=== PATIENT | male | born 1930 | race Caucasian/White ===

== ENCOUNTER → 2016-06-20 | Outpatient (CLI) | payer MEDICARE, OTHER ==
[~2016-06-20] MED LIST: 1-ME1LIQ PO; ATEN1TAB73 PO; CLOP75 PO; ECOT81TA2 PO; ISOS120T14 PO; LOSA50TA PO; PROS5TAB2 PO; RANI150T PO
[2016-06-20 12:59] LABS: AUTOMATED NEUTROPHIL # 4.2 TH/MM3 (1.8-7.7); BASOPHIL % 0.7 % (0.0-2.0); EOSINOPHIL # 0.2 TH/MM3 (0-0.4); EOSINOPHIL % 2.7 % (0.0-4.0); HEMATOCRIT 39.3 % (39.0-51.0); HEMO FLAGS DIFF FINAL; LYMPH % 18.6 % (9.0-44.0); LYMPHOCYTE # 1.2 TH/MM3 (1.0-4.8); MEAN CELL VOLUME 85.1 FL (80.0-100.0); MEAN CORPUSCULAR HEMOGLOBIN 29.6 PG (27.0-34.0); MEAN CORPUSCULAR HGB CONC 34.7 % (32.0-36.0); MONO % 10.4 % (0.0-8.0); NEUT % 67.6 % (16.0-70.0); PLATELET COUNT 175 TH/MM3 (150-450); RED BLOOD COUNT 4.62 MIL/MM3 (4.50-5.90); RED CELL DISTRIBUTION WIDTH 15.4 % (11.6-17.2); WHITE BLOOD COUNT 6.2 TH/MM3 (4.0-11.0)
== END ==
LOC: PLAB 08:57
PROVIDERS: ATTEND Internal Medicine Interventional Cardiology
DX: I11.9 Hypertensive heart disease without heart failure (principal); E78.5 Hyperlipidemia, unspecified; R00.1 Bradycardia, unspecified
CPT/HCPCS: 36415; 85025

== ENCOUNTER → 2016-07-13 | Outpatient (CLI) | payer MEDICARE, OTHER ==
[2016-07-13 13:20] LABS: BACTERIA, URINE RARE /hpf; BLOOD, URINE NEG (NEG); GLUCOSE,URINE NEG (NEG); KETONE, URINE NEG (NEG); NITRITE,URINE NEG (NEG); URINE COLOR YELLOW (YELLW/STRAW)
[2016-07-13 13:26] LABS: ALT (GPT) 20 U/L (12-78); ANION GAP 7 MEQ/L (5-15); AST (GOT) 21 U/L (15-37); BICARBONATE 26.8 MEQ/L (21.0-32.0); BLOOD UREA NITROGEN 5 MG/DL (7-18); CHLORIDE 98 MEQ/L (98-107); GLOMERULAR FILTRATION RATE 101 ML/MIN (>89); GLUCOSE,FASTING 89 MG/DL (74-99); SODIUM (NA) 132 MEQ/L (136-145)
[2016-07-13 13:30] LABS: AUTOMATED NEUTROPHIL # 4.4 TH/MM3 (1.8-7.7); BASOPHIL % 0.8 % (0.0-2.0); EOSINOPHIL # 0.2 TH/MM3 (0-0.4); EOSINOPHIL % 2.5 % (0.0-4.0); HEMATOCRIT 38.7 % (39.0-51.0); HEMO FLAGS DIFF FINAL; LYMPH % 18.1 % (9.0-44.0); LYMPHOCYTE # 1.2 TH/MM3 (1.0-4.8); MEAN CELL VOLUME 82.9 FL (80.0-100.0); MEAN CORPUSCULAR HEMOGLOBIN 28.7 PG (27.0-34.0); MEAN CORPUSCULAR HGB CONC 34.6 % (32.0-36.0); MONO % 10.7 % (0.0-8.0); NEUT % 67.9 % (16.0-70.0); PLATELET COUNT 175 TH/MM3 (150-450); RED BLOOD COUNT 4.67 MIL/MM3 (4.50-5.90); WHITE BLOOD COUNT 6.4 TH/MM3 (4.0-11.0)
[2016-07-13 13:53] LABS: ALKALINE PHOSPHATASE 72 U/L (45-117); HDL CHOLESTEROL 46.3 MG/DL (40.0-60.0); LDL CHOLESTEROL 52 MG/DL (0-99); TOTAL BILIRUBIN ADULT 0.9 MG/DL (0.2-1.0)
== END ==
LOC: PLAB 09:29
PROVIDERS: ATTEND Internal Medicine
DX: E53.8 Deficiency of other specified B group vitamins (principal); E78.00 Pure hypercholesterolemia, unspecified; I10 Essential (primary) hypertension; R73.01 Impaired fasting glucose; R69 Illness, unspecified; E55.9 Vitamin D deficiency, unspecified; I25.10 Atherosclerotic heart disease of native coronary artery without angina pectoris; Z79.899 Other long term (current) drug therapy
CPT/HCPCS: 36415; 80053; 80061; 81001; 82306; 82607; 84443; 85025

== ENCOUNTER → 2016-08-31 | Outpatient (CLI) | payer MEDICARE, OTHER | LOC: PLAB 09:51 | DX: N40.0 Benign prostatic hyperplasia without lower urinary tract symptoms (principal) | CPT/HCPCS: 36415; 84153 ==

== ENCOUNTER 2016-12-19 18:22 | Inpatient (IN) | payer MEDICARE, OTHER ==
[~2016-12-19] VITALS: Ht 175.3 cm; Wt 79.8 kg
[2016-12-19 18:29] VITALS: BP 150/76; PULSE 98; RESP 16; TEMP 99.7; O2SAT 89
[2016-12-19] MEDS ORDERED: ZITHTAB PO (18:39)
[2016-12-19] MEDS ORDERED: CEFEPIME INJ 2,000 MG in SODIUM CHLORIDE 0.9% INJ 100 ML IV STA (18:50)
[2016-12-19] MEDS ORDERED: VANCOMYCIN INJ 1,500 MG in SODIUM CHLORID 0.9% 500 ML INJ 500 ML IV STA (18:50)
[2016-12-19] MEDS ORDERED: CEFEPIME INJ 2,000 MG in SODIUM CHLORIDE 0.9% INJ 100 ML IV SCH (19:00)
--- NOTE | 2016-12-19 19:20 | RADRPT ---
EXAM DATE/TIME: 12/19/2016 19:10 [facility] COMPARISON: CHEST SINGLE AP, March 18, 2016, 7:33. INDICATIONS : Fever starting today MEDICAL HISTORY : None. SURGICAL HISTORY : CABG. ENCOUNTER: Initial ACUITY: 1 day PAIN SCORE: 0/10 LOCATION: Bilateral chest FINDINGS: A single view of the chest demonstrates bibasilar patchy airspace disease. Cardiomegaly and previous CABG.. Osseous structures are intact. CONCLUSION: Bibasilar patchy pneumonia. Justin Li MD on December 19, 2016 at 19:18 Board Certified Radiologist. This report was verified electronically.
[2016-12-19 19:35] LABS: AUTOMATED NEUTROPHIL # 4.3 TH/MM3 (1.8-7.7); BASOPHIL % 0.4 % (0.0-2.0); EOSINOPHIL % 0.1 % (0.0-4.0); HEMATOCRIT 43.5 % (39.0-51.0); HEMO FLAGS DIFF FINAL; LYMPH % 11.1 % (9.0-44.0); LYMPHOCYTE # 0.6 TH/MM3 (1.0-4.8); MEAN CELL VOLUME 86.2 FL (80.0-100.0); MEAN CORPUSCULAR HEMOGLOBIN 29.9 PG (27.0-34.0); MEAN CORPUSCULAR HGB CONC 34.7 % (32.0-36.0); MONO % 13.2 % (0.0-8.0); NEUT % 75.2 % (16.0-70.0); PLATELET COUNT 126 TH/MM3 (150-450); RED BLOOD COUNT 5.05 MIL/MM3 (4.50-5.90); RED CELL DISTRIBUTION WIDTH 13.6 % (11.6-17.2); WHITE BLOOD COUNT 5.7 TH/MM3 (4.0-11.0)
[2016-12-19 19:43] LABS: CHLORIDE 94 MEQ/L (98-107); POTASSIUM 3.2 MEQ/L (3.5-5.1); SODIUM (NA) 130 MEQ/L (136-145)
[2016-12-19 19:47] LABS: ANION GAP 11 MEQ/L (5-15); BICARBONATE 24.8 MEQ/L (21.0-32.0); BLOOD UREA NITROGEN 10 MG/DL (7-18)
[2016-12-19 19:50] LABS: ALT (GPT) 33 U/L (12-78); AST (GOT) 45 U/L (15-37); GLOMERULAR FILTRATION RATE 90 ML/MIN (>89)
[2016-12-19 19:52] LABS: TOTAL BILIRUBIN ADULT 1.5 MG/DL (0.2-1.0)
[2016-12-19 19:53] LABS: ALKALINE PHOSPHATASE 71 U/L (45-117)
--- NOTE | 2016-12-19 19:59 | PD ---
HPI Chief Complaint: Fever Time Seen by Provider: 18:28 Travel History International Travel<30 days: No Contact w/Intl Traveler<30days: No Traveled to known affect area: No History of Present Illness HPI 86-year-old male arrives with family. He has been very weak for the past 5 or 6 days. He has developed a fever over the past couple days. His appetite has been markedly decreased and he is almost nothing. He reports a constant total body weakness. The cough is reported. He has no vomiting however he has been feeling nauseated. No diarrhea. Urination seems decreased. The patient underwent aortic valve replacement about 5 months ago. Numerous family members have had fever lately. He's had no chest pain or shortness of breath. PFSH Past Medical History Hx Anticoagulant Therapy: Yes (PLAVIX) Arthritis: Yes Asthma: No Blood Disorders: No Heart Rhythm Problems: No Cancer: No Cardiovascular Problems: Yes High Cholesterol: Yes Chemotherapy: No Chest Pain: Yes Congestive Heart Failure: No COPD: No Cerebrovascular Accident: Yes Coronary Artery Disease: Yes Diabetes: No Diminished Hearing: Yes Endocrine: No Glaucoma: No Genitourinary: Yes Headaches: No Hypertension: Yes Immune Disorder: No Kidney Stones: No Musculoskeletal: Yes Neurologic: Yes Psychiatric: No Reproductive: No Respiratory: No Immunizations Current: Yes Migraines: No Myocardial Infarction: Yes Radiation Therapy: No Renal Failure: No Seizures: No Sleep Apnea: No Thyroid Disease: No Past Surgical History Abdominal Surgery: Yes (LEFT HERNIA) AICD: No Arteriovenous Shunt: No Cardiac Surgery: Yes (CAB2000) Coronary Artery Bypass Graft: Yes (2000) Coronary Stent: Yes (04/2016) Ear Surgery: No Endocrine Surgery: No Eye Surgery: No Genitourinary Surgery: No Gynecologic Surgery: No Insulin Pump: No Joint Replacement: No Neurologic Surgery: No Oral Surgery: No Pacemaker: No Thoracic Surgery: No Valve Replacement: Yes (MAY 2016) Other Surgery: Yes Social History Alcohol Use: No Tobacco Use: No Substance Use: No Allergies-Medications (Allergen,Severity, Reaction): Coded Allergies: Iodine (Verified Allergy, Severe, 12/19/16) Crab (Verified Allergy, Mild, 12/19/16) ITCHING Reported Meds & Prescriptions Reported Meds & Active Scripts Active Reported Zithromax Z-Fam (Azithromycin) 250 Mg Dspk 250 Mg PO DIRECTED 500 MG (2 tabs) day 1, then 1 tab days 2-5. Ranitidine 150 mg (Ranitidine HCl) 150 Mg Tab 1 Tab PO DAILY PRN 1-Methyl 2-Pyrrolidinone (1-Methyl 2-Pyrrolidone (Bulk)) 10 Mg Tab 1 Tab PO DAILY Isosorbide Mononitrate Er (Isosorbide Mononitrate) 120 Mg Tab 120 Mg PO DAILY Losartan Potassium 50 MG (Losartan Potassium) 50 Mg Tab 50 Mg PO DAILY Tenormin (Atenolol) 25 Mg Tab 50 Mg PO BID Proscar (Finasteride) 5 Mg Tab 5 Mg PO DAILY Ecotrin Low Strength (Aspirin) 81 Mg Tabec 81 Mg PO HS Plavix (Clopidogrel Bisulfate) 75 Mg Tab 75 Mg PO DAILY Review of Systems Except as stated in HPI: all other systems reviewed are Neg General / Constitutional: Positive: Fever Cardiovascular: No: Chest Pain or Discomfort Respiratory: Positive: Cough, No: Shortness of Breath Physical Exam Narrative GENERAL: 86-year-old male well-nourished well-developed pleasant warm to palpation SKIN: Focused skin assessment warm/dry. HEAD: Atraumatic. Normocephalic. EYES: Pupils equal and round. No scleral icterus. No injection or drainage. ENT: No nasal bleeding or discharge. Mucous membranes pink and moist. NECK: Trachea midline. No JVD. CARDIOVASCULAR: Heart rate approximately 90-100. No murmur appreciated. RESPIRATORY: No accessory muscle use. Clear to auscultation. Breath sounds equal bilaterally. GASTROINTESTINAL: Abdomen soft, non-tender, nondistended. Hepatic and splenic margins not palpable. MUSCULOSKELETAL: No obvious deformities. No clubbing. No cyanosis. No edema. NEUROLOGICAL: Awake and alert. No obvious cranial nerve deficits. Motor grossly within normal limits. Normal speech. PSYCHIATRIC: Appropriate mood and affect; insight and judgment normal. Data Data Last Documented VS Vital Signs Date Time Temp Pulse Resp B/P Pulse Ox O2 Delivery O2 Flow Rate FiO2 12/19/16 18:56 93 Nasal Cannula 2 12/19/16 18:29 99.7 98 16 150/76 Vital signs reviewed Orders Complete Blood Count With Diff (12/19/16 18:50) Comprehensive Metabolic Panel (12/19/16 18:50) Lactic Acid Sepsis Protocol (12/19/16 18:50) Urinalysis - C+S If Indicated (12/19/16 18:50) Influenzae A/B Antigen (12/19/16 18:50) Blood Culture (12/19/16 18:50) Chest, Single Ap (12/19/16 18:50) Blood Glucose (12/19/16 18:50) Ecg Monitoring (12/19/16 18:50) Iv Access Insert/Monitor (12/19/16 18:50) Oximetry (12/19/16 18:50) Oxygen Administration (12/19/16 18:50) Vancomycin Inj (Vancomycin Inj) (12/19/16 18:50) Cefepime Inj (Maxipime Inj) (12/19/16 18:50) Admit Order (Ed Use Only) (12/19/16 20:11) Labs Laboratory Tests Test 12/19/16 19:25 White Blood Count 5.7 TH/MM3 Red Blood Count 5.05 MIL/MM3 Hemoglobin 15.1 GM/DL Hematocrit 43.5 % Mean Corpuscular Volume 86.2 FL Mean Corpuscular Hemoglobin 29.9 PG Mean Corpuscular Hemoglobin 34.7 % Concent Red Cell Distribution Width 13.6 % Platelet Count 126 TH/MM3 Mean Platelet Volume 7.0 FL Neutrophils (%) (Auto) 75.2 % Lymphocytes (%) (Auto) 11.1 % Monocytes (%) (Auto) 13.2 % Eosinophils (%) (Auto) 0.1 % Basophils (%) (Auto) 0.4 % Neutrophils # (Auto) 4.3 TH/MM3 Lymphocytes # (Auto) 0.6 TH/MM3 Monocytes # (Auto) 0.8 TH/MM3 Eosinophils # (Auto) 0.0 TH/MM3 Basophils # (Auto) 0.0 TH/MM3 CBC Comment DIFF FINAL Differential Comment Sodium Level 130 MEQ/L Potassium Level 3.2 MEQ/L Chloride Level 94 MEQ/L Carbon Dioxide Level 24.8 MEQ/L Anion Gap 11 MEQ/L Blood Urea Nitrogen 10 MG/DL Creatinine 0.82 MG/DL Estimat Glomerular Filtration 90 ML/MIN Rate Random Glucose 117 MG/DL Lactic Acid Level 1.3 mmol/L Calcium Level 8.3 MG/DL Total Bilirubin 1.5 MG/DL Aspartate Amino Transf 45 U/L (AST/SGOT) Alanine Aminotransferase 33 U/L (ALT/SGPT) Alkaline Phosphatase 71 U/L Total Protein 6.7 GM/DL Albumin 3.3 GM/DL MDM Medical Decision Making Medical Screen Exam Complete: Yes Emergency Medical Condition: Yes Medical Record Reviewed: Yes Differential Diagnosis Sepsis, pneumonia, UTI, viral syndrome, dehydration, renal failure, anemia Narrative Course CBC & BMP Diagram 12/19/16 19:25 LA 1.3 LFTs grossly unremarkable Chest x-ray reveals bilateral pneumonia as Vicryl and cefepime started Patient will be admitted for treatment of bilateral pneumonia. Case discussed with Yosi Muhammad. Diagnosis Primary Impression: PNA (pneumonia) Qualified Code: J18.9 - Pneumonia of both lower lobes due to infectious organism Admitting Information Admitting Physician Requests: Admit Stanley Farias MD Dec 19, 2016 19:59
[2016-12-19 20:29] VITALS: BP 151/75; PULSE 97; RESP 20; O2SAT 96
[2016-12-19 20:30] VITALS: PULSE 94; RESP 20; TEMP 100.1; O2SAT 96
[2016-12-19] MEDS ORDERED: ASPI81TA81 PO (20:56)
[2016-12-19] MEDS ORDERED: AMLO10TA2 PO (20:56)
[2016-12-19] MEDS ORDERED: ISOS120T PO (20:56)
[2016-12-19] MEDS ORDERED: ATEN50TA PO (20:56)
[2016-12-19] MEDS ORDERED: CLOP75TA PO (20:56)
[2016-12-19] MEDS ORDERED: ISOS60TA PO (20:56)
[2016-12-19] MEDS ORDERED: PROS5TAB PO (20:56)
[2016-12-19] MEDS ORDERED: LOSA50TA PO (20:56)
[2016-12-19] MEDS ORDERED: ATOR1TAB18 PO (20:56)
[2016-12-19] MEDS ORDERED: NALOXONE HCL 0.4 MG/ML AMP IV PRN (21:00)
[2016-12-19] MEDS ORDERED: Vancomycin Consult Pharmacy 1 EA OTHER SCH (21:00)
[2016-12-19] MEDS ORDERED: ACETAMINOPHEN 325 MG TAB PO PRN (21:30)
[2016-12-19 21:37] VITALS: O2SAT 93
[2016-12-19 21:57] VITALS: BP 145/72; PULSE 98; RESP 20; O2SAT 96
[2016-12-19] MEDS ORDERED: POTASSIUM CHLORIDE 25 MEQ EFFERVESCENT TAB PO ONE (22:00)
[2016-12-19] MEDS ORDERED: ONDANSETRON HCL 4 MG/2 ML VIAL IVP PRN (22:00)
[2016-12-19] MEDS ORDERED: SENNOSIDES 8.6 MG TAB PO PRN (22:00)
[2016-12-19] MEDS: SODIUM CHLOR 0.9% 1000 ML INJ 1,000 ML IV SCH (22:14)
[2016-12-19] MEDS: ACETAMINOPHEN 325 MG TAB PO PRN (22:15)
[2016-12-19] MEDS: HEPARIN SODIUM - SQ 10,000 UNITS/ML VIAL SQ SCH (22:15)
[2016-12-19] MEDS: SODIUM CHLORIDE 0.9% FLUSH 10 ML FLUSH IV FLUSH SCH (22:16)
[2016-12-19 23:27] VITALS: BP 114/70; TEMP 100.7
[2016-12-19 23:47] LABS: BLOOD, URINE LARGE (NEG); KETONE, URINE 15 mg/dL (NEG); NITRITE,URINE NEG (NEG)
[2016-12-19 23:52] LABS: GLUCOSE,URINE 1000 OR GREATER mg/dL (NEG); URINE COLOR AMBER (YELLW/STRAW)
[2016-12-19 23:53] LABS: COMMENT (UR) CULT NOT INDICATED; CULTURE IF INDICATED CULT NOT INDICATED; SQUAMOUS EPITHELIAL CELL URINE 0-5 /hpf (0-5); WBC, URINE 0-2 /hpf (0-5)
[2016-12-20] VITALS (8 sets, daily range): BP systolic 95–133; BP diastolic 64–78; PULSE 76–120; RESP 15–18; TEMP 97–98.7; O2SAT 92–98
[2016-12-20 06:18] LABS: BASOPHIL % 0.5 % (0.0-2.0); EOSINOPHIL % 0.5 % (0.0-4.0); HEMATOCRIT 46.3 % (39.0-51.0); HEMO FLAGS DIFF FINAL; LYMPH % 15.4 % (9.0-44.0); LYMPHOCYTE # 0.8 TH/MM3 (1.0-4.8); MEAN CELL VOLUME 87.3 FL (80.0-100.0); MEAN CORPUSCULAR HEMOGLOBIN 28.8 PG (27.0-34.0); MONO % 12.9 % (0.0-8.0); NEUT % 70.7 % (16.0-70.0); PLATELET COUNT 112 TH/MM3 (150-450); RED CELL DISTRIBUTION WIDTH 13.4 % (11.6-17.2); WHITE BLOOD COUNT 5.5 TH/MM3 (4.0-11.0)
[2016-12-20 06:36] LABS: CHLORIDE 96 MEQ/L (98-107); POTASSIUM 3.3 MEQ/L (3.5-5.1); SODIUM (NA) 132 MEQ/L (136-145)
[2016-12-20] MEDS: CEFEPIME INJ 2,000 MG in SODIUM CHLORIDE 0.9% INJ 100 ML IV SCH ×2 (06:39→18:07)
[2016-12-20] MEDS: SODIUM CHLOR 0.9% 1000 ML INJ 1,000 ML IV SCH ×2 (06:40→15:31)
[2016-12-20] MEDS: SODIUM CHLORIDE 0.9% FLUSH 10 ML FLUSH IV FLUSH PRN (06:40)
[2016-12-20 06:44] LABS: ANION GAP 10 MEQ/L (5-15); BICARBONATE 26.5 MEQ/L (21.0-32.0)
[2016-12-20 06:45] LABS: BLOOD UREA NITROGEN 10 MG/DL (7-18)
[2016-12-20 06:47] LABS: ALT (GPT) 33 U/L (12-78); AST (GOT) 42 U/L (15-37)
[2016-12-20 06:48] LABS: GLOMERULAR FILTRATION RATE 98 ML/MIN (>89); TOTAL BILIRUBIN ADULT 1.4 MG/DL (0.2-1.0)
[2016-12-20 06:50] LABS: ALKALINE PHOSPHATASE 69 U/L (45-117)
[2016-12-20] MEDS: ACETAMINOPHEN 325 MG TAB PO PRN (08:55)
[2016-12-20] MEDS: HEPARIN SODIUM - SQ 10,000 UNITS/ML VIAL SQ SCH ×2 (08:56→21:07)
[2016-12-20] MEDS: SODIUM CHLORIDE 0.9% FLUSH 10 ML FLUSH IV FLUSH SCH ×2 (09:00→20:28)
[2016-12-20] MEDS ORDERED: ISOSORBIDE MONONITRATE 60 MG TAB PO SCH (09:30)
--- NOTE | 2016-12-20 09:53 | MH ---
cc: JARAD FALCON MD DATE OF ADMISSION: 12/19/2016 CHIEF COMPLAINT Fever, cough. HISTORY OF PRESENT ILLNESS This is an 86-year-old male with past medical-surgical history significant for arthritis. History of hyperlipidemia, history of stroke in the past, coronary artery disease, hard of hearing, history of bypass surgery in 2000 and stent placement in the heart in April 2016, history of left inguinal hernia repair and aortic valve replacement in May 2016. He came to the ER at [facility] [place] complaining of cough, fever and feeling generalized weak and tired for the last 5-6 days. He developed a fever for the last 2 days and appetite has been markedly decreased and almost has no appetite. He reported constant body total weakness and cough is dry and he has been feeling nauseated and decreased urination. Denies any chest pain, shortness of breath. Other than that, nothing significant. PAST MEDICAL-SURGICAL HISTORY As dictated above. SOCIAL HISTORY Denies smoking, drinking, taking any drugs. Lives at home with the . He is retired. FAMILY HISTORY Significant that Dad of a stroke. ALLERGIES IODINE. CRAB. MEDICATIONS 1. Zithromax Z-Fam p.o. as directed. 2. Ranitidine 150 mg daily. 3. 1-Methyl 2-pyrrolidine 10 mg daily. 4. Isosorbide mononitrate 120 mg p.o. daily. 5. Losartan 50 mg p.o. daily. 6. Tenormin 25 mg twice a day. 7. Proscar 5 mg p.o. daily. 8. Ecotrin 81 mA daily. 9. Plavix 75 mg daily. REVIEW OF SYSTEMS All review of systems are negative except for fever, cough, feeling generalized weak and tired. All other review of systems negative. PHYSICAL EXAMINATION GENERAL: This is an 86-year-old male sitting on the bed, not in acute distress. VITAL SIGNS: Temperature 98.7, heart rate 95, respirations 18, blood pressure 115/72, O2 saturation 93% with 2 liters nasal cannula. HEENT: Normocephalic, atraumatic. EOMI. PERRL. Oral mucosa moist. NECK: Supple. No visible thyromegaly or neck mass. Trachea is central. CVS: Regular rate and rhythm. RESPIRATIONS: Clear to auscultation bilaterally. ABDOMEN: Soft, nontender. Bowel sounds audible. EXTREMITIES: No cyanosis or clubbing. Full range of motion of all extremities. NEURO: Awake, alert, oriented x 4. No focal deficits. SKIN: Warm and dry. PSYCH: The patient is cooperative. Mood and affect normal. LABORATORY DATA CBC is totally unremarkable except for platelet count of 112 - low. BMP totally unremarkable except for sodium of 132 - low, potassium 3.3 - low, chloride 96 - low, calcium 8.2 - low, total bilirubin 1.4 - high. AST 42 0- high, albumin 3.1 - low. Urine examination done, showed RBC 10-14, large occult blood, glucose greater than 1000. Culture not indicated. Blood cultures x 2 done, negative so far. Influenza A and B antigen negative. X-RAYS Chest x-ray was done shows bibasilar patchy airspace disease, cardiomegaly and previous CABG, osseous structures intact. ASSESSMENT AND PLAN 1. This is an 86-year-old male, diagnosed with generalized weakness and cough and a fever secondary to bilateral pneumonia. The patient is on vancomycin and cefepime. I will consult Pulmonary for further recommendation. 2. His hyponatremia will be monitored. 3. Hypokalemia. Replace potassium. 4. History of coronary artery disease. Continue home medications. 5. History of hypertension. Continue home medications. will monitor blood pressure. 6. GERD. of cigar Protonix 40 mg p.o. daily. 7. DVT prophylaxis. Heparin 5000 units subcutaneous q. 12-hours. 8. GI prophylaxis. Protonix 40 mg p.o. daily. 9. We are going to manage the patient on a daily basis and make recommendations on a daily basis. Jarad Falcon MD EA/ASHLEY /9:12 AM /9:35 AM
[2016-12-20] MEDS ORDERED: POTASSIUM CHLORIDE 10 MEQ CONTROLLED RELEASE TAB PO ONE (10:00)
[2016-12-20] MEDS: ATENOLOL 50 MG TAB PO SCH ×2 (10:25→21:07)
[2016-12-20] MEDS: ISOSORBIDE MONONITRATE 60 MG TAB PO SCH (10:25)
[2016-12-20] MEDS: ASPIRIN EC 81 MG TABEC PO SCH (10:25)
[2016-12-20] MEDS: CLOPIDOGREL 75 MG TAB PO SCH (10:25)
[2016-12-20] MEDS: FINASTERIDE 5 MG TAB PO SCH (10:25)
[2016-12-20] MEDS: LOSARTAN 50 MG TAB PO SCH (10:25)
[2016-12-20] MEDS: VANCOMYCIN 1,500 MG/NS 500 ML IV SCH ×2 (15:25)
[2016-12-20] MEDS: RESP: ALBUTEROL 2.5 MG/IPRATROPIUM 0.5 MG NEB (SCH) NEB ×2 (16:04→21:37)
[2016-12-20] MEDS: ACETAMINOPHEN/HYDROcodone 325 MG/5 MG TAB PO PRN (18:07)
[2016-12-20] MEDS: ATORVASTATIN 40 MG TAB PO SCH (21:07)
[2016-12-20] MEDS: methylPREDNISolone SOD SUCC 40 MG/1 ML VIAL IV PUSH SCH (21:08)
[2016-12-20 21:21] LABS: BLOOD GAS BASE EXCESS -0.7 mmol/L (-2-2); BLOOD GAS CARBOXYHEMOGLOBIN 1.9 % (0-4); BLOOD GAS HCO3 23 mmol/L (22-26); BLOOD GAS METHEMOGLOBIN 0.8 % (0-2); BLOOD GAS OXYGEN CONTENT 16.7 Vol % (12.0-20.0); BLOOD GAS PCO2 33 mmHG (38-42); BLOOD GAS PO2 57 mmHG (61-120); BLOOD GAS TOTAL HGB 13.5 G/DL (12.0-16.0); TEMP CORR TO 98.6
[2016-12-20 21:23] LABS: CRITICAL VALUE YES; DRAW SITE RT RADIAL; FIO2 21 %; NUMBER OF ARTERIAL PUNCTURES 1; STAT NO; ULNAR PULSE Y
[2016-12-20 21:24] LABS: BLOOD GAS O2 HGB SATURATION 88 % (90-100)
--- NOTE | 2016-12-20 21:56 | RADRPT ---
EXAM DATE/TIME: 12/20/2016 21:15 [facility] COMPARISON: No previous studies available for comparison. INDICATIONS : Asbestosis. Bilateral PNA RADIATION DOSE: 12.24 CTDIvol (mGy) MEDICAL HISTORY : Cerebrovascular disease. SURGICAL HISTORY : CABG Hernia repair, Aortic valve replacement ENCOUNTER: Initial ACUITY: 1 day PAIN SCALE: 0/10 LOCATION: chest TECHNIQUE: Volumetric scanning of the chest was performed. Using automated exposure control and adjustment of t he mA and/or kV according to patient size, radiation dose was kept as low as reasonably achievable to obtain optimal diagnostic quality images. DICOM format image data is available electronically for r eview and comparison. Follow-up recommendations for incidentally detected pulmonary nodules are based at a minimum on nodul e size and patient risk factors according to Fleischner Society Guidelines. FINDINGS: There is pulmonary fibrosis which has a predominantly basilar and somewhat peripheral distribution. T here is honeycombing at both lung bases with traction bronchiectasis. No calcified pleural plaques ar e seen to suggest prior asbestos exposure. There is no pleural or pericardial effusion. Stent graft i s present in the ascending aorta. There is dense coronary calcification. Elevated right hemidiaphragm . Multiple borderline to mildly enlarged mediastinal lymph nodes are present. No acute findings in the upper abdomen. Colonic ileus noted. CONCLUSION: 1. Pulmonary fibrosis in a basilar distribution with traction bronchiectasis and honeycombing. 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 No autumn dence for asbestos pleural disease. No effusions. Previous surgery as above. 2. No focal dense consolidation identified. No pneumothorax. Arun Thomas MD on December 20, 2016 at 21:51 Board Certified Radiologist. This report was verified electronically.
--- NOTE | 2016-12-20 22:39 | MB ---
cc: Anusha CHAN M.D. DATE OF CONSULTATION 12/20/16 REASON FOR CONSULTATION Pneumonia and respiratory distress. HISTORY OF PRESENT ILLNESS This is an 86-year-old white male who was admitted with complaints of fever, shortness of breath, weakness and wheezing. The patient also had been taking very little orally, became quite dehydrated and apparently had some nausea and had a poor urine output. Upon admission, the patient did have a chest x-ray which showed patchy bilateral basilar infiltrates. He also was hyponatremic and hypokalemic. He has been started on IV fluids and feels a little better but on oxygen at two liters nasal cannula. He does have a cough but does not bring up any sputum and he denies hemoptysis. PAST HISTORY 1. History for coronary artery disease and coronary artery bypass. He has had coronary stenting as well. 2. Inguinal hernia repair in the past 3. Aortic valve replacement done in May this year. 4. Previous history for strokes 5. History for hyperlipidemia 6. Hypertension 7. 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 HABITS The patient does not smoke. No significant alcohol use. 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 FAMILY HISTORY Significant for hypertension and strokes. ALLERGIES IODINE MEDICATIONS 1. Losartan 50 mg a day, 2. Isordil 120 mg daily, 3. Tenormin 25 mg b.i.d. 4. Proscar 5 mg a day, 5. Plavix 75 mg daily, 6. Ecotrin 81 mg 7. Zantac 150 mg a day. REVIEW OF SYSTEMS The patient has gained weight. He has some leg swelling. Denies headaches or blackouts. He has some urinary frequency and he has some anxiety. He does have joint pains of the extremities. Denies any chest pains. The other system review as in presenting complaint. PHYSICAL EXAMINATION GENERAL: This is an averagely built elderly man who is pale and in no acute distress. VITAL SIGNS: Blood pressure 140/70, pulse is 75, respirations 18, temperature 97.5 HEENT: Head normocephalic. Pupils are reactive and equal. Tongue is moist. Throat is mildly injected. Nasal mucosa edematous. NECK: No bruits or thyroid enlargement or lymphadenopathy. Trachea midline. CHEST: Distant breath sounds with crackles at both lung bases with wheezes bilaterally, prolonged expirations. CARDIAC: Heart sounds are irregular S1-S2. No murmur. No S3. ABDOMEN: Soft, protuberant. No masses, no organomegaly or tenderness. Bowel sounds are active. EXTREMITIES: Mild edema with decreased peripheral pulses. NEUROLOGIC: Reflexes are 1+ with no gross motor deficits. Cranial nerves grossly intact. RECTAL: Exam is deferred. SKIN: No lesions. IMPRESSION 1. Bibasilar pulmonary infiltrates with atelectasis and possible basilar pneumonia. 2. History of coronary artery disease status post CABG 3. Hyperkalemia 4. Hypertension 5. 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 Gastroesophageal reflux. PLAN The patient has been started on antibiotic coverage including cefepime 2 grams b.i.d. and vancomycin 1.5 grams every 18 hours which we will continue. Add Zithromax 500 mg daily for atypicals. Nebulized DuoNeb solution q. six. A CT scan of the chest to be done to evaluate him for infiltrates and pleural plaques. Solu-Medrol 40 mg IV q.8 h was added. Pulmonary function study will be done at the bedside with bronchodilators. The patient will also give us a sputum specimen for culture and Gram stain and blood gases done on room air and oxygen supplementation placed at 2 liters nasal cannula if he is hypoxic. Thank you, Dr. Jarad Bedoya, for this consultation. MD JILL Manuel/ /8:11 PM /10:20 PM
[2016-12-21] VITALS (9 sets, daily range): BP systolic 138–150; BP diastolic 72–87; PULSE 76–88; RESP 18–24; TEMP 96.9–97.4; O2SAT 92–96
[2016-12-21] MEDS: SODIUM CHLOR 0.9% 1000 ML INJ 1,000 ML IV SCH ×2 (02:58→10:04)
[2016-12-21] MEDS: RESP: ALBUTEROL 2.5 MG/IPRATROPIUM 0.5 MG NEB (SCH) NEB ×4 (03:52→22:30)
[2016-12-21 06:08] LABS: HEMATOCRIT 44.3 % (39.0-51.0); MEAN CELL VOLUME 87.2 FL (80.0-100.0); MEAN CORPUSCULAR HEMOGLOBIN 29.8 PG (27.0-34.0); MEAN CORPUSCULAR HGB CONC 34.2 % (32.0-36.0); PLATELET COUNT 110 TH/MM3 (150-450); RED BLOOD COUNT 5.07 MIL/MM3 (4.50-5.90); RED CELL DISTRIBUTION WIDTH 13.7 % (11.6-17.2); WHITE BLOOD COUNT 4.2 TH/MM3 (4.0-11.0)
[2016-12-21 06:09] LABS: CHLORIDE 97 MEQ/L (98-107); HEMO FLAGS AUTO DIFF; POTASSIUM 3.2 MEQ/L (3.5-5.1); SODIUM (NA) 132 MEQ/L (136-145)
[2016-12-21 06:16] LABS: ANION GAP 10 MEQ/L (5-15); BICARBONATE 25.3 MEQ/L (21.0-32.0)
[2016-12-21] MEDS: methylPREDNISolone SOD SUCC 40 MG/1 ML VIAL IV PUSH SCH ×3 (06:16→21:36)
[2016-12-21 06:17] LABS: BLOOD UREA NITROGEN 6 MG/DL (7-18)
[2016-12-21] MEDS: CEFEPIME INJ 2,000 MG in SODIUM CHLORIDE 0.9% INJ 100 ML IV SCH ×2 (06:17→18:36)
[2016-12-21] MEDS: ISOSORBIDE MONONITRATE 60 MG TAB PO SCH (06:17)
[2016-12-21 06:19] LABS: ALT (GPT) 31 U/L (12-78); AST (GOT) 42 U/L (15-37)
[2016-12-21 06:20] LABS: GLOMERULAR FILTRATION RATE 109 ML/MIN (>89)
[2016-12-21 06:21] LABS: TOTAL BILIRUBIN ADULT 1.2 MG/DL (0.2-1.0)
[2016-12-21] MEDS: ACETAMINOPHEN/HYDROcodone 325 MG/5 MG TAB PO PRN ×2 (06:21)
[2016-12-21 06:22] LABS: ALKALINE PHOSPHATASE 61 U/L (45-117)
[2016-12-21 06:26] LABS: BANDS 4 % (0-6); NEUTROPHIL # MANUAL DIFF 3.7 TH/MM3 (1.8-7.7); PLATELET ESTIMATE SMEAR LOW (NORMAL); PLATELET MORPHOLOGY NORMAL (NORMAL); POLYS (SEG NEUTROPHILS) 85 % (16-70); SCAN/DIFF AUTO DIFF CONFIRMED; WBC DIFF SAMPLE 100
--- NOTE | 2016-12-21 08:20 | HHI.PR ---
Subjective History of Present Illness Patient still SOB but better no acute issue. Review of Systems Constitutional Constitutional: Fatigue, Weakness Pulmonary Respiratory: Coughing, Shortness of Breath Vitals/Results Intake & Output 12/20/16 12/20/16 12/21/16 15:00 23:00 07:00 Intake Total 3460 ml 150 ml Output Total 2000 ml 800 ml Balance 1460 ml -650 ml Intake Oral 1460 ml 150 ml IV Total 2000 ml Output Urine Total 2000 ml 800 ml # Voids 3 # Bowel Movements 2 Vital Signs Vital Signs Date Time Temp Pulse Resp B/P Pulse Ox O2 Delivery O2 Flow Rate FiO2 12/21/16 00:00 97.2 77 19 140/87 95 12/20/16 21:35 93 Nasal Cannula 2.00 12/20/16 20:00 98.7 87 17 130/74 93 12/20/16 18:14 97.7 76 16 133/77 95 12/20/16 16:07 98 Nasal Cannula 2.00 12/20/16 14:01 97.0 77 15 95/64 98 12/20/16 10:15 98.0 120 15 128/78 94 12/20/16 09:55 20 CBC/BMP: 12/21/16 0508 12/21/16 0508 Lab Results Laboratory Tests Test 12/20/16 12/21/16 21:08 05:08 Blood Gas Puncture Site RT RADIAL Blood Gas Patient Temperature 98.6 Blood Gas HCO3 23 mmol/L Blood Gas Base Excess -0.7 mmol/L Blood Gas Oxygen Saturation 88 % Arterial Blood pH 7.46 Arterial Blood Partial 33 mmHG Pressure CO2 Arterial Blood Partial 57 mmHG Pressure O2 Arterial Blood Oxygen Content 16.7 Vol % Arterial Blood 1.9 % Carboxyhemoglobin Arterial Blood Methemoglobin 0.8 % Blood Gas Hemoglobin 13.5 G/DL Blood Gas Inspired Oxygen 21 % White Blood Count 4.2 TH/MM3 Red Blood Count 5.07 MIL/MM3 Hemoglobin 15.1 GM/DL Hematocrit 44.3 % Mean Corpuscular Volume 87.2 FL Mean Corpuscular Hemoglobin 29.8 PG Mean Corpuscular Hemoglobin 34.2 % Concent Red Cell Distribution Width 13.7 % Platelet Count 110 TH/MM3 Mean Platelet Volume 8.3 FL Neutrophils (%) (Auto) % Lymphocytes (%) (Auto) % Monocytes (%) (Auto) % Eosinophils (%) (Auto) % Basophils (%) (Auto) % Neutrophils # (Auto) TH/MM3 Lymphocytes # (Auto) TH/MM3 Monocytes # (Auto) TH/MM3 Eosinophils # (Auto) TH/MM3 Basophils # (Auto) TH/MM3 CBC Comment AUTO DIFF Differential Total Cells 100 Counted Neutrophils % (Manual) 85 % Band Neutrophils % 4 % Lymphocytes % 9 % Monocytes % 2 % Neutrophils # (Manual) 3.7 TH/MM3 Differential Comment AUTO DIFF CONFIRMED Platelet Estimate LOW Platelet Morphology Comment NORMAL Red Cell Morphology Comment NORMAL Sodium Level 132 MEQ/L Potassium Level 3.2 MEQ/L Chloride Level 97 MEQ/L Carbon Dioxide Level 25.3 MEQ/L Anion Gap 10 MEQ/L Blood Urea Nitrogen 6 MG/DL Creatinine 0.69 MG/DL Estimat Glomerular Filtration 109 ML/MIN Rate Random Glucose 131 MG/DL Calcium Level 8.1 MG/DL Total Bilirubin 1.2 MG/DL Aspartate Amino Transf 42 U/L (AST/SGOT) Alanine Aminotransferase 31 U/L (ALT/SGPT) Alkaline Phosphatase 61 U/L Total Protein 6.3 GM/DL Albumin 2.9 GM/DL Physical Exam General General Appearance: No Acute Distress, Comfortable Eyes Eye Exam: Pupils Equal, Pupils Reactive, Sclera White, Extraocular Movement Intact Throat Throat Exam: Oral Mucosa [place] & Moist, Oral Pharynx Normal Neck Neck Exam: Neck Supple, Trachea Midline Pulmonary Resp Exam: Decreased Bases, Diminished Breath Sounds Resp Remarks bilateral wheezing and crackles. Cardiology CV Exam: Regular, Normal Sinus Rhythm Integumentary Skin Exam: Clear, Warm, Dry, Intact Extremeties Extremities Exam: No Edema Neurologic Neuro Exam: Alert, Awake, Oriented, Speech Clear, Moving All Extremities, No Focal Deficits Psychiatric Psych Exam: Appropriate Responses VTE Prophylaxis VTE Prophylaxis Meds: Heparin PUD Prophylasis PUD Prophylaxis: Protonix Assessment/Plan Assessment/Plan ASSESSMENT AND PLAN 1. This is an 86-year-old male, diagnosed with generalized weakness and cough and a fever secondary to bilateral pneumonia. The patient is on vancomycin and cefepime. on duoneb neublization. Pulmonary input noted for further recommendation.Zithromas and solumedrol added. 2. hyponatremia will be monitored. 3. Hypokalemia. will replace and monitor and check magnesium level. 4. History of coronary artery disease. Continue home medications. 5. History of hypertension. Continue home medications. will monitor blood pressure. 6. GERD. of cigar Protonix 40 mg p.o. daily. 7. DVT prophylaxis. Heparin 5000 units subcutaneous q. 12-hours. 8. GI prophylaxis. Protonix 40 mg p.o. daily. 9. We are going to manage the patient on a daily basis and make recommendations on a daily basis Discussed Condition with: Patient Jarad Bedoya MD Dec 21, 2016 08:19
[2016-12-21] MEDS: SODIUM CHLORIDE 0.9% FLUSH 10 ML FLUSH IV FLUSH SCH ×2 (09:00→21:35)
[2016-12-21] MEDS: VANCOMYCIN 1,500 MG/NS 500 ML IV SCH ×2 (09:53)
[2016-12-21] MEDS: ASPIRIN EC 81 MG TABEC PO SCH (09:54)
[2016-12-21] MEDS: LOSARTAN 50 MG TAB PO SCH (09:55)
[2016-12-21] MEDS: CLOPIDOGREL 75 MG TAB PO SCH (09:55)
[2016-12-21] MEDS: AZITHROMYCIN 250 MG TAB PO SCH (09:55)
[2016-12-21] MEDS: ATENOLOL 50 MG TAB PO SCH ×2 (09:55→21:35)
[2016-12-21] MEDS: FINASTERIDE 5 MG TAB PO SCH (09:55)
[2016-12-21] MEDS: HEPARIN SODIUM - SQ 10,000 UNITS/ML VIAL SQ SCH ×2 (10:00→21:35)
[2016-12-21] MEDS ORDERED: POTASSIUM CHLORIDE 20 MEQ CONTROLLED RELEASE TAB PO ONE (18:30)
--- NOTE | 2016-12-21 19:28 | HHI.PR ---
Subjective Remarks Has a Cough but no fever. Better today. O2 sat 88 on RA. On antibiotics and Solumedrol IV. PFT pending. CT Chest Noted. Objective Vital Signs Date Time Temp Pulse Resp B/P Pulse Ox O2 Delivery O2 Flow Rate FiO2 12/21/16 16:16 92 Nasal Cannula 2.00 12/21/16 16:00 97.4 88 20 150/72 93 12/21/16 12:00 97.2 80 20 146/77 95 12/21/16 10:50 95 Nasal Cannula 2.00 12/21/16 09:45 93 12/21/16 08:00 97.3 77 24 146/86 94 12/21/16 00:00 97.2 77 19 140/87 95 12/20/16 21:35 93 Nasal Cannula 2.00 12/20/16 20:00 98.7 87 17 130/74 93 I/O 12/20/16 12/20/16 12/20/16 12/21/16 12/21/16 12/21/16 07:00 15:00 23:00 07:00 15:00 23:00 Intake Total 1178 ml 3460 ml 150 ml 650 ml Output Total 400 ml 2000 ml 800 ml 625 ml 700 ml Balance 778 ml 1460 ml -650 ml 25 ml -700 ml Intake Oral 180 ml 1460 ml 150 ml 650 ml IV Total 998 ml 2000 ml Output Urine Total 400 ml 2000 ml 800 ml 625 ml 700 ml # Voids 3 # Bowel Movements 0 2 0 Result Diagram: 12/21/16 0508 12/21/16 0508 Objective Remarks ENERAL: This is an averagely built elderly man who is pale and in no acute distress. HEENT: Head normocephalic. Pupils are reactive and equal. Tongue is moist. Throat is mildly injected. Nasal mucosa edematous. NECK: No bruits or thyroid enlargement or lymphadenopathy. Trachea midline. CHEST: Distant breath sounds with crackles at both lung bases with wheezes bilaterally, prolonged expirations. CARDIAC: Heart sounds are irregular S1-S2. No murmur. No S3. ABDOMEN: Soft, protuberant. No masses, no organomegaly or tenderness. Bowel sounds are active. EXTREMITIES: Mild edema with decreased peripheral pulses. NEUROLOGIC: Reflexes are 1+ with no gross motor deficits. Cranial nerves grossly intact. RECTAL: Exam is deferred. SKIN: No lesions. Assessment and Plan Assessment and Plan IMPRESSION 1. Bibasilar pulmonary infiltrates with atelectasis and possible basilar pneumonia. 2. History of coronary artery disease status post CABG 3. Hyperkalemia 4. Hypertension 5. 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 Gastroesophageal reflux. Plan : 1. Continue antibiotics as ordered. 2. o2 at 2 L. 3. Solumedrol 40 mg IV q8h. 4. PFT in am. 5. Arrange home O2 2 L. 6. Will add Cough med PRN. 7. BMP in am/Replace Potassium. Anusha Rosales MD Dec 21, 2016 19:28
[2016-12-21] MEDS: ATORVASTATIN 40 MG TAB PO SCH (21:35)
[2016-12-22] VITALS (7 sets, daily range): BP systolic 119–140; BP diastolic 70–79; PULSE 73–99; RESP 18–20; TEMP 95.7–97.4; O2SAT 92–96
[2016-12-22] MEDS: SODIUM CHLOR 0.9% 1000 ML INJ 1,000 ML IV SCH ×3 (03:03→18:58)
[2016-12-22] MEDS: VANCOMYCIN 1,500 MG/NS 500 ML IV SCH ×2 (03:03)
[2016-12-22] MEDS: RESP: ALBUTEROL 2.5 MG/IPRATROPIUM 0.5 MG NEB (SCH) NEB ×4 (04:53→21:32)
[2016-12-22] MEDS: ISOSORBIDE MONONITRATE 60 MG TAB PO SCH (05:13)
[2016-12-22] MEDS: methylPREDNISolone SOD SUCC 40 MG/1 ML VIAL IV PUSH SCH ×3 (05:14→22:00)
[2016-12-22] MEDS: CEFEPIME INJ 2,000 MG in SODIUM CHLORIDE 0.9% INJ 100 ML IV SCH ×2 (05:40→17:41)
[2016-12-22 07:47] LABS: CHLORIDE 99 MEQ/L (98-107); POTASSIUM 3.4 MEQ/L (3.5-5.1); SODIUM (NA) 133 MEQ/L (136-145)
[2016-12-22 07:49] LABS: BASOPHIL % 0.1 % (0.0-2.0); EOSINOPHIL % 0.2 % (0.0-4.0); HEMATOCRIT 45.1 % (39.0-51.0); LYMPH % 8.1 % (9.0-44.0); LYMPHOCYTE # 0.8 TH/MM3 (1.0-4.8); MEAN CELL VOLUME 89.5 FL (80.0-100.0); MEAN CORPUSCULAR HEMOGLOBIN 29.6 PG (27.0-34.0); MEAN CORPUSCULAR HGB CONC 33.1 % (32.0-36.0); MONO % 6.4 % (0.0-8.0); NEUT % 85.2 % (16.0-70.0); PLATELET COUNT 146 TH/MM3 (150-450); RED BLOOD COUNT 5.04 MIL/MM3 (4.50-5.90); RED CELL DISTRIBUTION WIDTH 13.9 % (11.6-17.2); WHITE BLOOD COUNT 9.4 TH/MM3 (4.0-11.0)
[2016-12-22 07:52] LABS: HEMO FLAGS DIFF FINAL
[2016-12-22 07:53] LABS: ANION GAP 11 MEQ/L (5-15); BICARBONATE 23.2 MEQ/L (21.0-32.0); BLOOD UREA NITROGEN 9 MG/DL (7-18); MAGNESIUM 1.8 MG/DL (1.5-2.5)
[2016-12-22 07:55] LABS: ALT (GPT) 30 U/L (12-78)
[2016-12-22 07:56] LABS: AST (GOT) 37 U/L (15-37); GLOMERULAR FILTRATION RATE 121 ML/MIN (>89)
[2016-12-22 07:57] LABS: TOTAL BILIRUBIN ADULT 1.2 MG/DL (0.2-1.0)
[2016-12-22 07:59] LABS: ALKALINE PHOSPHATASE 60 U/L (45-117)
[2016-12-22] MEDS: ASPIRIN EC 81 MG TABEC PO SCH (08:59)
[2016-12-22] MEDS: HEPARIN SODIUM - SQ 10,000 UNITS/ML VIAL SQ SCH ×2 (08:59→20:19)
[2016-12-22] MEDS: ACETAMINOPHEN/HYDROcodone 325 MG/5 MG TAB PO PRN ×2 (09:00→17:42)
[2016-12-22] MEDS: FINASTERIDE 5 MG TAB PO SCH (09:00)
[2016-12-22] MEDS: SODIUM CHLORIDE 0.9% FLUSH 10 ML FLUSH IV FLUSH SCH ×2 (09:00→20:20)
[2016-12-22] MEDS: LOSARTAN 50 MG TAB PO SCH (09:00)
[2016-12-22] MEDS: ATENOLOL 50 MG TAB PO SCH ×2 (09:01→20:20)
[2016-12-22] MEDS: AZITHROMYCIN 250 MG TAB PO SCH (09:01)
[2016-12-22] MEDS: CLOPIDOGREL 75 MG TAB PO SCH (09:01)
--- NOTE | 2016-12-22 09:41 | HHI.PR ---
Subjective History of Present Illness Patient feel weak and tired still SOB but better Low Potassium will replace and monitor...no acute issue. Review of Systems Constitutional Constitutional: Fatigue, Weakness Pulmonary Respiratory: Coughing, Shortness of Breath Vitals/Results Intake & Output 12/21/16 12/21/16 12/22/16 15:00 23:00 07:00 Intake Total 650 ml 1239 ml 1890 ml Output Total 625 ml 1700 ml 1300 ml Balance 25 ml -461 ml 590 ml Intake Oral 650 ml 490 ml IV Total 1239 ml 1400 ml Output Urine Total 625 ml 1700 ml 1300 ml # Bowel Movements 0 Vital Signs Vital Signs Date Time Temp Pulse Resp B/P Pulse Ox O2 Delivery O2 Flow Rate FiO2 12/22/16 07:52 92 Nasal Cannula 3.00 12/22/16 00:00 96.8 80 18 140/78 96 12/21/16 22:30 96 Nasal Cannula 2.00 12/21/16 20:00 96.9 76 18 138/76 96 12/21/16 16:16 92 Nasal Cannula 2.00 12/21/16 16:00 97.4 88 20 150/72 93 12/21/16 12:00 97.2 80 20 146/77 95 12/21/16 10:50 95 Nasal Cannula 2.00 12/21/16 09:45 93 CBC/BMP: 12/22/16 0657 12/22/16 0657 Lab Results Laboratory Tests Test 12/22/16 06:57 White Blood Count 9.4 TH/MM3 Red Blood Count 5.04 MIL/MM3 Hemoglobin 14.9 GM/DL Hematocrit 45.1 % Mean Corpuscular Volume 89.5 FL Mean Corpuscular Hemoglobin 29.6 PG Mean Corpuscular Hemoglobin 33.1 % Concent Red Cell Distribution Width 13.9 % Platelet Count 146 TH/MM3 Mean Platelet Volume 8.3 FL Neutrophils (%) (Auto) 85.2 % Lymphocytes (%) (Auto) 8.1 % Monocytes (%) (Auto) 6.4 % Eosinophils (%) (Auto) 0.2 % Basophils (%) (Auto) 0.1 % Neutrophils # (Auto) 8.0 TH/MM3 Lymphocytes # (Auto) 0.8 TH/MM3 Monocytes # (Auto) 0.6 TH/MM3 Eosinophils # (Auto) 0.0 TH/MM3 Basophils # (Auto) 0.0 TH/MM3 CBC Comment DIFF FINAL Differential Comment Sodium Level 133 MEQ/L Potassium Level 3.4 MEQ/L Chloride Level 99 MEQ/L Carbon Dioxide Level 23.2 MEQ/L Anion Gap 11 MEQ/L Blood Urea Nitrogen 9 MG/DL Creatinine 0.63 MG/DL Estimat Glomerular Filtration 121 ML/MIN Rate Random Glucose 147 MG/DL Calcium Level 8.3 MG/DL Magnesium Level 1.8 MG/DL Total Bilirubin 1.2 MG/DL Aspartate Amino Transf 37 U/L (AST/SGOT) Alanine Aminotransferase 30 U/L (ALT/SGPT) Alkaline Phosphatase 60 U/L Total Protein 6.5 GM/DL Albumin 3.1 GM/DL Physical Exam General General Appearance: No Acute Distress, Comfortable Eyes Eye Exam: Pupils Equal, Pupils Reactive, Sclera White, Extraocular Movement Intact Throat Throat Exam: Oral Mucosa [place] & Moist, Oral Pharynx Normal Neck Neck Exam: Neck Supple, Trachea Midline Pulmonary Resp Exam: Decreased Bases, Diminished Breath Sounds Resp Remarks bilateral wheezing and crackles. Cardiology CV Exam: Regular, Normal Sinus Rhythm Integumentary Skin Exam: Clear, Warm, Dry, Intact Extremeties Extremities Exam: No Edema Neurologic Neuro Exam: Alert, Awake, Oriented, Speech Clear, Moving All Extremities, No Focal Deficits Psychiatric Psych Exam: Appropriate Responses VTE Prophylaxis VTE Prophylaxis Meds: Heparin PUD Prophylasis PUD Prophylaxis: Protonix Assessment/Plan Assessment/Plan ASSESSMENT AND PLAN 1. This is an 86-year-old male, diagnosed with generalized weakness and cough and a fever secondary to bilateral pneumonia. The patient is on vancomycin and cefepime. on duoneb neublization. Pulmonary input noted for further recommendation.Zithromas and on solumedrol 2. hyponatremia will be monitored. 3. Hypokalemia. will replace and monitor and checked magnesium level. will replace and monitor. 4. History of coronary artery disease. Continue home medications. 5. History of hypertension. Continue home medications. will monitor blood pressure. 6. GERD. on Protonix 40 mg p.o. daily. 7. DVT prophylaxis. Heparin 5000 units subcutaneous q. 12-hours. 8. GI prophylaxis. Protonix 40 mg p.o. daily. 9. We are going to manage the patient on a daily basis and make recommendations on a daily basis Discussed Condition with: Patient Jarad Bedoya MD Dec 22, 2016 09:41
[2016-12-22] MEDS ORDERED: POTASSIUM CHLORIDE 20 MEQ CONTROLLED RELEASE TAB PO ONE (09:45)
[2016-12-22] MEDS: MAGNESIUM SULFATE 1 GM PREMIX 100 ML IV SCH ×2 (11:00→13:47)
[2016-12-22] MEDS: guaiFENesin/CODEINE SYRUP 200 MG/20 MG/10 ML CUP PO PRN (13:48)
--- NOTE | 2016-12-22 15:16 | HHI.PR ---
Subjective Remarks Still Has a Cough.On 3 L O2 . On antibiotics . Vanco,Cefipime Zithro Objective Vital Signs Date Time Temp Pulse Resp B/P Pulse Ox O2 Delivery O2 Flow Rate FiO2 12/22/16 12:00 95.7 75 20 119/70 94 12/22/16 10:00 20 12/22/16 08:00 96.4 99 20 128/75 93 12/22/16 07:52 92 Nasal Cannula 3.00 12/22/16 00:00 96.8 80 18 140/78 96 12/21/16 22:30 96 Nasal Cannula 2.00 12/21/16 20:00 96.9 76 18 138/76 96 12/21/16 16:16 92 Nasal Cannula 2.00 12/21/16 16:00 97.4 88 20 150/72 93 I/O 12/21/16 12/21/16 12/21/16 12/22/16 12/22/16 12/22/16 07:00 15:00 23:00 07:00 15:00 23:00 Intake Total 150 ml 650 ml 1239 ml 1890 ml Output Total 800 ml 625 ml 1700 ml 1300 ml Balance -650 ml 25 ml -461 ml 590 ml Intake Oral 150 ml 650 ml 490 ml IV Total 1239 ml 1400 ml Output Urine Total 800 ml 625 ml 1700 ml 1300 ml # Bowel Movements 0 Result Diagram: 12/22/1657 12/22/16 0657 Objective Remarks ENERAL: This is an averagely built elderly man who is pale and in no acute distress. HEENT: Head normocephalic. Pupils are reactive and equal. Tongue is moist. Throat is mildly injected. Nasal mucosa clear NECK: No bruits or thyroid enlargement or lymphadenopathy. Trachea midline. CHEST: Distant breath sounds with crackles at both lung bases with wheezes bilaterally, prolonged expirations. CARDIAC: Heart sounds are irregular S1-S2. No murmur. No S3. ABDOMEN: Soft, protuberant. No masses, no organomegaly or tenderness. Bowel sounds are active. EXTREMITIES: Mild edema with decreased peripheral pulses. NEUROLOGIC: Reflexes are 1+ with no gross motor deficits. RECTAL: Exam is deferred. SKIN: No lesions. Assessment and Plan Assessment and Plan IMPRESSION 1. Bibasilar pulmonary infiltrates with atelectasis and possible basilar pneumonia. 2. History of coronary artery disease status post CABG 3. Hyperkalemia 4. Hypertension 5. 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 Gastroesophageal reflux. Plan : 1. Continue antibiotics and D/C Vanco 2. o2 at 3 L. 3. Solumedrol 40 mg IV q12h. 4. Arrange home O2 5. Cont Duonebs qid 6. Will add Cough med PRN. Anusha Rosales MD Dec 22, 2016 15:16
--- NOTE | 2016-12-22 16:04 | RADRPT ---
EXAM DATE/TIME: 12/22/2016 15:47 [facility] COMPARISON: CT THORAX W/O CONTRAST, December 20, 2016, 21:15. CHEST SINGLE AP, December 19, 2016, 19:10. INDICATIONS : Infiltrate. Short of breath. MEDICAL HISTORY : Cardiovascular disease. SURGICAL HISTORY : CABG. ENCOUNTER: Subsequent ACUITY: 4 - 6 days PAIN SCORE: 0/10 LOCATION: Bilateral chest FINDINGS: Median sternotomy wires are noted status post cardiac surgery. The heart is mildly enlarged. Diffus e infiltrates are noted consistent with moderate pulmonary edema versus pneumonia. Clinical correlat ion is recommended. Underlying interstitial fibrosis and bibasilar bronchiectasis are again noted an d stable. CONCLUSION: 1. Diffuse infiltrates are noted consistent with moderate pulmonary edema versus pneumonia. Clinica l correlation is recommended. 2. Cardiomegaly. 3. Underlying interstitial fibrosis and bibasilar bronchiectasis is stable. Kavin Woo MD on December 22, 2016 at 15:55 Board Certified Radiologist. This report was verified electronically.
[2016-12-22] MEDS: ATORVASTATIN 40 MG TAB PO SCH (20:20)
[2016-12-22] MEDS ORDERED: PHARMACY ORDERED LAB ONE (20:45)
[2016-12-23] VITALS (8 sets, daily range): BP systolic 120–145; BP diastolic 75–79; PULSE 68–90; RESP 18–20; TEMP 96.7–97.8; O2SAT 85–95
[2016-12-23] MEDS: RESP: ALBUTEROL 2.5 MG/IPRATROPIUM 0.5 MG NEB (SCH) NEB ×5 (03:40→23:50)
[2016-12-23] MEDS: guaiFENesin/CODEINE SYRUP 200 MG/20 MG/10 ML CUP PO PRN ×2 (04:25→22:17)
[2016-12-23] MEDS: ACETAMINOPHEN/HYDROcodone 325 MG/5 MG TAB PO PRN (04:25)
[2016-12-23] MEDS: SODIUM CHLOR 0.9% 1000 ML INJ 1,000 ML IV SCH (04:58)
[2016-12-23] MEDS: methylPREDNISolone SOD SUCC 40 MG/1 ML VIAL IV PUSH SCH ×2 (06:00→13:43)
[2016-12-23] MEDS: CEFEPIME INJ 2,000 MG in SODIUM CHLORIDE 0.9% INJ 100 ML IV SCH ×2 (06:00→17:08)
[2016-12-23] MEDS: ATENOLOL 50 MG TAB PO SCH ×2 (08:07→22:08)
[2016-12-23] MEDS: LOSARTAN 50 MG TAB PO SCH (08:07)
[2016-12-23] MEDS: ISOSORBIDE MONONITRATE 60 MG TAB PO SCH (08:07)
[2016-12-23] MEDS: CLOPIDOGREL 75 MG TAB PO SCH (08:08)
[2016-12-23] MEDS: FINASTERIDE 5 MG TAB PO SCH (08:08)
[2016-12-23] MEDS: ASPIRIN EC 81 MG TABEC PO SCH (08:08)
[2016-12-23] MEDS: HEPARIN SODIUM - SQ 10,000 UNITS/ML VIAL SQ SCH ×2 (08:09→22:08)
[2016-12-23] MEDS: SODIUM CHLORIDE 0.9% FLUSH 10 ML FLUSH IV FLUSH SCH ×2 (08:09→22:07)
[2016-12-23 08:17] LABS: AUTOMATED NEUTROPHIL # 11.4 TH/MM3 (1.8-7.7); EOSINOPHIL # 0.1 TH/MM3 (0-0.4); EOSINOPHIL % 0.8 % (0.0-4.0); HEMATOCRIT 38.6 % (39.0-51.0); LYMPH % 5.6 % (9.0-44.0); LYMPHOCYTE # 0.7 TH/MM3 (1.0-4.8); MEAN CELL VOLUME 88.4 FL (80.0-100.0); MEAN CORPUSCULAR HEMOGLOBIN 30.2 PG (27.0-34.0); MEAN CORPUSCULAR HGB CONC 34.2 % (32.0-36.0); MONO % 4.5 % (0.0-8.0); NEUT % 89.1 % (16.0-70.0); PLATELET COUNT 153 TH/MM3 (150-450); RED BLOOD COUNT 4.37 MIL/MM3 (4.50-5.90); RED CELL DISTRIBUTION WIDTH 13.8 % (11.6-17.2); WHITE BLOOD COUNT 12.8 TH/MM3 (4.0-11.0)
[2016-12-23 08:22] LABS: HEMO FLAGS DIFF FINAL
[2016-12-23 08:23] LABS: CHLORIDE 100 MEQ/L (98-107); SODIUM (NA) 133 MEQ/L (136-145)
[2016-12-23 08:30] LABS: ANION GAP 8 MEQ/L (5-15); BICARBONATE 24.7 MEQ/L (21.0-32.0); BLOOD UREA NITROGEN 11 MG/DL (7-18); MAGNESIUM 2.1 MG/DL (1.5-2.5)
[2016-12-23 08:32] LABS: ALT (GPT) 37 U/L (12-78); AST (GOT) 66 U/L (15-37)
[2016-12-23 08:33] LABS: GLOMERULAR FILTRATION RATE 124 ML/MIN (>89)
[2016-12-23 08:34] LABS: TOTAL BILIRUBIN ADULT 1.3 MG/DL (0.2-1.0)
[2016-12-23 08:35] LABS: ALKALINE PHOSPHATASE 57 U/L (45-117)
--- NOTE | 2016-12-23 09:22 | HHI.PR ---
Subjective History of Present Illness Patient feel better SOB better Low Potassium will replace and monitor...no acute issue. d/w TA[place]NA Leyva discontinue IV Fluid. Review of Systems Constitutional Constitutional: Fatigue, Weakness Pulmonary Respiratory: Coughing, Shortness of Breath Vitals/Results Intake & Output 12/22/16 12/22/16 12/23/16 15:00 23:00 07:00 Intake Total 1720 ml 1580 ml Output Total 680 ml 550 ml 300 ml Balance 1040 ml -550 ml 1280 ml Intake Oral 520 ml IV Total 1200 ml 1580 ml Output Urine Total 680 ml 550 ml 300 ml # Bowel Movements 0 0 Vital Signs Vital Signs Date Time Temp Pulse Resp B/P Pulse Ox O2 Delivery O2 Flow Rate FiO2 12/23/16 07:57 96.7 68 20 142/75 95 12/23/16 04:00 12/23/16 00:00 97.1 76 20 127/76 92 12/22/16 21:46 93 Nasal Cannula 4.00 12/22/16 20:21 97.4 77 18 128/79 92 12/22/16 16:00 96.2 73 20 127/75 93 12/22/16 12:00 95.7 75 20 119/70 94 12/22/16 10:00 20 CBC/BMP: 12/23/16 0705 12/23/16 0705 Lab Results Laboratory Tests Test 12/23/16 07:05 White Blood Count 12.8 TH/MM3 Red Blood Count 4.37 MIL/MM3 Hemoglobin 13.2 GM/DL Hematocrit 38.6 % Mean Corpuscular Volume 88.4 FL Mean Corpuscular Hemoglobin 30.2 PG Mean Corpuscular Hemoglobin 34.2 % Concent Red Cell Distribution Width 13.8 % Platelet Count 153 TH/MM3 Mean Platelet Volume 8.4 FL Neutrophils (%) (Auto) 89.1 % Lymphocytes (%) (Auto) 5.6 % Monocytes (%) (Auto) 4.5 % Eosinophils (%) (Auto) 0.8 % Basophils (%) (Auto) 0.0 % Neutrophils # (Auto) 11.4 TH/MM3 Lymphocytes # (Auto) 0.7 TH/MM3 Monocytes # (Auto) 0.6 TH/MM3 Eosinophils # (Auto) 0.1 TH/MM3 Basophils # (Auto) 0.0 TH/MM3 CBC Comment DIFF FINAL Differential Comment Sodium Level 133 MEQ/L Potassium Level 4.0 MEQ/L Chloride Level 100 MEQ/L Carbon Dioxide Level 24.7 MEQ/L Anion Gap 8 MEQ/L Blood Urea Nitrogen 11 MG/DL Creatinine 0.62 MG/DL Estimat Glomerular Filtration 124 ML/MIN Rate Random Glucose 137 MG/DL Calcium Level 8.3 MG/DL Magnesium Level 2.1 MG/DL Total Bilirubin 1.3 MG/DL Aspartate Amino Transf 66 U/L (AST/SGOT) Alanine Aminotransferase 37 U/L (ALT/SGPT) Alkaline Phosphatase 57 U/L Total Protein 5.9 GM/DL Albumin 2.9 GM/DL Physical Exam General General Appearance: Well Developed, Well Nourished, No Acute Distress, Comfortable Eyes Eye Exam: Pupils Equal, Pupils Reactive, Sclera White, Extraocular Movement Intact Throat Throat Exam: Oral Mucosa [place] & Moist, Oral Pharynx Normal Neck Neck Exam: Neck Supple, Trachea Midline Pulmonary Resp Exam: Decreased Bases, Diminished Breath Sounds Resp Remarks bilateral wheezing and crackles. Cardiology CV Exam: Regular, Normal Sinus Rhythm Integumentary Skin Exam: Clear, Warm, Dry, Intact Extremeties Extremities Exam: No Edema Neurologic Neuro Exam: Alert, Awake, Oriented, Speech Clear, Moving All Extremities, No Focal Deficits Psychiatric Psych Exam: Appropriate Responses VTE Prophylaxis VTE Prophylaxis Meds: Heparin PUD Prophylasis PUD Prophylaxis: Protonix Assessment/Plan Assessment/Plan ASSESSMENT AND PLAN 1. This is an 86-year-old male, diagnosed with generalized weakness and cough and a fever secondary to bilateral pneumonia. The patient is on vancomycin and cefepime. on duoneb neublization. Pulmonary input noted for further recommendation. on solumedrol 2. hyponatremia will be monitored. 3. Hypokalemia / Hypomagnesium resolved. 4. History of coronary artery disease. Continue home medications. 5. History of hypertension. Continue home medications. will monitor blood pressure. 6. GERD. on Protonix 40 mg p.o. daily. 7. DVT prophylaxis. Heparin 5000 units subcutaneous q. 12-hours. 8. GI prophylaxis. Protonix 40 mg p.o. daily. 9. We are going to manage the patient on a daily basis and make recommendations on a daily basis Discussed Condition with: Patient Jarad Bedoya MD Dec 23, 2016 09:22
[2016-12-23] MEDS ORDERED: FUROSEMIDE 40 MG/4 ML VIAL IV PUSH ONE (17:00)
--- NOTE | 2016-12-23 18:32 | HHI.PR ---
Subjective Remarks Still Has a Cough.On 3 L O2 . On antibiotics .,Cefipime Zithro. Objective Vital Signs Date Time Temp Pulse Resp B/P Pulse Ox O2 Delivery O2 Flow Rate FiO2 12/23/16 16:00 96.9 83 20 145/79 85 12/23/16 12:00 96.8 75 20 120/76 92 12/23/16 09:43 92 Nasal Cannula 4.00 12/23/16 07:57 96.7 68 20 142/75 95 12/23/16 04:00 12/23/16 00:00 97.1 76 20 127/76 92 12/22/16 21:46 93 Nasal Cannula 4.00 12/22/16 20:21 97.4 77 18 128/79 92 I/O 12/22/16 12/22/16 12/22/16 12/23/16 12/23/16 12/23/16 07:00 15:00 23:00 07:00 15:00 23:00 Intake Total 1890 ml 1720 ml 1580 ml 1110 ml Output Total 1300 ml 680 ml 550 ml 300 ml 850 ml Balance 590 ml 1040 ml -550 ml 1280 ml 260 ml Intake Oral 490 ml 520 ml 1110 ml IV Total 1400 ml 1200 ml 1580 ml Output Urine Total 1300 ml 680 ml 550 ml 300 ml 850 ml # Bowel Movements 0 0 Result Diagram: 12/23/1670412/23/16 07 Objective Remarks GENERAL: This is an averagely built elderly man who is pale and in no acute distress. HEENT: Head normocephalic. Pupils are reactive and equal. Tongue is moist. Throat is mildly injected. Nasal mucosa clear NECK: No bruits or thyroid enlargement or lymphadenopathy. Trachea midline. CHEST: Distant breath sounds with crackles at both lung bases with wheezes bilaterally. CARDIAC: Heart sounds are irregular S1-S2. No murmur. No S3. ABDOMEN: Soft, protuberant. No masses, no organomegaly or tenderness. Bowel sounds are active. EXTREMITIES: Mild edema with decreased peripheral pulses. NEUROLOGIC: Reflexes are 1+ with no gross motor deficits. RECTAL: Exam is deferred. SKIN: No lesions. Assessment and Plan Assessment and Plan IMPRESSION 1. Bibasilar pulmonary infiltrates with atelectasis and possible basilar pneumonia. 2. History of coronary artery disease status post CABG 3. Hyperkalemia 4. Hypertension 5. 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 Gastroesophageal reflux. Plan : 1. Continue antibiotics and switch to PO ceftin 2. o2 at 3 L. 3. D/C Solumedrol and add prednisone 20 mg BID and taper in 3 weeks 4. Arrange home O2 5. Cont Duonebs qid 6. Will add Cough med PRN. Anusha Rosales MD Dec 23, 2016 18:32
[2016-12-23] MEDS: ATORVASTATIN 40 MG TAB PO SCH (22:08)
[2016-12-23] MEDS: predniSONE 20 MG TAB PO SCH (22:08)
[2016-12-24] VITALS (8 sets, daily range): BP systolic 116–135; BP diastolic 69–79; PULSE 71–92; RESP 17–18; TEMP 96.6–97.7; O2SAT 92–98
[2016-12-24] MEDS: RESP: ALBUTEROL 2.5 MG/IPRATROPIUM 0.5 MG NEB (SCH) NEB ×6 (04:55→23:35)
[2016-12-24 06:24] LABS: AUTOMATED NEUTROPHIL # 9.6 TH/MM3 (1.8-7.7); HEMATOCRIT 38.5 % (39.0-51.0); LYMPH % 6.7 % (9.0-44.0); LYMPHOCYTE # 0.7 TH/MM3 (1.0-4.8); MEAN CELL VOLUME 87.1 FL (80.0-100.0); MEAN CORPUSCULAR HEMOGLOBIN 29.8 PG (27.0-34.0); MEAN CORPUSCULAR HGB CONC 34.2 % (32.0-36.0); MONO % 7.1 % (0.0-8.0); NEUT % 86.2 % (16.0-70.0); PLATELET COUNT 147 TH/MM3 (150-450); RED BLOOD COUNT 4.42 MIL/MM3 (4.50-5.90); RED CELL DISTRIBUTION WIDTH 13.7 % (11.6-17.2); WHITE BLOOD COUNT 11.1 TH/MM3 (4.0-11.0)
--- NOTE | 2016-12-24 06:26 | RADRPT ---
EXAM DATE/TIME: 12/24/2016 06:15 [facility] COMPARISON: CHEST SINGLE AP, December 22, 2016, 15:47. INDICATIONS : Follow up edema. MEDICAL HISTORY : Cardiovascular disease. SURGICAL HISTORY : CABG. ENCOUNTER: Subsequent ACUITY: 3 days PAIN SCORE: 5/10 LOCATION: Bilateral chest FINDINGS: A single AP erect portable view of the chest was obtained and again demonstrates the patient is statu s post median sternotomy. There is elevation the right hemidiaphragm. There's been an interval increa se in the bilateral infiltrate with increasing consolidation in both lungs. This is greatest in the p erihilar regions. The heart size appears at the upper limits of normal. There is no definite pleural effusion. The bony thorax is otherwise intact. There is mild gaseous distention in the hepatic flexur e region. CONCLUSION: 1. Increasing pulmonary infiltrates and consolidation. 2. Stable elevation of the right hemidiaphragm. 3. Gaseous distention again noted in the hepatic flexure. Jonah Barrera MD on December 24, 2016 at 6:22 Board Certified Radiologist. This report was verified electronically.
[2016-12-24 06:35] LABS: CHLORIDE 97 MEQ/L (98-107); HEMO FLAGS DIFF FINAL; POTASSIUM 3.4 MEQ/L (3.5-5.1); SODIUM (NA) 133 MEQ/L (136-145)
[2016-12-24 06:38] LABS: ANION GAP 8 MEQ/L (5-15); BICARBONATE 28.1 MEQ/L (21.0-32.0); BLOOD UREA NITROGEN 10 MG/DL (7-18)
[2016-12-24] MEDS: CEFEPIME INJ 2,000 MG in SODIUM CHLORIDE 0.9% INJ 100 ML IV SCH ×2 (06:39→18:01)
[2016-12-24] MEDS: SODIUM CHLORIDE 0.9% FLUSH 10 ML FLUSH IV FLUSH PRN (06:40)
[2016-12-24] MEDS: ISOSORBIDE MONONITRATE 60 MG TAB PO SCH (06:40)
[2016-12-24 06:41] LABS: ALT (GPT) 49 U/L (12-78); AST (GOT) 62 U/L (15-37); GLOMERULAR FILTRATION RATE 126 ML/MIN (>89)
[2016-12-24 06:43] LABS: TOTAL BILIRUBIN ADULT 1.4 MG/DL (0.2-1.0)
[2016-12-24 06:44] LABS: ALKALINE PHOSPHATASE 60 U/L (45-117)
[2016-12-24] MEDS: guaiFENesin/CODEINE SYRUP 200 MG/20 MG/10 ML CUP PO PRN (08:02)
[2016-12-24] MEDS: ASPIRIN EC 81 MG TABEC PO SCH (08:03)
[2016-12-24] MEDS: CLOPIDOGREL 75 MG TAB PO SCH (08:03)
[2016-12-24] MEDS: ATENOLOL 50 MG TAB PO SCH ×2 (08:03→20:10)
[2016-12-24] MEDS: FINASTERIDE 5 MG TAB PO SCH (08:03)
[2016-12-24] MEDS: FUROSEMIDE 40 MG TAB PO SCH (08:03)
[2016-12-24] MEDS: SODIUM CHLORIDE 0.9% FLUSH 10 ML FLUSH IV FLUSH SCH ×2 (08:04→20:16)
[2016-12-24] MEDS: LOSARTAN 50 MG TAB PO SCH (08:04)
[2016-12-24] MEDS: HEPARIN SODIUM - SQ 10,000 UNITS/ML VIAL SQ SCH ×2 (08:04→20:10)
[2016-12-24] MEDS: predniSONE 20 MG TAB PO SCH ×2 (08:04→20:10)
--- NOTE | 2016-12-24 08:42 | HHI.PR ---
Subjective History of Present Illness Patient feel better SOB better Low Potassium will replace and monitor...no acute issue. have SOB Get better with IV Lasix check 2 D Echo. chest x- ray shows worsening of infiltrate. Review of Systems Constitutional Constitutional: Fatigue, Weakness Pulmonary Respiratory: Coughing, Shortness of Breath Vitals/Results Intake & Output 12/23/16 12/23/16 12/24/16 14:59 22:59 06:59 Intake Total 1110 ml 130 ml Output Total 850 ml 1200 ml 600 ml Balance 260 ml -1200 ml -470 ml Intake Oral 1110 ml IV Total 130 ml Output Urine Total 850 ml 1200 ml 600 ml Vital Signs Vital Signs Date Time Temp Pulse Resp B/P Pulse Ox O2 Delivery O2 Flow Rate FiO2 12/24/16 08:00 96.8 78 18 135/75 92 12/24/16 08:00 92 Nasal Cannula 5.00 12/24/16 07:52 93 Nasal Cannula 6.00 12/24/16 05:06 96 Nasal Cannula 5.00 12/24/16 04:00 12/23/16 23:05 97.2 88 20 133/76 92 12/23/16 21:17 97.8 90 18 125/76 92 12/23/16 20:00 99 Nasal Cannula 6.00 12/23/16 19:13 93 Nasal Cannula 6.00 12/23/16 16:00 96.9 83 20 145/79 85 12/23/16 12:00 96.8 75 20 120/76 92 12/23/16 09:43 92 Nasal Cannula 4.00 CBC/BMP: 12/24/16 0510 12/24/16 0510 Lab Results Laboratory Tests Test 12/24/16 05:10 White Blood Count 11.1 TH/MM3 Red Blood Count 4.42 MIL/MM3 Hemoglobin 13.2 GM/DL Hematocrit 38.5 % Mean Corpuscular Volume 87.1 FL Mean Corpuscular Hemoglobin 29.8 PG Mean Corpuscular Hemoglobin 34.2 % Concent Red Cell Distribution Width 13.7 % Platelet Count 147 TH/MM3 Mean Platelet Volume 8.3 FL Neutrophils (%) (Auto) 86.2 % Lymphocytes (%) (Auto) 6.7 % Monocytes (%) (Auto) 7.1 % Eosinophils (%) (Auto) 0.0 % Basophils (%) (Auto) 0.0 % Neutrophils # (Auto) 9.6 TH/MM3 Lymphocytes # (Auto) 0.7 TH/MM3 Monocytes # (Auto) 0.8 TH/MM3 Eosinophils # (Auto) 0.0 TH/MM3 Basophils # (Auto) 0.0 TH/MM3 CBC Comment DIFF FINAL Differential Comment Sodium Level 133 MEQ/L Potassium Level 3.4 MEQ/L Chloride Level 97 MEQ/L Carbon Dioxide Level 28.1 MEQ/L Anion Gap 8 MEQ/L Blood Urea Nitrogen 10 MG/DL Creatinine 0.61 MG/DL Estimat Glomerular Filtration 126 ML/MIN Rate Random Glucose 120 MG/DL Calcium Level 8.2 MG/DL Total Bilirubin 1.4 MG/DL Aspartate Amino Transf 62 U/L (AST/SGOT) Alanine Aminotransferase 49 U/L (ALT/SGPT) Alkaline Phosphatase 60 U/L Total Protein 5.9 GM/DL Albumin 2.9 GM/DL Physical Exam General General Appearance: Well Developed, Well Nourished, No Acute Distress, Comfortable Eyes Eye Exam: Pupils Equal, Pupils Reactive, Sclera White, Extraocular Movement Intact Throat Throat Exam: Oral Mucosa [place] & Moist, Oral Pharynx Normal Neck Neck Exam: Neck Supple, Trachea Midline Pulmonary Resp Exam: Decreased Bases, Diminished Breath Sounds Resp Remarks bilateral wheezing and crackles. Cardiology CV Exam: Regular, Normal Sinus Rhythm Integumentary Skin Exam: Clear, Warm, Dry, Intact Extremeties Extremities Exam: No Edema Neurologic Neuro Exam: Alert, Awake, Oriented, Speech Clear, Moving All Extremities, No Focal Deficits Psychiatric Psych Exam: Appropriate Responses VTE Prophylaxis VTE Prophylaxis Meds: Heparin PUD Prophylasis PUD Prophylaxis: Protonix Assessment/Plan Assessment/Plan ASSESSMENT AND PLAN 1. This is an 86-year-old male, diagnosed with generalized weakness and cough and a fever secondary to bilateral pneumonia. The patient is on vancomycin and cefepime. on duoneb neublization. Pulmonary input noted for further recommendation. on solumedrol 2. hyponatremia will be monitored. 3. Hypokalemia will replace / Hypomagnesium resolved. 4. History of coronary artery disease. Continue home medications. 5. History of hypertension. Continue home medications. will monitor blood pressure. 6. GERD. on Protonix 40 mg p.o. daily. 7. DVT prophylaxis. Heparin 5000 units subcutaneous q. 12-hours. 8. GI prophylaxis. Protonix 40 mg p.o. daily. 9. SOB Get better with IV Lasix check 2 D Echo. ? CHF. We are going to manage the patient on a daily basis and make recommendations on a daily basis Check CBC with diff CMP in AM. Discussed Condition with: Patient Jarad Bedoya MD Dec 24, 2016 08:42
[2016-12-24] MEDS ORDERED: POTASSIUM CHLORIDE 20 MEQ CONTROLLED RELEASE TAB PO ONE (08:45)
[2016-12-24] MEDS: ACETAMINOPHEN/HYDROcodone 325 MG/5 MG TAB PO PRN (10:46)
[2016-12-24] MEDS: ATORVASTATIN 40 MG TAB PO SCH (20:10)
[2016-12-24] MEDS: MAGNESIUM HYDROXIDE SUSP 30 ML CUP PO PRN (21:40)
[2016-12-25] VITALS (8 sets, daily range): BP systolic 135–152; BP diastolic 70–76; PULSE 75–88; RESP 16–20; TEMP 96.9–98.5; O2SAT 90–96
[2016-12-25] MEDS: RESP: ALBUTEROL 2.5 MG/IPRATROPIUM 0.5 MG NEB (SCH) NEB ×5 (03:42→19:54)
[2016-12-25] MEDS: CEFEPIME INJ 2,000 MG in SODIUM CHLORIDE 0.9% INJ 100 ML IV SCH ×2 (06:00→17:44)
[2016-12-25 06:34] LABS: AUTOMATED NEUTROPHIL # 10.6 TH/MM3 (1.8-7.7); BASOPHIL % 0.1 % (0.0-2.0); HEMATOCRIT 40.2 % (39.0-51.0); LYMPH % 6.1 % (9.0-44.0); LYMPHOCYTE # 0.8 TH/MM3 (1.0-4.8); MEAN CELL VOLUME 88.1 FL (80.0-100.0); MEAN CORPUSCULAR HEMOGLOBIN 29.9 PG (27.0-34.0); MEAN CORPUSCULAR HGB CONC 33.9 % (32.0-36.0); MONO % 8.4 % (0.0-8.0); NEUT % 85.4 % (16.0-70.0); PLATELET COUNT 181 TH/MM3 (150-450); RED BLOOD COUNT 4.56 MIL/MM3 (4.50-5.90); RED CELL DISTRIBUTION WIDTH 13.6 % (11.6-17.2); WHITE BLOOD COUNT 12.4 TH/MM3 (4.0-11.0)
[2016-12-25 06:42] LABS: CHLORIDE 95 MEQ/L (98-107); POTASSIUM 3.6 MEQ/L (3.5-5.1); SODIUM (NA) 131 MEQ/L (136-145)
[2016-12-25 06:54] LABS: AST (GOT) 59 U/L (15-37); BLOOD UREA NITROGEN 10 MG/DL (7-18); HEMO FLAGS DIFF FINAL
[2016-12-25 06:55] LABS: ALKALINE PHOSPHATASE 64 U/L (45-117); ALT (GPT) 59 U/L (12-78); ANION GAP 8 MEQ/L (5-15); BICARBONATE 28.3 MEQ/L (21.0-32.0); TOTAL BILIRUBIN ADULT 1.9 MG/DL (0.2-1.0)
[2016-12-25 06:56] LABS: GLOMERULAR FILTRATION RATE 131 ML/MIN (>89)
[2016-12-25] MEDS: SODIUM CHLORIDE 0.9% FLUSH 10 ML FLUSH IV FLUSH SCH ×2 (08:35→21:52)
--- NOTE | 2016-12-25 08:39 | HHI.PR ---
Subjective History of Present Illness Patient SOB better Low Potassium resolved....no acute issue. Review of Systems Constitutional Constitutional: Fatigue, Weakness Pulmonary Respiratory: Coughing, Shortness of Breath Vitals/Results Intake & Output 12/24/16 12/24/16 12/25/16 14:59 22:59 06:59 Intake Total 400 ml 560 ml Output Total 1400 ml 400 ml Balance -1400 ml 400 ml 160 ml Intake Oral 560 ml IV Total 400 ml Output Urine Total 1400 ml 400 ml # Bowel Movements 0 Vital Signs Vital Signs Date Time Temp Pulse Resp B/P Pulse Ox O2 Delivery O2 Flow Rate FiO2 12/25/16 08:00 97.9 87 18 152/74 92 12/25/16 00:00 98.5 88 16 135/70 92 12/24/16 23:35 94 Nasal Cannula 4.00 12/24/16 20:00 97.6 92 18 133/74 92 12/24/16 19:46 93 Nasal Cannula 4.00 12/24/16 19:24 Nasal Cannula 4.00 12/24/16 16:00 97.7 71 18 116/69 95 12/24/16 12:00 96.6 75 17 129/79 93 12/24/16 11:46 20 12/24/16 11:35 98 Nasal Cannula 6.00 CBC/BMP: 12/25/16 0550 12/25/16 0550 Lab Results Laboratory Tests Test 12/25/16 05:50 White Blood Count 12.4 TH/MM3 Red Blood Count 4.56 MIL/MM3 Hemoglobin 13.6 GM/DL Hematocrit 40.2 % Mean Corpuscular Volume 88.1 FL Mean Corpuscular Hemoglobin 29.9 PG Mean Corpuscular Hemoglobin 33.9 % Concent Red Cell Distribution Width 13.6 % Platelet Count 181 TH/MM3 Mean Platelet Volume 8.0 FL Neutrophils (%) (Auto) 85.4 % Lymphocytes (%) (Auto) 6.1 % Monocytes (%) (Auto) 8.4 % Eosinophils (%) (Auto) 0.0 % Basophils (%) (Auto) 0.1 % Neutrophils # (Auto) 10.6 TH/MM3 Lymphocytes # (Auto) 0.8 TH/MM3 Monocytes # (Auto) 1.0 TH/MM3 Eosinophils # (Auto) 0.0 TH/MM3 Basophils # (Auto) 0.0 TH/MM3 CBC Comment DIFF FINAL Differential Comment Sodium Level 131 MEQ/L Potassium Level 3.6 MEQ/L Chloride Level 95 MEQ/L Carbon Dioxide Level 28.3 MEQ/L Anion Gap 8 MEQ/L Blood Urea Nitrogen 10 MG/DL Creatinine 0.59 MG/DL Estimat Glomerular Filtration 131 ML/MIN Rate Random Glucose 123 MG/DL Calcium Level 8.4 MG/DL Total Bilirubin 1.9 MG/DL Aspartate Amino Transf 59 U/L (AST/SGOT) Alanine Aminotransferase 59 U/L (ALT/SGPT) Alkaline Phosphatase 64 U/L Total Protein 6.3 GM/DL Albumin 3.0 GM/DL Physical Exam General General Appearance: Well Developed, Well Nourished, No Acute Distress, Comfortable Eyes Eye Exam: Pupils Equal, Pupils Reactive, Sclera White, Extraocular Movement Intact Throat Throat Exam: Oral Mucosa [place] & Moist, Oral Pharynx Normal Neck Neck Exam: Neck Supple, Trachea Midline Pulmonary Resp Exam: Decreased Bases, Diminished Breath Sounds Resp Remarks bilateral wheezing and crackles. Cardiology CV Exam: Regular, Normal Sinus Rhythm Integumentary Skin Exam: Clear, Warm, Dry, Intact Extremeties Extremities Exam: No Edema Neurologic Neuro Exam: Alert, Awake, Oriented, Speech Clear, Moving All Extremities, No Focal Deficits Psychiatric Psych Exam: Appropriate Responses VTE Prophylaxis VTE Prophylaxis Meds: Heparin PUD Prophylasis PUD Prophylaxis: Protonix Assessment/Plan Assessment/Plan ASSESSMENT AND PLAN 1. This is an 86-year-old male, diagnosed with generalized weakness and cough and a fever secondary to bilateral pneumonia. The patient is on vancomycin and cefepime. on duoneb neublization. Pulmonary input noted for further recommendation. on prednisone 20 mg PO BID. 2. hyponatremia will be monitored. 3. Hypokalemia resolved. / Hypomagnesium resolved. 4. History of coronary artery disease. Continue home medications. 5. History of hypertension. Continue home medications. will monitor blood pressure. 6. GERD. on Protonix 40 mg p.o. daily. 7. DVT prophylaxis. Heparin 5000 units subcutaneous q. 12-hours. 8. GI prophylaxis. Protonix 40 mg p.o. daily. 9. SOB Get better with IV Lasix check 2 D Echo. ? CHF. We are going to manage the patient on a daily basis and make recommendations on a daily basis Check CBC with diff CMP in AM. Discussed Condition with: Patient Jarad Bedoya MD Dec 25, 2016 08:39 Jarad Bedoya MD Dec 25, 2016 08:39
[2016-12-25] MEDS: HEPARIN SODIUM - SQ 10,000 UNITS/ML VIAL SQ SCH ×2 (09:06→21:55)
[2016-12-25] MEDS: predniSONE 20 MG TAB PO SCH ×2 (09:06→21:51)
[2016-12-25] MEDS: FINASTERIDE 5 MG TAB PO SCH (09:06)
[2016-12-25] MEDS: LOSARTAN 50 MG TAB PO SCH (09:06)
[2016-12-25] MEDS: ISOSORBIDE MONONITRATE 60 MG TAB PO SCH (09:06)
[2016-12-25] MEDS: FUROSEMIDE 40 MG TAB PO SCH (09:06)
[2016-12-25] MEDS: ASPIRIN EC 81 MG TABEC PO SCH (09:06)
[2016-12-25] MEDS: ATENOLOL 50 MG TAB PO SCH ×2 (09:07→21:51)
[2016-12-25] MEDS: CLOPIDOGREL 75 MG TAB PO SCH (09:07)
--- NOTE | 2016-12-25 20:05 | HHI.PR ---
Subjective Remarks Less Cough.On 2 L O2 . On antibiotics .Has trouble walking Objective Vital Signs Date Time Temp Pulse Resp B/P Pulse Ox O2 Delivery O2 Flow Rate FiO2 12/25/16 16:00 97.5 75 17 152/75 96 12/25/16 15:01 Nasal Cannula 3.50 12/25/16 12:00 97.7 81 19 143/76 93 12/25/16 11:37 96 Nasal Cannula 3.50 12/25/16 08:00 97.9 87 18 152/74 92 12/25/16 07:28 94 Nasal Cannula 3.50 12/25/16 00:00 98.5 88 16 135/70 92 12/24/16 23:35 94 Nasal Cannula 4.00 I/O 12/24/16 12/24/16 12/24/16 12/25/16 12/25/16 12/25/16 07:00 15:00 23:00 07:00 15:00 23:00 Intake Total 130 ml 400 ml 560 ml Output Total 600 ml 1400 ml 400 ml 2004 ml 800 ml Balance -470 ml -1400 ml 400 ml 160 ml -2004 ml -800 ml Intake Oral 560 ml IV Total 130 ml 400 ml Output Urine Total 600 ml 1400 ml 400 ml 2004 ml 800 ml # Bowel Movements 0 Result Diagram: 12/25/16 0550 12/25/16 0550 Objective Remarks GENERAL: This is an averagely built elderly man who is in no acute distress. HEENT: Head normocephalic. Pupils are reactive and equal. Tongue is moist. Throat is mildly injected. Nasal mucosa clear NECK: No bruits or thyroid enlargement or lymphadenopathy. Trachea midline. CHEST: Distant breath sounds with crackles at both lung bases with wheezes bilaterally. CARDIAC: Heart sounds are irregular S1-S2. No murmur. No S3. ABDOMEN: Soft, protuberant. No masses, no organomegaly or tenderness. Bowel sounds are active. EXTREMITIES: Mild edema with decreased peripheral pulses. NEUROLOGIC: Reflexes are 1+ with no gross motor deficits. RECTAL: Exam is deferred. SKIN: No lesions. Assessment and Plan Assessment and Plan IMPRESSION 1. Bibasilar pulmonary infiltrates with atelectasis and possible basilar pneumonia. 2. History of coronary artery disease status post CABG 3. Hyperkalemia 4. Hypertension 5. 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 Gastroesophageal reflux. Plan : 1. Continue antibiotics PO ceftin 2. o2 at 3 L. 3. prednisone 20 mg BID and taper in 3 weeks 4. Arrange home O2 5. Cont Duonebs qid 6. Rpt CXR . 7. PT and rehab after discharge Anusha Rosales MD Dec 25, 2016 20:05
[2016-12-25] MEDS: ATORVASTATIN 40 MG TAB PO SCH (21:51)
[2016-12-25] MEDS: CEFUROXIME AXETIL 500 MG TAB PO SCH (21:54)
[2016-12-26] VITALS: BP 145/81; PULSE 77; RESP 20; TEMP 96.8; O2SAT 90
[2016-12-26] MEDS: RESP: ALBUTEROL 2.5 MG/IPRATROPIUM 0.5 MG NEB (SCH) NEB ×7 (00:23→23:58)
[2016-12-26] MEDS: ISOSORBIDE MONONITRATE 60 MG TAB PO SCH (05:59)
[2016-12-26 06:22] LABS: CHLORIDE 95 MEQ/L (98-107); POTASSIUM 3.9 MEQ/L (3.5-5.1); SODIUM (NA) 132 MEQ/L (136-145)
[2016-12-26 06:25] LABS: EOSINOPHIL % 0.1 % (0.0-4.0); LYMPH % 7.2 % (9.0-44.0); LYMPHOCYTE # 0.8 TH/MM3 (1.0-4.8); MEAN CELL VOLUME 87.3 FL (80.0-100.0); MEAN CORPUSCULAR HEMOGLOBIN 29.7 PG (27.0-34.0); MONO % 6.8 % (0.0-8.0); NEUT % 85.9 % (16.0-70.0); PLATELET COUNT 212 TH/MM3 (150-450); RED BLOOD COUNT 4.35 MIL/MM3 (4.50-5.90); RED CELL DISTRIBUTION WIDTH 13.7 % (11.6-17.2); WHITE BLOOD COUNT 11.6 TH/MM3 (4.0-11.0)
[2016-12-26 06:31] LABS: ANION GAP 8 MEQ/L (5-15); BICARBONATE 28.8 MEQ/L (21.0-32.0)
[2016-12-26 06:32] LABS: BLOOD UREA NITROGEN 9 MG/DL (7-18)
[2016-12-26 06:34] LABS: HEMO FLAGS DIFF FINAL
[2016-12-26 06:35] LABS: ALT (GPT) 55 U/L (12-78); AST (GOT) 48 U/L (15-37); GLOMERULAR FILTRATION RATE 148 ML/MIN (>89)
[2016-12-26 06:37] LABS: ALKALINE PHOSPHATASE 63 U/L (45-117)
[2016-12-26 08:00] VITALS: BP 130/77; PULSE 83; RESP 20; TEMP 96.7; O2SAT 96; O2SAT 98
--- NOTE | 2016-12-26 08:38 | HHI.PR ---
Subjective History of Present Illness Patient SOB better Low Potassium resolved....no acute issue. d/ w TAWANA Parham. Review of Systems Constitutional Constitutional: Fatigue, Weakness Pulmonary Respiratory: Coughing, Shortness of Breath Vitals/Results Intake & Output 12/25/16 12/25/16 12/26/16 15:00 23:00 07:00 Intake Total 240 ml 60 ml Output Total 2004 ml 1275 ml 670 ml Balance -2004 ml -1035 ml -610 ml Intake Oral 240 ml 60 ml Output Urine Total 2004 ml 1275 ml 670 ml # Voids 1 # Bowel Movements 0 0 Vital Signs Vital Signs Date Time Temp Pulse Resp B/P Pulse Ox O2 Delivery O2 Flow Rate FiO2 12/26/16 08:00 96.7 83 20 130/77 98 12/26/16 08:00 96 Nasal Cannula 2.00 12/26/16 04:50 2.00 12/26/16 00:00 96.8 77 20 145/81 90 12/25/16 20:00 96.9 80 20 141/75 90 12/25/16 20:00 Simple Mask 3.00 12/25/16 19:54 92 Nasal Cannula 2.00 12/25/16 16:00 97.5 75 17 152/75 96 12/25/16 15:01 Nasal Cannula 3.50 12/25/16 12:00 97.7 81 19 143/76 93 12/25/16 11:37 96 Nasal Cannula 3.50 CBC/BMP: 12/26/16 0447 12/26/16 0447 Lab Results Laboratory Tests Test 12/26/16 04:47 White Blood Count 11.6 TH/MM3 Red Blood Count 4.35 MIL/MM3 Hemoglobin 12.9 GM/DL Hematocrit 38.0 % Mean Corpuscular Volume 87.3 FL Mean Corpuscular Hemoglobin 29.7 PG Mean Corpuscular Hemoglobin 34.0 % Concent Red Cell Distribution Width 13.7 % Platelet Count 212 TH/MM3 Mean Platelet Volume 7.9 FL Neutrophils (%) (Auto) 85.9 % Lymphocytes (%) (Auto) 7.2 % Monocytes (%) (Auto) 6.8 % Eosinophils (%) (Auto) 0.1 % Basophils (%) (Auto) 0.0 % Neutrophils # (Auto) 10.0 TH/MM3 Lymphocytes # (Auto) 0.8 TH/MM3 Monocytes # (Auto) 0.8 TH/MM3 Eosinophils # (Auto) 0.0 TH/MM3 Basophils # (Auto) 0.0 TH/MM3 CBC Comment DIFF FINAL Differential Comment Sodium Level 132 MEQ/L Potassium Level 3.9 MEQ/L Chloride Level 95 MEQ/L Carbon Dioxide Level 28.8 MEQ/L Anion Gap 8 MEQ/L Blood Urea Nitrogen 9 MG/DL Creatinine 0.53 MG/DL Estimat Glomerular Filtration 148 ML/MIN Rate Random Glucose 112 MG/DL Calcium Level 8.2 MG/DL Total Bilirubin 2.0 MG/DL Aspartate Amino Transf 48 U/L (AST/SGOT) Alanine Aminotransferase 55 U/L (ALT/SGPT) Alkaline Phosphatase 63 U/L Total Protein 6.2 GM/DL Albumin 2.9 GM/DL Physical Exam General General Appearance: Well Developed, Well Nourished, No Acute Distress, Comfortable Eyes Eye Exam: Pupils Equal, Pupils Reactive, Sclera White, Extraocular Movement Intact Throat Throat Exam: Oral Mucosa [place] & Moist, Oral Pharynx Normal Neck Neck Exam: Neck Supple, Trachea Midline Pulmonary Resp Exam: Decreased Bases, Diminished Breath Sounds Resp Remarks bilateral wheezing and crackles. Cardiology CV Exam: Regular, Normal Sinus Rhythm Integumentary Skin Exam: Clear, Warm, Dry, Intact Extremeties Extremities Exam: No Edema Neurologic Neuro Exam: Alert, Awake, Oriented, Speech Clear, Moving All Extremities, No Focal Deficits Psychiatric Psych Exam: Appropriate Responses VTE Prophylaxis VTE Prophylaxis Meds: Heparin PUD Prophylasis PUD Prophylaxis: Protonix Assessment/Plan Assessment/Plan ASSESSMENT AND PLAN 1. This is an 86-year-old male, diagnosed with generalized weakness and cough and a fever secondary to bilateral pneumonia. The patient is on ceftin 500 mg PO BID.. on duoneb neublization. Pulmonary input noted for further recommendation. on prednisone 20 mg PO BID. 2. hyponatremia will be monitored. 3. Hypokalemia resolved. / Hypomagnesium resolved. 4. History of coronary artery disease. Continue home medications. 5. History of hypertension. Continue home medications. will monitor blood pressure. 6. GERD. on Protonix 40 mg p.o. daily. 7. DVT prophylaxis. Heparin 5000 units subcutaneous q. 12-hours. 8. GI prophylaxis. Protonix 40 mg p.o. daily. 9. SOB Get better with IV Lasix check 2 D Echo. ? CHF. We are going to manage the patient on a daily basis and make recommendations on a daily basis Check CBC with diff CMP in AM. DC Plan soon. Discussed Condition with: Patient Jarad Bedoya MD Dec 26, 2016 08:38
[2016-12-26] MEDS: FINASTERIDE 5 MG TAB PO SCH (08:43)
[2016-12-26] MEDS: FUROSEMIDE 40 MG TAB PO SCH (08:43)
[2016-12-26] MEDS: CLOPIDOGREL 75 MG TAB PO SCH (08:43)
[2016-12-26] MEDS: LOSARTAN 50 MG TAB PO SCH (08:43)
[2016-12-26] MEDS: HEPARIN SODIUM - SQ 10,000 UNITS/ML VIAL SQ SCH ×2 (08:44→21:09)
[2016-12-26] MEDS: predniSONE 20 MG TAB PO SCH ×2 (08:44→21:09)
[2016-12-26] MEDS: CEFUROXIME AXETIL 500 MG TAB PO SCH ×2 (08:44→21:08)
[2016-12-26] MEDS: ATENOLOL 50 MG TAB PO SCH ×2 (08:44→21:08)
[2016-12-26] MEDS: ASPIRIN EC 81 MG TABEC PO SCH (08:44)
[2016-12-26] MEDS: SODIUM CHLORIDE 0.9% FLUSH 10 ML FLUSH IV FLUSH SCH ×2 (08:49→21:08)
[2016-12-26 12:00] VITALS: BP 130/76; PULSE 79; RESP 20; TEMP 96.5; O2SAT 95
--- NOTE | 2016-12-26 12:28 | ECHRPT ---
Indication: Shortness of breath CONCLUSIONS Normal left ventricular size. Mild concentric left ventricular hypertrophy. The left ventricular systolic function is normal with an estimated ejection fraction in the range of 65-70%. Mitral annular calcification is present. Trace to mild mitral valve regurgitation. Trace aortic valve regurgitation. 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 The estimated pulmonary arterial pressure is 23 mmHg. BP: / HR: Rhythm: MEASUREMENTS (Male / Female) Normal Values Technical Quality:Good 2D ECHO LV Diastolic Diameter PLAX 4.1 cm 4.2 - 5.9 / 3.9 - 5.3 cm LV Systolic Diameter PLAX 3.1 cm IVS Diastolic Thickness 1.3 cm 0.6 - 1.0 / 0.6 - 0.9 cm LVPW Diastolic Thickness 1.0 cm 0.6 - 1.0 / 0.6 - 0.9 cm LV Relative Wall Thickness 0.6 RV Internal Dim ED PLAX 2.2 cm DOPPLER AV Peak Velocity 198.0 cm/s AV Peak Gradient 15.7 mmHg LVOT Peak Velocity 117.0 cm/s LVOT Peak Gradient 5.5 mmHg Mitral E Point Velocity 56.8 cm/s Mitral A Point Velocity 82.9 cm/s Mitral E to A Ratio 0.7 TR Peak Velocity 181.0 cm/s TR Peak Gradient 13.1 mmHg FINDINGS LEFT VENTRICLE Normal left ventricular size. Mild concentric left ventricular hypertrophy. The left ventricular systolic function is normal with an estimated ejection fraction in the range of 55-60%. RIGHT VENTRICLE Normal right ventricular size and systolic function. LEFT ATRIUM The left atrial size is normal. RIGHT ATRIUM The right atrial size is normal. ATRIAL SEPTUM Normal atrial septal thickness without atrial level shunting by limited color doppler interrogation. AORTA The aortic root and proximal ascending aorta are normal in size on limited imaging. MITRAL VALVE Mitral annular calcification is present. Mild mitral valve regurgitation. AORTIC VALVE Trace aortic valve regurgitation. TRICUSPID VALVE The estimated pulmonary arterial pressure is 23 mmHg. PULMONARY VALVE The pulmonary valve is not well visualized. VESSELS The inferior vena cava is normal in size. PERICARDIUM No pericardial effusion. Ta Booth MD (Electronically Signed) Final Date:26 December 2016 12:26
[2016-12-26 16:00] VITALS: BP 141/80; PULSE 75; RESP 20; TEMP 97.3; O2SAT 96
--- NOTE | 2016-12-26 17:09 | HHI.PR ---
Subjective Remarks Feels better.On 2 L O2 . Home O2 to be arranged. On po antibiotics .Has trouble walking Objective Vital Signs Date Time Temp Pulse Resp B/P Pulse Ox O2 Delivery O2 Flow Rate FiO2 12/26/16 16:00 97.3 75 20 141/80 96 12/26/16 12:00 96.5 79 20 130/76 95 12/26/16 08:30 96 Nasal Cannula 2.00 12/26/16 08:00 96.7 83 20 130/77 98 12/26/16 08:00 96 Nasal Cannula 2.00 12/26/16 04:50 2.00 12/26/16 00:00 96.8 77 20 145/81 90 12/25/16 20:00 96.9 80 20 141/75 90 12/25/16 20:00 Simple Mask 3.00 12/25/16 19:54 92 Nasal Cannula 2.00 I/O 12/25/16 12/25/16 12/25/16 12/26/16 12/26/16 12/26/16 07:00 15:00 23:00 07:00 15:00 23:00 Intake Total 560 ml 240 ml 60 ml 630 ml Output Total 400 ml 2004 ml 1275 ml 670 ml Balance 160 ml -2004 ml -1035 ml -610 ml 630 ml Intake Oral 560 ml 240 ml 60 ml 630 ml Output Urine Total 400 ml 2004 ml 1275 ml 670 ml # Voids 1 4 # Bowel Movements 0 0 0 Result Diagram: 12/26/16 0447 12/26/16 044 Objective Remarks GENERAL: This is an averagely built elderly man who is in no acute distress. HEENT: Head normocephalic. Pupils are reactive and equal. Tongue is moist. Throat is clear. Nasal mucosa clear NECK: No bruits or thyroid enlargement or lymphadenopathy. Trachea midline. CHEST: Distant breath sounds with crackles at both lung bases with occ wheezes bilaterally. CARDIAC: Heart sounds are irregular S1-S2. No murmur. No S3. ABDOMEN: Soft, protuberant. No masses, no organomegaly or tenderness. Bowel sounds are active. EXTREMITIES: No edema with decreased peripheral pulses. NEUROLOGIC: Reflexes are 1+ with no gross motor deficits. RECTAL: Exam is deferred. SKIN: No lesions. Assessment and Plan Assessment and Plan IMPRESSION 1. Bibasilar pulmonary infiltrates with atelectasis and possible basilar pneumonia. 2. History of coronary artery disease status post CABG 3. Hyperkalemia 4. Hypertension 5. 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 Gastroesophageal reflux. Plan : 1. Continue antibiotics PO ceftin 500 mg bid X 7 days 2. o2 at 2 L. 3. prednisone 20 mg BID and taper in 3 weeks 4. Arrange home O2 5. Cont Duonebs qid 6. Home per Anusha Arthur MD Dec 26, 2016 17:09
[2016-12-26 19:32] VITALS: O2SAT 96
[2016-12-26 20:00] VITALS: BP 133/76; PULSE 91; RESP 20; TEMP 97.7; O2SAT 96
[2016-12-26] MEDS: ATORVASTATIN 40 MG TAB PO SCH (21:08)
[2016-12-27] VITALS: BP 120/79; PULSE 80; RESP 20; TEMP 97.3; O2SAT 97
[2016-12-27] MEDS: RESP: ALBUTEROL 2.5 MG/IPRATROPIUM 0.5 MG NEB (SCH) NEB ×5 (03:10→19:28)
[2016-12-27 05:27] LABS: AUTOMATED NEUTROPHIL # 9.4 TH/MM3 (1.8-7.7); EOSINOPHIL % 0.1 % (0.0-4.0); HEMATOCRIT 38.6 % (39.0-51.0); LYMPH % 6.2 % (9.0-44.0); LYMPHOCYTE # 0.7 TH/MM3 (1.0-4.8); MEAN CELL VOLUME 87.9 FL (80.0-100.0); MEAN CORPUSCULAR HGB CONC 34.2 % (32.0-36.0); MONO % 7.7 % (0.0-8.0); PLATELET COUNT 214 TH/MM3 (150-450); RED BLOOD COUNT 4.39 MIL/MM3 (4.50-5.90); RED CELL DISTRIBUTION WIDTH 13.4 % (11.6-17.2); WHITE BLOOD COUNT 10.9 TH/MM3 (4.0-11.0)
[2016-12-27 05:30] LABS: HEMO FLAGS DIFF FINAL
[2016-12-27 05:38] LABS: CHLORIDE 95 MEQ/L (98-107); POTASSIUM 3.5 MEQ/L (3.5-5.1); SODIUM (NA) 131 MEQ/L (136-145)
[2016-12-27 05:43] LABS: ANION GAP 7 MEQ/L (5-15); BICARBONATE 29.5 MEQ/L (21.0-32.0); BLOOD UREA NITROGEN 9 MG/DL (7-18)
[2016-12-27 05:46] LABS: ALT (GPT) 59 U/L (12-78); AST (GOT) 45 U/L (15-37); GLOMERULAR FILTRATION RATE 124 ML/MIN (>89)
[2016-12-27 05:48] LABS: TOTAL BILIRUBIN ADULT 1.8 MG/DL (0.2-1.0)
[2016-12-27 05:49] LABS: ALKALINE PHOSPHATASE 63 U/L (45-117)
[2016-12-27] MEDS: ISOSORBIDE MONONITRATE 60 MG TAB PO SCH (06:01)
[2016-12-27 08:00] VITALS: BP 115/76; PULSE 82; RESP 18; TEMP 97.4; O2SAT 92; O2SAT 94
--- NOTE | 2016-12-27 08:35 | HHI.PR ---
Subjective History of Present Illness Patient SOB better Low Potassium resolved....no acute issue. d/w dr por pulmonary ok to discharge home today. Review of Systems Constitutional Constitutional: Fatigue, Weakness Vitals/Results Intake & Output 12/26/16 12/26/16 12/27/16 15:00 23:00 07:00 Intake Total 630 ml 302 ml 60 ml Output Total 250 ml 475 ml Balance 630 ml 52 ml -415 ml Intake Oral 630 ml 300 ml 60 ml IV Total 2 ml Output Urine Total 250 ml 475 ml # Voids 4 1 102 # Bowel Movements 0 Vital Signs Vital Signs Date Time Temp Pulse Resp B/P Pulse Ox O2 Delivery O2 Flow Rate FiO2 12/27/16 08:00 94 Nasal Cannula 2.00 12/27/16 08:00 97.4 82 18 115/76 92 12/27/16 00:00 97.3 80 20 120/79 97 12/26/16 20:00 97.7 91 20 133/76 96 12/26/16 20:00 96 Nasal Cannula 2.00 Humidified 12/26/16 19:32 96 Nasal Cannula 2.00 12/26/16 16:00 97.3 75 20 141/80 96 12/26/16 12:00 96.5 79 20 130/76 95 CBC/BMP: 12/27/16 0455 12/27/16 0455 Lab Results Laboratory Tests Test 12/27/16 04:55 White Blood Count 10.9 TH/MM3 Red Blood Count 4.39 MIL/MM3 Hemoglobin 13.2 GM/DL Hematocrit 38.6 % Mean Corpuscular Volume 87.9 FL Mean Corpuscular Hemoglobin 30.0 PG Mean Corpuscular Hemoglobin 34.2 % Concent Red Cell Distribution Width 13.4 % Platelet Count 214 TH/MM3 Mean Platelet Volume 7.6 FL Neutrophils (%) (Auto) 86.0 % Lymphocytes (%) (Auto) 6.2 % Monocytes (%) (Auto) 7.7 % Eosinophils (%) (Auto) 0.1 % Basophils (%) (Auto) 0.0 % Neutrophils # (Auto) 9.4 TH/MM3 Lymphocytes # (Auto) 0.7 TH/MM3 Monocytes # (Auto) 0.8 TH/MM3 Eosinophils # (Auto) 0.0 TH/MM3 Basophils # (Auto) 0.0 TH/MM3 CBC Comment DIFF FINAL Differential Comment Sodium Level 131 MEQ/L Potassium Level 3.5 MEQ/L Chloride Level 95 MEQ/L Carbon Dioxide Level 29.5 MEQ/L Anion Gap 7 MEQ/L Blood Urea Nitrogen 9 MG/DL Creatinine 0.62 MG/DL Estimat Glomerular Filtration 124 ML/MIN Rate Random Glucose 122 MG/DL Calcium Level 8.8 MG/DL Total Bilirubin 1.8 MG/DL Aspartate Amino Transf 45 U/L (AST/SGOT) Alanine Aminotransferase 59 U/L (ALT/SGPT) Alkaline Phosphatase 63 U/L Total Protein 5.9 GM/DL Albumin 2.8 GM/DL Physical Exam General General Appearance: Well Developed, Well Nourished, No Acute Distress, Comfortable Eyes Eye Exam: Pupils Equal, Pupils Reactive, Sclera White, Extraocular Movement Intact Throat Throat Exam: Oral Mucosa [place] & Moist, Oral Pharynx Normal Neck Neck Exam: Neck Supple, Trachea Midline Pulmonary Resp Exam: Decreased Bases, Diminished Breath Sounds Resp Remarks bilateral wheezing and crackles. much better. Cardiology CV Exam: Regular, Normal Sinus Rhythm Integumentary Skin Exam: Clear, Warm, Dry, Intact Extremeties Extremities Exam: No Edema Neurologic Neuro Exam: Alert, Awake, Oriented, Speech Clear, Moving All Extremities, No Focal Deficits Psychiatric Psych Exam: Appropriate Responses VTE Prophylaxis VTE Prophylaxis Meds: Heparin PUD Prophylasis PUD Prophylaxis: Protonix Assessment/Plan Assessment/Plan ASSESSMENT AND PLAN 1. This is an 86-year-old male, diagnosed with generalized weakness and cough and a fever secondary to bilateral pneumonia. The patient is on ceftin 500 mg PO BID.. on duoneb neublization. Pulmonary input noted for further recommendation. on prednisone 20 mg PO BID. 2. hyponatremia will be monitored. 3. Hypokalemia resolved. / Hypomagnesium resolved. 4. History of coronary artery disease. Continue home medications. 5. History of hypertension. Continue home medications. will monitor blood pressure. 6. GERD. on Protonix 40 mg p.o. daily. 7. DVT prophylaxis. Heparin 5000 units subcutaneous q. 12-hours. 8. GI prophylaxis. Protonix 40 mg p.o. daily. 9. SOB Get better with PO Lasix check 2 D Echo noted. d/w dr pro pulmonary ok to discharge home today. f/u with PCP/ Pulmonary 1 week. Discussed Condition with: Patient Jarad Bedoya MD Dec 27, 2016 08:35 DC Plan soon. Jarad Bedoya MD Dec 27, 2016 08:35
[2016-12-27] MEDS: predniSONE 20 MG TAB PO SCH (08:40)
[2016-12-27] MEDS: FUROSEMIDE 40 MG TAB PO SCH (08:40)
[2016-12-27] MEDS: ATENOLOL 50 MG TAB PO SCH ×2 (08:41→20:28)
[2016-12-27] MEDS: CEFUROXIME AXETIL 500 MG TAB PO SCH ×2 (08:41→20:28)
[2016-12-27] MEDS: CLOPIDOGREL 75 MG TAB PO SCH (08:41)
[2016-12-27] MEDS: ASPIRIN EC 81 MG TABEC PO SCH (08:41)
[2016-12-27] MEDS: FINASTERIDE 5 MG TAB PO SCH (08:41)
[2016-12-27] MEDS: LOSARTAN 50 MG TAB PO SCH (08:42)
[2016-12-27] MEDS: HEPARIN SODIUM - SQ 10,000 UNITS/ML VIAL SQ SCH ×2 (08:42→20:29)
[2016-12-27] MEDS ORDERED: POLYETHYLENE GLYCOL 17 GM PKG PO PRN (08:45)
[2016-12-27] MEDS ORDERED: DOCUSATE SODIUM 100 MG CAP PO PRN (08:45)
[2016-12-27] MEDS: SODIUM CHLORIDE 0.9% FLUSH 10 ML FLUSH IV FLUSH SCH ×2 (09:00→20:29)
[2016-12-27] MEDS ORDERED: DOCUSATE SODIUM 50 MG/SENNA 8.6 MG TAB PO PRN (09:30)
[2016-12-27 12:00] VITALS: BP 118/73; PULSE 72; RESP 18; TEMP 97.3; O2SAT 95
[2016-12-27 16:00] VITALS: BP 121/73; PULSE 76; RESP 18; TEMP 97.2; O2SAT 94
[2016-12-27] MEDS ORDERED: PRED-503 PO (17:52)
[2016-12-27] MEDS ORDERED: CEFU1TAB20 PO (17:52)
[2016-12-27] MEDS ORDERED: FURO40TA PO (17:52)
--- NOTE | 2016-12-27 19:05 | HHI.PR ---
Subjective Remarks Much better.On 2 L O2 . Home O2 arranged. On po antibiotics .No new problems , but has a Cough. Objective Vital Signs Date Time Temp Pulse Resp B/P Pulse Ox O2 Delivery O2 Flow Rate FiO2 12/27/16 16:00 97.2 76 18 121/73 94 12/27/16 12:00 97.3 72 18 118/73 95 12/27/16 08:00 94 Nasal Cannula 2.00 12/27/16 08:00 97.4 82 18 115/76 92 12/27/16 08:00 Nasal Cannula 2.00 12/27/16 00:00 97.3 80 20 120/79 97 12/26/16 20:00 97.7 91 20 133/76 96 12/26/16 20:00 96 Nasal Cannula 2.00 Humidified 12/26/16 19:32 96 Nasal Cannula 2.00 I/O 12/26/16 12/26/16 12/26/16 12/27/16 12/27/16 12/27/16 06:59 14:59 22:59 06:59 14:59 22:59 Intake Total 60 ml 630 ml 302 ml 60 ml 840 ml Output Total 670 ml 250 ml 475 ml 650 ml Balance -610 ml 630 ml 52 ml -415 ml 190 ml Intake Oral 60 ml 630 ml 300 ml 60 ml 840 ml IV Total 2 ml Output Urine Total 670 ml 250 ml 475 ml 650 ml # Voids 1 4 1 102 # Bowel Movements 0 0 Result Diagram: 12/27/16 0455 12/27/16 0455 Objective Remarks GENERAL: This is an averagely built elderly man who is in no acute distress. HEENT: Head normocephalic. Pupils are reactive and equal. Tongue is moist. Throat is clear. Nasal mucosa clear NECK: No bruits or thyroid enlargement or lymphadenopathy. Trachea midline. CHEST: Distant breath sounds with crackles at both lung bases . CARDIAC: Heart sounds are irregular S1-S2. No murmur. No S3. ABDOMEN: Soft, protuberant. No masses, no organomegaly or tenderness. Bowel sounds are active. EXTREMITIES: No edema with decreased peripheral pulses. NEUROLOGIC: Reflexes are 1+ with no gross motor deficits. RECTAL: Exam is deferred. SKIN: No lesions. Assessment and Plan Assessment and Plan IMPRESSION 1. Bibasilar pulmonary infiltrates with atelectasis and possible basilar pneumonia. 2. History of coronary artery disease status post CABG 3. Hyperkalemia 4. Hypertension 5. 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 Gastroesophageal reflux. Plan : 1. Continue antibiotics PO ceftin 500 mg bid X 7 days 2. o2 at 2 L. all the time 3. prednisone 20 mg BID and taper in 3 weeks 4. Arrange home O2 2 L 5. QID Duonebs, and add Ventolin HFA , 2 puffs tid prn 6. Prednisone 30 mg daily X 7 days and taper over 3 weeks. 7. Home in am and will F/U as OP in 2 weeks. Anusha Rosales MD Dec 27, 2016 19:05
[2016-12-27 19:28] VITALS: O2SAT 96
[2016-12-27] MEDS ORDERED: guaiFENesin/DEXTROMETHORPHAN 200 MG/20 MG/10 ML CUP PO PRN (20:00)
[2016-12-27] MEDS: MAGNESIUM HYDROXIDE SUSP 30 ML CUP PO PRN (20:27)
[2016-12-27] MEDS: ATORVASTATIN 40 MG TAB PO SCH (20:28)
[2016-12-27 20:33] VITALS: BP 129/72; PULSE 86; RESP 20; TEMP 98.3; O2SAT 96
--- NOTE | 2016-12-27 22:41 | MD ---
cc: JARAD FALCON MD ADMISSION DATE: 12/19/2016 DISCHARGE DATE: 12/27/16 [place] Visit [facility].Discharge Date Okay to discharge patient. Condition at the time of discharge satisfactory, activity as tolerated. Diet cardiac diet. ALLERGIES CRAB IODINE DISCHARGE MEDICATIONS 1. Ceftin 500 p.o. twice a day for 7 days 2. Lasix 40 mg p.o. daily. 3. Prednisone 20 mg p.o. daily for 4 days. 4. Amlodipine 10 mg p.o. daily, 5. Aspirin 81 mg 6. 50 mg twice a day 7. mg by mouth daily, 8. Plavix 75 mg by mouth daily 9. Proscar 5 mg p.o. daily, 10. Isosorbide mononitrate 120 mg p.o. daily 11. Losartan 50 mg p.o. daily. The patient advised to follow with PCP and pulmonary in 1 week. ADMISSION DIAGNOSIS Shortness of breath secondary to pneumonia. DISCHARGE DIAGNOSIS 1. Shortness of breath improved 2. Pneumonia improved. The patient seen by heel scorer. Okay to discharge per pulmonology. Discussed with Dr. Rosales. OTHER COMORBIDITIES 1. Hyponatremia 2. Hypokalemia which has resolved 3. Hypomagnesemia which is resolved 4. History of coronary artery disease. 5. History of hypertension. HOSPITAL COURSE This is an 86-year male admitted with generalized weakness and cough, diagnosed with bilateral pneumonia. The patient was given empiric antibiotic during hospital stay. The patient remained stable. No acute event happened. The patient discharged in a satisfactory condition. Discharged per Dr. Rosales pulmonary. Further details in the medical record. Jarad Falcon MD EA/ /5:55 PM /10:31 PM
[2016-12-28 00:03] VITALS: BP 116/68; PULSE 73; RESP 16; TEMP 98.4; O2SAT 94
[2016-12-28 04:05] VITALS: BP 139/77; PULSE 74; RESP 16; TEMP 97.7; O2SAT 92
[2016-12-28] MEDS: ISOSORBIDE MONONITRATE 60 MG TAB PO SCH (06:47)
[2016-12-28 06:51] LABS: AUTOMATED NEUTROPHIL # 9.4 TH/MM3 (1.8-7.7); BASOPHIL % 0.4 % (0.0-2.0); EOSINOPHIL % 0.3 % (0.0-4.0); HEMATOCRIT 38.6 % (39.0-51.0); LYMPH % 11.2 % (9.0-44.0); LYMPHOCYTE # 1.3 TH/MM3 (1.0-4.8); MEAN CORPUSCULAR HEMOGLOBIN 30.6 PG (27.0-34.0); MEAN CORPUSCULAR HGB CONC 34.7 % (32.0-36.0); MONO % 10.2 % (0.0-8.0); NEUT % 77.9 % (16.0-70.0); PLATELET COUNT 236 TH/MM3 (150-450); RED BLOOD COUNT 4.39 MIL/MM3 (4.50-5.90); RED CELL DISTRIBUTION WIDTH 13.7 % (11.6-17.2); WHITE BLOOD COUNT 11.9 TH/MM3 (4.0-11.0)
[2016-12-28 06:59] LABS: CHLORIDE 92 MEQ/L (98-107); POTASSIUM 3.5 MEQ/L (3.5-5.1); SODIUM (NA) 131 MEQ/L (136-145)
[2016-12-28 07:03] LABS: HEMO FLAGS DIFF FINAL
[2016-12-28 07:06] LABS: ANION GAP 6 MEQ/L (5-15); BICARBONATE 32.7 MEQ/L (21.0-32.0); BLOOD UREA NITROGEN 11 MG/DL (7-18)
[2016-12-28 07:09] LABS: AST (GOT) 46 U/L (15-37); GLOMERULAR FILTRATION RATE 126 ML/MIN (>89)
[2016-12-28 07:10] LABS: TOTAL BILIRUBIN ADULT 1.6 MG/DL (0.2-1.0)
[2016-12-28 07:13] LABS: ALKALINE PHOSPHATASE 61 U/L (45-117)
[2016-12-28 07:18] LABS: ALT (GPT) 68 U/L (12-78)
[2016-12-28 08:00] VITALS: BP 116/63; PULSE 69; RESP 18; TEMP 95.3; O2SAT 93
[2016-12-28] MEDS: FINASTERIDE 5 MG TAB PO SCH (08:20)
[2016-12-28] MEDS: FUROSEMIDE 40 MG TAB PO SCH (08:20)
[2016-12-28] MEDS: ATENOLOL 50 MG TAB PO SCH (08:21)
[2016-12-28] MEDS: CEFUROXIME AXETIL 500 MG TAB PO SCH (08:21)
[2016-12-28] MEDS: LOSARTAN 50 MG TAB PO SCH (08:22)
[2016-12-28] MEDS: CLOPIDOGREL 75 MG TAB PO SCH (08:22)
[2016-12-28] MEDS: ASPIRIN EC 81 MG TABEC PO SCH (08:22)
[2016-12-28] MEDS: HEPARIN SODIUM - SQ 10,000 UNITS/ML VIAL SQ SCH (08:23)
[2016-12-28] MEDS: SODIUM CHLORIDE 0.9% FLUSH 10 ML FLUSH IV FLUSH SCH (08:25)
--- NOTE | 2016-12-28 08:30 | HHI.PR ---
Subjective History of Present Illness Patient SOB better Low Potassium resolved....no acute issue. d/w dr pro pulmonary ok to discharge home today.Oxygen needed at home prescription given. Review of Systems Constitutional Constitutional: Fatigue, Weakness Vitals/Results Intake & Output 12/27/16 12/27/16 12/28/16 14:59 22:59 06:59 Intake Total 840 ml 360 ml 360 ml Output Total 650 ml 180 ml 530 ml Balance 190 ml 180 ml -170 ml Intake Oral 840 ml 360 ml 360 ml Output Urine Total 650 ml 180 ml 530 ml Vital Signs Vital Signs Date Time Temp Pulse Resp B/P Pulse Ox O2 Delivery O2 Flow Rate FiO2 12/28/16 04:05 97.7 74 16 139/77 92 12/28/16 00:03 98.4 73 16 116/68 94 12/27/16 20:33 98.3 86 20 129/72 96 12/27/16 20:00 Nasal Cannula 2.00 Humidified 12/27/16 19:28 96 Nasal Cannula 2.00 12/27/16 16:00 97.2 76 18 121/73 94 12/27/16 12:00 97.3 72 18 118/73 95 CBC/BMP: 12/28/16 0547 12/28/16 0547 Lab Results Laboratory Tests Test 12/28/16 05:47 White Blood Count 11.9 TH/MM3 Red Blood Count 4.39 MIL/MM3 Hemoglobin 13.4 GM/DL Hematocrit 38.6 % Mean Corpuscular Volume 88.0 FL Mean Corpuscular Hemoglobin 30.6 PG Mean Corpuscular Hemoglobin 34.7 % Concent Red Cell Distribution Width 13.7 % Platelet Count 236 TH/MM3 Mean Platelet Volume 7.6 FL Neutrophils (%) (Auto) 77.9 % Lymphocytes (%) (Auto) 11.2 % Monocytes (%) (Auto) 10.2 % Eosinophils (%) (Auto) 0.3 % Basophils (%) (Auto) 0.4 % Neutrophils # (Auto) 9.4 TH/MM3 Lymphocytes # (Auto) 1.3 TH/MM3 Monocytes # (Auto) 1.2 TH/MM3 Eosinophils # (Auto) 0.0 TH/MM3 Basophils # (Auto) 0.0 TH/MM3 CBC Comment DIFF FINAL Differential Comment Sodium Level 131 MEQ/L Potassium Level 3.5 MEQ/L Chloride Level 92 MEQ/L Carbon Dioxide Level 32.7 MEQ/L Anion Gap 6 MEQ/L Blood Urea Nitrogen 11 MG/DL Creatinine 0.61 MG/DL Estimat Glomerular Filtration 126 ML/MIN Rate Random Glucose 89 MG/DL Calcium Level 8.4 MG/DL Total Bilirubin 1.6 MG/DL Aspartate Amino Transf 46 U/L (AST/SGOT) Alanine Aminotransferase 68 U/L (ALT/SGPT) Alkaline Phosphatase 61 U/L Total Protein 6.0 GM/DL Albumin 2.8 GM/DL Physical Exam General General Appearance: Well Developed, Well Nourished, No Acute Distress, Comfortable Eyes Eye Exam: Pupils Equal, Pupils Reactive, Sclera White, Extraocular Movement Intact Throat Throat Exam: Oral Mucosa [place] & Moist, Oral Pharynx Normal Neck Neck Exam: Neck Supple, Trachea Midline Pulmonary Resp Exam: Decreased Bases, Diminished Breath Sounds Resp Remarks bilateral wheezing and crackles. much better. Cardiology CV Exam: Regular, Normal Sinus Rhythm Integumentary Skin Exam: Clear, Warm, Dry, Intact Extremeties Extremities Exam: No Edema Neurologic Neuro Exam: Alert, Awake, Oriented, Speech Clear, Moving All Extremities, No Focal Deficits Psychiatric Psych Exam: Appropriate Responses VTE Prophylaxis VTE Prophylaxis Meds: Heparin PUD Prophylasis PUD Prophylaxis: Protonix Assessment/Plan Assessment/Plan ASSESSMENT AND PLAN 1. This is an 86-year-old male, diagnosed with generalized weakness and cough and a fever secondary to bilateral pneumonia. The patient is on ceftin 500 mg PO BID.. on duoneb neublization. Pulmonary input noted for further recommendation. on prednisone 20 mg PO BID. 2. hyponatremia will be monitored. 3. Hypokalemia resolved. / Hypomagnesium resolved. 4. History of coronary artery disease. Continue home medications. 5. History of hypertension. Continue home medications. will monitor blood pressure. 6. GERD. on Protonix 40 mg p.o. daily. 7. DVT prophylaxis. Heparin 5000 units subcutaneous q. 12-hours. 8. GI prophylaxis. Protonix 40 mg p.o. daily. 9. SOB Get better with PO Lasix checked 2 D Echo noted. d/w dr pro pulmonary ok to discharge home today. f/u with PCP/ Pulmonary 1 week. Oxygen needed at home prescription given. Discussed Condition with: Patient Jarad Bedoya MD Dec 28, 2016 08:30
[2016-12-28] MEDS ORDERED: predniSONE 10 MG TAB PO SCH (09:00)
[2016-12-28] MEDS ORDERED: OXYGENDME NAS.CANULA (09:18)
[2016-12-28 12:00] VITALS: BP 105/71; PULSE 54; RESP 18; TEMP 95.2; O2SAT 94
[2016-12-28 14:02] VITALS: O2SAT 94
[2016-12-28 16:00] VITALS: BP 113/69; PULSE 67; RESP 18; TEMP 95.3; O2SAT 97
== END 2016-12-28 17:44 | disposition home or self-care (01) | DRG 194 ==
LOC: PHED 18:22 → PHEDA 20:12 → PH3B 23:17
PROVIDERS: ADMIT Family Medicine; ATTEND Family Medicine
DX: J18.9 Pneumonia, unspecified organism (principal); E87.1 Hypo-osmolality and hyponatremia; E86.0 Dehydration; E83.42 Hypomagnesemia; E78.5 Hyperlipidemia, unspecified; I25.10 Atherosclerotic heart disease of native coronary artery without angina pectoris; H91.90 Unspecified hearing loss, unspecified ear; E87.6 Hypokalemia; K21.9 Gastro-esophageal reflux disease without esophagitis; I10 Essential (primary) hypertension; J61 Pneumoconiosis due to asbestos and other mineral fibers; Z95.1 Presence of aortocoronary bypass graft; Z95.2 Presence of prosthetic heart valve; Z79.02 Long term (current) use of antithrombotics/antiplatelets; Z95.5 Presence of coronary angioplasty implant and graft
CPT/HCPCS: 36600; 71010; 71250; 80053; 81001; 82805; 83605; 83735; 85025; 87040; 87804; 93306; 94060; 94150; 94620; 94640; 94664; 94667; 94668; 96374; J0692; J1644; J1940; J2920; J3370; J3475; J7030; J7040; J7512

== ENCOUNTER → 2017-01-11 | Outpatient (CLI) | payer MEDICARE, OTHER ==
[~2017-01-11] MED LIST changes: -1-ME1LIQ PO; +AMLO10TA2 PO; +ASPI81TA81 PO; -ATEN1TAB73 PO; +ATEN50TA PO; +ATOR1TAB18 PO; +CEFU1TAB20 PO; -CLOP75 PO; +CLOP75TA PO; -ECOT81TA2 PO; +FURO40TA PO; +ISOS120T PO; -ISOS120T14 PO; +METH4PAK PO; +OXYGENDME NAS.CANULA; +PRED-503 PO; +PROS5TAB PO; -PROS5TAB2 PO; -RANI150T PO; +RANO500 PO; +VALA1TAB PO
[2017-01-11 07:45] LABS: MEAN CORPUSCULAR HGB CONC 36.2 % (32.0-36.0)
[2017-01-11 09:30] LABS: ALT (GPT) 27 U/L (12-78); ANION GAP 7 MEQ/L (5-15); AST (GOT) 24 U/L (15-37); BICARBONATE 29.4 MEQ/L (21.0-32.0); BLOOD UREA NITROGEN 4 MG/DL (7-18); CHLORIDE 99 MEQ/L (98-107); GLOMERULAR FILTRATION RATE 101 ML/MIN (>89); GLUCOSE,FASTING 89 MG/DL (74-99); POTASSIUM 3.5 MEQ/L (3.5-5.1); SODIUM (NA) 135 MEQ/L (136-145)
[2017-01-11 09:31] LABS: BLOOD, URINE NEG (NEG); COMMENT (UR) CULT NOT INDICATED; CULTURE IF INDICATED CULT NOT INDICATED; GLUCOSE,URINE NEG (NEG); KETONE, URINE NEG (NEG); NITRITE,URINE NEG (NEG); PH, URINE 7.5 (5.0-8.5); URINE COLOR YELLOW (YELLW/STRAW)
[2017-01-11 09:57] LABS: ALKALINE PHOSPHATASE 60 U/L (45-117); HDL CHOLESTEROL 50.2 MG/DL (40.0-60.0); LDL CHOLESTEROL 61 MG/DL (0-99); TOTAL BILIRUBIN ADULT 1.4 MG/DL (0.2-1.0)
[2017-01-11 10:18] LABS: BASOPHIL % 0.5 % (0.0-2.0); EOSINOPHIL # 0.3 TH/MM3 (0-0.4); EOSINOPHIL % 4.6 % (0.0-4.0); HEMATOCRIT 37.3 % (39.0-51.0); LYMPH % 21.1 % (9.0-44.0); LYMPHOCYTE # 1.3 TH/MM3 (1.0-4.8); MEAN CELL VOLUME 85.9 FL (80.0-100.0); MEAN CORPUSCULAR HEMOGLOBIN 31.1 PG (27.0-34.0); MONO % 8.4 % (0.0-8.0); NEUT % 65.4 % (16.0-70.0); PLATELET COUNT 123 TH/MM3 (150-450); RED BLOOD COUNT 4.35 MIL/MM3 (4.50-5.90); RED CELL DISTRIBUTION WIDTH 15.3 % (11.6-17.2); WHITE BLOOD COUNT 6.1 TH/MM3 (4.0-11.0)
[2017-01-11 10:50] LABS: HEMO FLAGS AUTO DIFF
[2017-01-11 11:43] LABS: BURR CELLS 1+ (NORMAL); OVALOCYTES 1+ (NORMAL); PLATELET ESTIMATE SMEAR LOW (NORMAL); PLATELET MORPHOLOGY NORMAL (NORMAL); SCAN/DIFF AUTO DIFF CONFIRMED
[2017-01-11 16:58] LABS: HEMOGLOBIN A1a 0.9 %; HEMOGLOBIN Ao 86.5 %; HEMOGLOBIN F 0.8 %; HEMOGLOBIN LA1C 1.7 %; HEMOGLOBIN P3 3.3 %
== END ==
LOC: PLAB 07:40
PROVIDERS: ATTEND Internal Medicine
DX: E53.8 Deficiency of other specified B group vitamins (principal); I10 Essential (primary) hypertension; R73.01 Impaired fasting glucose; E55.9 Vitamin D deficiency, unspecified; E78.5 Hyperlipidemia, unspecified
CPT/HCPCS: 36415; 80053; 80061; 81001; 82306; 82607; 83036; 84443; 85025

== ENCOUNTER 2017-03-08 09:34 | Observation (INO) | payer MEDICARE, OTHER ==
[2017-03-08] VITALS (12 sets, daily range): BP systolic 110–160; BP diastolic 52–81; PULSE 73–98; RESP 14–22; TEMP 97.5–98.2; O2SAT 92–99
[~2017-03-08 09:34] MED LIST changes: -METH4PAK PO; -RANO500 PO; -VALA1TAB PO
[2017-03-08] MEDS ORDERED: SODIUM CHLORIDE 0.9% FLUSH 10 ML FLUSH IVF PRN (09:45)
[2017-03-08 09:59] LABS: AUTOMATED NEUTROPHIL # 11.2 TH/MM3 (1.8-7.7); BASOPHIL # 0.1 TH/MM3 (0-0.2); BASOPHIL % 0.7 % (0.0-2.0); HEMATOCRIT 46.7 % (39.0-51.0); HEMO FLAGS DIFF FINAL; LYMPH % 8.1 % (9.0-44.0); MEAN CELL VOLUME 89.3 FL (80.0-100.0); MEAN CORPUSCULAR HEMOGLOBIN 30.5 PG (27.0-34.0); MEAN CORPUSCULAR HGB CONC 34.2 % (32.0-36.0); MONO % 3.8 % (0.0-8.0); NEUT % 87.4 % (16.0-70.0); PLATELET COUNT 143 TH/MM3 (150-450); RED BLOOD COUNT 5.22 MIL/MM3 (4.50-5.90); RED CELL DISTRIBUTION WIDTH 14.2 % (11.6-17.2); WHITE BLOOD COUNT 12.9 TH/MM3 (4.0-11.0)
--- NOTE | 2017-03-08 10:13 | RADRPT ---
EXAM DATE/TIME: 03/08/2017 09:55 [facility] COMPARISON: CHEST SINGLE AP, December 24, 2016, 6:15. INDICATIONS : Chest pain MEDICAL HISTORY : Hypertension. Hypercholesterolemia. SURGICAL HISTORY : Coronary artery stent. CABG. ENCOUNTER: Initial ACUITY: 2 days PAIN SCORE: 6/10 LOCATION: Bilateral chest FINDINGS: A single view of the chest is lordotic in nature which limits evaluation of the lung bases. There is elevation of the right hemidiaphragm with the lungs to be symmetrically aerated without evidence of m ass, infiltrate or effusion. The cardiomediastinal contours are unremarkable. Osseous structures ar e intact. CONCLUSION: No acute cardio pulmonary disease. Catrachito Basilio Jr., MD on March 08, 2017 at 10:11 Board Certified Radiologist. This report was verified electronically.
[2017-03-08 10:19] LABS: POTASSIUM 4.1 MEQ/L (3.5-5.1)
[2017-03-08 10:22] LABS: BICARBONATE 24.3 MEQ/L (21.0-32.0); MAGNESIUM 2.1 MG/DL (1.5-2.5)
[2017-03-08 10:24] LABS: APTT (PATIENT) 26.1 SEC (24.3-30.1); PROTHROMBIN TIME - PATIENT 11.3 SEC (9.8-11.6)
[2017-03-08] MEDS ORDERED: HEPARIN SODIUM - IV 10,000 UNITS/10 ML VIAL IV PUSH ONE (10:45)
[2017-03-08] MEDS ORDERED: HEPARIN-D5W 25,000 U/250 ML 250 ML IV PRN (10:45)
--- NOTE | 2017-03-08 11:20 | PD ---
HPI Chief Complaint: Chest Pain Time Seen by Provider: 09:36 Travel History International Travel<30 days: No Contact w/Intl Traveler<30days: No Traveled to known affect area: No History of Present Illness HPI 86 yo M c/o chest pain. onset occurred yesterday at rest. location retrosternal with radiation to the L shoulder. pt has hx avr in [facility] 9 months prior. cath and stenting was performed then as well. pt reports distal lesion not amenable to pci with medical management since. dr nguyen sent pt to er today. pain is reported to be 6-7/10. nitro did not help pain. similar prior acute coronary events produced a similar quality of pain. no significant dyspnea. no fever/cough. PFSH Past Medical History Hx Anticoagulant Therapy: Yes (PLAVIX) Arthritis: Yes Asthma: No Blood Disorders: No Heart Rhythm Problems: No Cancer: No Cardiovascular Problems: Yes (aorta valve replacement 05/2016, with stent) High Cholesterol: Yes Chemotherapy: No Chest Pain: Yes Congestive Heart Failure: No COPD: No Cerebrovascular Accident: Yes Coronary Artery Disease: Yes Diabetes: No Diminished Hearing: Yes Endocrine: No Glaucoma: No Genitourinary: Yes Headaches: No Hypertension: Yes Immune Disorder: No Kidney Stones: No Musculoskeletal: Yes Neurologic: Yes Psychiatric: No Reproductive: No Respiratory: No Immunizations Current: Yes Migraines: No Myocardial Infarction: Yes Radiation Therapy: No Renal Failure: No Seizures: No Sleep Apnea: No Thyroid Disease: No Past Surgical History Abdominal Surgery: Yes (LEFT HERNIA) AICD: No Arteriovenous Shunt: No Cardiac Surgery: Yes (CABAG 2000) Coronary Artery Bypass Graft: Yes (2000) Coronary Stent: Yes (04/2016) Ear Surgery: No Endocrine Surgery: No Eye Surgery: No Genitourinary Surgery: No Gynecologic Surgery: No Insulin Pump: No Joint Replacement: No Neurologic Surgery: No Oral Surgery: No Pacemaker: No Thoracic Surgery: No Valve Replacement: Yes (MAY 2016) Other Surgery: Yes Social History Alcohol Use: No Tobacco Use: No Substance Use: No Allergies-Medications (Allergen,Severity, Reaction): Coded Allergies: iodine (Unverified Allergy, Severe, 03/08/17) potassium iodide (Unverified Allergy, Severe, 03/08/17) povidone-iodine (Unverified Allergy, Severe, 03/08/17) sodium iodide (Unverified Allergy, Severe, 03/08/17) sodium iodide (Unverified Allergy, Severe, 03/08/17) crab (Unverified Allergy, Mild, 03/08/17) ITCHING Reported Meds & Prescriptions Reported Meds & Active Scripts Active Furosemide 40 Mg Tab 40 Mg PO DAILY Reported Methylprednisolone Dosepak (Methylprednisolone) 4 Dspk 4 Mg PO DIRECTED Per Pharmacist Direction Valacyclovir (Valacyclovir HCl) 1,000 Mg Tab 1,000 Mg PO TID Aspir-81 (Aspirin) 81 Mg Tabdr 81 Mg PO DAILY Clopidogrel (Clopidogrel Bisulfate) 75 Mg Tab 75 Mg PO DAILY Atenolol 50 Mg Tab 50 Mg PO BID Proscar (Finasteride) 5 Mg Tab 5 Mg PO DAILY Do not crush. Atorvastatin (Atorvastatin Calcium) 80 Mg Tab 80 Mg PO HS Losartan (Losartan Potassium) 50 Mg Tab 50 Mg PO DAILY Amlodipine (Amlodipine Besylate) 10 Mg Tab 10 Mg PO DAILY Isosorbide Mononitrate ER (Isosorbide Mononitrate) 120 Mg Miguel Angel 120 Mg PO DAILY Review of Systems Except as stated in HPI: all other systems reviewed are Neg General / Constitutional: No: Fever Physical Exam Narrative GENERAL: 86 yo M, wnwd, mild distress, 2/2 pain and/or anxiety SKIN: Warm and dry. HEAD: Atraumatic. Normocephalic. EYES: Pupils equal and round. No scleral icterus. No injection or drainage. ENT: No nasal bleeding or discharge. Mucous membranes pink and moist. NECK: Trachea midline. No JVD. CARDIOVASCULAR: Regular rate and rhythm. RESPIRATORY: No accessory muscle use. Clear to auscultation. Breath sounds equal bilaterally. GASTROINTESTINAL: Abdomen soft, non-tender, nondistended. Hepatic and splenic margins not palpable. MUSCULOSKELETAL: Extremities without clubbing, cyanosis, or edema. No obvious deformities. NEUROLOGICAL: Awake and alert. No obvious cranial nerve deficits. Motor grossly within normal limits. Five out of 5 muscle strength in the arms and legs. Normal speech. PSYCHIATRIC: Appropriate mood and affect; insight and judgment normal. Data Data Last Documented VS Vital Signs Date Time Temp Pulse Resp B/P (MAP) Pulse Ox O2 Delivery O2 Flow Rate FiO2 03/08/17 11:18 76 20 115/62 (79) 97 03/08/17 10:34 Nasal Cannula 2.00 03/08/17 09:41 97.5 vs reviewed Orders Orders Electrocardiogram (03/08/17 09:36) Basic Metabolic Panel (Bmp) (03/08/17 09:36) Ckmb (Isoenzyme) Profile (03/08/17 09:36) Complete Blood Count With Diff (03/08/17 09:36) Magnesium (Mg) (03/08/17 09:36) Prothrombin Time / Inr (Pt) (03/08/17 09:36) Act Partial Throm Time (Ptt) (03/08/17 09:36) Troponin I (03/08/17 09:36) Chest, Single Ap (03/08/17 09:36) Ecg Monitoring (03/08/17 09:36) Iv Access Insert/Monitor (03/08/17 09:36) Oximetry (03/08/17 09:36) Oxygen Administration (03/08/17 09:36) Sodium Chloride 0.9% Flush (Ns Flush) (03/08/17 09:45) Heparin Inj (Heparin Inj) (03/08/17 10:45) Heparin Inj (Heparin Inj) (03/08/17 16:45) Heparin Inj (Heparin Inj) (03/08/17 16:45) Heparin-D5w 25,000 U/250 Ml (Heparin-D5w (03/08/17 10:45) Cbc No Diff, Includes Plts (03/11/17 06:00) Act Partial Throm Time (Ptt) (03/08/17 17:43) Occult Blood (Hemoccult) Stool (03/08/17 10:43) Admit Order (Ed Use Only) (03/08/17 11:48) Labs Laboratory Tests Test 03/08/17 09:50 White Blood Count 12.9 TH/MM3 Red Blood Count 5.22 MIL/MM3 Hemoglobin 16.0 GM/DL Hematocrit 46.7 % Mean Corpuscular Volume 89.3 FL Mean Corpuscular Hemoglobin 30.5 PG Mean Corpuscular Hemoglobin Concent 34.2 % Red Cell Distribution Width 14.2 % Platelet Count 143 TH/MM3 Mean Platelet Volume 7.4 FL Neutrophils (%) (Auto) 87.4 % Lymphocytes (%) (Auto) 8.1 % Monocytes (%) (Auto) 3.8 % Eosinophils (%) (Auto) 0.0 % Basophils (%) (Auto) 0.7 % Neutrophils # (Auto) 11.2 TH/MM3 Lymphocytes # (Auto) 1.0 TH/MM3 Monocytes # (Auto) 0.5 TH/MM3 Eosinophils # (Auto) 0.0 TH/MM3 Basophils # (Auto) 0.1 TH/MM3 CBC Comment DIFF FINAL Differential Comment Prothrombin Time 11.3 SEC Prothromb Time International Ratio 1.0 RATIO Activated Partial Thromboplast Time 26.1 SEC Blood Urea Nitrogen 7 MG/DL Creatinine 0.88 MG/DL Random Glucose 195 MG/DL Calcium Level 9.0 MG/DL Magnesium Level 2.1 MG/DL Sodium Level 130 MEQ/L Potassium Level 4.1 MEQ/L Chloride Level 96 MEQ/L Carbon Dioxide Level 24.3 MEQ/L Anion Gap 10 MEQ/L Estimat Glomerular Filtration Rate 83 ML/MIN Total Creatine Kinase 88 U/L Troponin I 0.38 NG/ML MDM Medical Decision Making Medical Screen Exam Complete: Yes Emergency Medical Condition: Yes Differential Diagnosis nstemi, anemia, pna, pe Narrative Course CBC & BMP Diagram 03/08/17 09:50 Calcium Level 9.0, Magnesium Level 2.1 EKG: sinus, no ST elevations tn 0.38 CXR: no dense consolidation d/w Dr Estevan Farias for cardiology, plan for cath today d/w Dr Hensley for [facility] Diagnosis Primary Impression: NSTEMI (non-ST elevated myocardial infarction) Admitting Information Admitting Physician Requests: Admit Stanley Farias MD Mar 08, 2017 11:20
[2017-03-08] MEDS ORDERED: FAMOTIDINE 20 MG/2 ML VIAL IV PUSH ONE (14:00)
[2017-03-08] MEDS ORDERED: methylPREDNISolone SOD SUCC 125 MG/2 ML VIAL IV PUSH ONE (14:00)
[2017-03-08] MEDS ORDERED: diphenhydrAMINE HCL 50 MG/ML VIAL IV PUSH ONE (14:00)
--- NOTE | 2017-03-08 14:19 | EKG ---
Date Performed: 03/08/2017 Time Performed: 09:39:13 PTAGE: 86 years EKG: Sinus rhythm WITH FIRST DEGREE AV BLOCK LEFT AXIS DEVIATION POSSIBLE LEFT VENTRICULAR HYPERTROPHY AND ST-T CHANGE ABNORMAL ECG PREVIOUS TRACING : 03/18/2016 07.10 Compared to previous tracing, heart rate has increased. DOCTOR: Ta Booth Interpretating Date/Time 03/08/2017 14:17:50
[2017-03-08] MEDS ORDERED: HEPARIN-NS/PF INJ 1,000 ML ONE (14:35)
[2017-03-08] MEDS ORDERED: FAMOTIDINE 20 MG/2 ML VIAL ONE (14:36)
[2017-03-08] MEDS ORDERED: diphenhydrAMINE HCL 50 MG/ML VIAL ONE (14:36)
[2017-03-08] MEDS ORDERED: methylPREDNISolone SOD SUCC 125 MG/2 ML VIAL ONE (14:36)
[2017-03-08] MEDS ORDERED: SODIUM CHLORID 0.9% 500 ML INJ 500 ML ONE (14:36)
[2017-03-08] MEDS ORDERED: NITROGLYCERIN INJ 0 ML ONE (14:37)
[2017-03-08] MEDS ORDERED: HEPARIN SODIUM - IV 10,000 UNITS/10 ML VIAL ONE (14:37)
[2017-03-08] MEDS ORDERED: VERAPAMIL HCL 5 MG/2 ML VIAL ONE (14:37)
[2017-03-08] MEDS ORDERED: SODIUM CHLOR 0.9% 1000 ML INJ 1,000 ML IV SCH (14:48)
[2017-03-08] MEDS ORDERED: VALA1TAB PO (14:50)
[2017-03-08] MEDS ORDERED: METH4PAK PO (14:50)
[2017-03-08] MEDS ORDERED: SENNOSIDES 8.6 MG TAB PO PRN (15:00)
[2017-03-08] MEDS ORDERED: LACTULOSE SYRUP 20 GM/30 ML CUP PO PRN (15:00)
[2017-03-08] MEDS ORDERED: ONDANSETRON HCL 4 MG/2 ML VIAL IVP PRN (15:00)
[2017-03-08] MEDS ORDERED: NALOXONE HCL 0.4 MG/ML AMP IV PUSH PRN (15:00)
[2017-03-08] MEDS ORDERED: ACETAMINOPHEN 325 MG TAB PO PRN (15:00)
[2017-03-08] MEDS ORDERED: MAGNESIUM HYDROXIDE SUSP 30 ML CUP PO PRN (15:00)
[2017-03-08] MEDS ORDERED: SODIUM CHLORIDE 0.9% FLUSH 10 ML FLUSH IV FLUSH PRN (15:00)
[2017-03-08] MEDS ORDERED: BISACODYL 10 MG SUPP RECTAL PRN (15:00)
[2017-03-08] MEDS ORDERED: MIDAZOLAM HCL 2 MG/2 ML VIAL ONE (15:14)
[2017-03-08] MEDS ORDERED: HEPARIN SODIUM - IV 10,000 UNITS/10 ML VIAL IV PUSH PRN ×2 (16:45)
[2017-03-08] MEDS ORDERED: MISC INFORMATION XX ONE (16:45)
[2017-03-08] MEDS ORDERED: oxyCODONE/ACETAMINOPHEN 5 MG/325 MG TAB PO PRN ×2 (16:45)
[2017-03-08] MEDS: valACYclovir HCL 500 MG TAB PO SCH (18:00)
--- NOTE | 2017-03-08 18:24 | MH ---
cc: KEVIN HENSLEY MD DATE OF ADMISSION: 03/08/2017 PRIMARY CARE DOCTOR: . REASON FOR ADMISSION: Chest pain. HISTORY OF PRESENT ILLNESS: The patient is a very pleasant 86-year-old male with significant past medical history of coronary artery disease status post surgery, CABG and the last time he had a stent done last April of 2016. The patient came to the emergency room because of the chest pain. The patient had chest pain yesterday and it was retrosternal with radiation to the left shoulder. Dr. Crow sent the patient to the emergency room today. In the emergency room, the patient had reported pain of 6-7/10 and as per the emergency room physician's documentation, did not have pain. At present, the patient has no pain. He is post cardiac catheterization. He denies any nausea or vomiting or any other associated symptoms. PAST MEDICAL HISTORY: 1. Coronary artery disease. 2. Status post CABG. 3. Status post cardiac catheterization in 2015. 4. Hyperlipidemia. 5. History of stroke in the past. 6. History of AVR. 7. History of left inguinal hernia repair. MEDICATIONS: Reviewed please see the MAR. ALLERGIES: 1. CRAB. 2. IODINE. 3. POTASSIUM IODIDE. 4. POVIDONE IODINE. 5. SODIUM IODIDE. SOCIAL HISTORY The patient does not smoke, drink or do any drugs. FAMILY HISTORY: Dad of a stroke. REVIEW OF SYSTEMS: The review of systems is as described above in the history of present illness and is negative for ten systems. PHYSICAL EXAMINATION: GENERAL: The patient is alert and oriented x3, well-built, well-nourished lying on the bed without any apparent distress. VITAL SIGNS: The vitals show the patient is afebrile, pulse is 71, respiratory rate 18, blood pressure 140/79, pulse oximetry of 99% on two liters. HEAD, EYES, EARS, NOSE, THROAT: Head is normocephalic and atraumatic. Eyes - negative conjunctival icterus. Mouth unremarkable. NECK: The neck is supple. No increased jugular venous distention. Central trachea. RESPIRATORY SYSTEM: Chest has good air entry. No adventitious sounds. CARDIOVASCULAR: S1-S2 audible. I do not hear any S3 gallop. GASTROINTESTINAL: Abdomen soft and nontender. No organomegaly. Positive bowel sounds. MUSCULOSKELETAL: Extremities have no cyanosis or pedal edema appreciated. CENTRAL NERVOUS SYSTEM: Alert and oriented and normal facial features. Moving his extremities. SKIN: Warm and dry. PSYCHIATRIC: Appropriate mood and affect. LABORATORY INVESTIGATIONS: WBCs 12.9, hemoglobin/hematocrit within normal limits. Platelet count 143,000. Sodium 130, chloride 96, GFR 83, random glucose 195. Troponin 0.38. PT, INR and APTT within normal limits. IMAGING STUDIES: Chest x-ray was done which shows no acute cardiopulmonary disease. EKGS: The EKG shows sinus rhythm at a rate of 95 beats per minute with first-degree AV block. ASSESSMENT: 1. Stable angina with non-S-T elevation myocardial infarction. 2. Coronary artery disease status post cardiac catheterization today. 3. 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 4. Hyperlipidemia. 5. Arthritis. 6. Shingles recently on treatment. PLAN: 1. Admit to the PCU. 2. Status post cardiac catheterization. 3. Discussed with Dr. Farias. It seems like as per Dr. Farias similar lesion, unable to do any intervention. Likely medical management. 4. Continue home medications including acyclovir. 5. Monitor platelet count. 6. Hemoglobin A1c for hyperglycemia. Discussed with the patient and his . Discussed with the RN. Condition guarded. Further recommendations will follow as the patient progresses. Kevin Hensley MD JP/JENNA /5:47 PM /6:01 PM
[2017-03-08] MEDS: ATENOLOL 50 MG TAB PO SCH (20:52)
[2017-03-08] MEDS: SODIUM CHLORIDE 0.9% FLUSH 10 ML FLUSH IV FLUSH SCH (20:53)
[2017-03-08] MEDS: DOCUSATE SODIUM 50 MG/SENNA 8.6 MG TAB PO SCH (20:53)
[2017-03-08] MEDS: ATORVASTATIN 40 MG TAB PO SCH (20:53)
[2017-03-09] VITALS (24 sets, daily range): BP systolic 102–144; BP diastolic 56–80; PULSE 53–85; RESP 14–22; TEMP 97.6–98.9; O2SAT 94–99
--- NOTE | 2017-03-09 00:18 | MB ---
cc: YANDEL FINE DO DATE OF CONSULTATION March 08, 2017 REASON FOR CONSULTATION Chest pain, elevated troponin. HISTORY OF PRESENT ILLNESS Arun Shepard is a pleasant 86-year-old male who sees my partner, Dr. Crow, in the office who woke up this morning with chest pain. He states that he has chest pain on-and-off over the past few weeks but this morning it seemed to be worse. He did take a nitro which took the edge off the chest pain but since it did not fully go away he came into the emergency room. On arrival he was found to have a troponin of 0.38 and so I had him transferred to [facility] for consideration of cardiac catheterization. He was placed on a heparin drip. Upon arrival at [facility] he was no longer having chest pain. He also gets short of breath with these episodes. 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 During this he had stenting of his SVG to RCA. He was also noted to have an 80% lesion distal to the anastomosis of his LINDO to LAD. It was felt that this would be a very complex intervention due to the tortuosity of his LINDO to LAD. Notes from the office chart are confusion, some saying they would treat medically, some saying that it was attempted and aborted due to inability to get to the lesion. PAST MEDICAL HISTORY 1. Coronary artery disease. 2. Hyperlipidemia. 3. History of stroke. 4. Hypertension. 5. Hyperlipidemia. 6. Arthritis. 7. Recent pneumonia. PAST SURGICAL HISTORY 1. Coronary artery bypass grafting (around 2000). 2. PCI of SVG to RCA (May 2016) with a drug-eluting stent of unknown size. 3. Previous bare metal stent to the RCA (2006). 4. TAVR with a CoreValve (May 2016 at May). ALLERGIES 1. CRAB. 2. IODINE. MEDICATIONS 1. Valacyclovir 1000 milligrams t.i.d. 2. Plavix 75 milligrams daily. 3. Lipitor 80 milligrams every night. 4. Isosorbide mononitrate 120 milligrams daily. 5. Atenolol 50 milligrams b.i.d. 6. Norvasc 10 milligrams daily. 7. Losartan 50 milligrams daily. 8. Aspirin 81 milligrams daily. 9. Lasix 40 milligrams daily. 10. Methylprednisolone 4 milligrams as directed per Dose Pack. 11. Proscar 5 milligrams daily. FAMILY HISTORY Denies premature coronary artery disease or sudden cardiac within the family. SOCIAL HISTORY He denies tobacco, alcohol or drug abuse. 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 REVIEW OF SYSTEMS 14-systems were reviewed including osteopathic pertinent positives and negatives as above, otherwise negative. PHYSICAL EXAMINATION VITAL SIGNS: Temperature 97.5, heart rate 98, blood pressure 160/73, respirations 20, pulse ox 92% on 2 liters. GENERAL: In general, the patient appears well in no acute distress. Alert, awake and oriented x3. HEENT: Extraocular muscles intact. Mucous membranes moist. NECK: Supple. No JVD at 45 degrees. No carotid bruits heard bilaterally. Carotid upstroke is brisk in nature. HEART: Heart is regular rate and rhythm. Positive first and second heart sounds with a 1/6 crescendo-decrescendo murmur to the right sternal border. LUNGS: Lungs have decreased breath sounds at bilateral bases but no overt wheezes, rales or rhonchi. ABDOMEN: Soft, nontender, nondistended. No organomegaly noted. EXTREMITIES: Show no clubbing, cyanosis or edema. Femoral and distal pulses intact bilaterally. NEUROLOGICALLY: No focal deficits. SKIN: Warm, dry and intact. OSTEOPATHIC: No kyphoscoliosis, lordosis or paraspinal tender points. LABORATORY FINDINGS Hemoglobin 16.0, hematocrit 46.7, platelets 143. Potassium 4.1, BUN 7, creatinine 0.88, troponin 0.38. CARDIOLOGY STUDIES Electrocardiogram (March 08, 2017 at 09:39) sinus rhythm with first degree AV block, left axis deviation, LVH with secondary ST-T wave changes. IMPRESSION 1. Unstable angina. 2. Elevated troponin. 3. Previous aortic stenosis status post CoreValve TAVR (May 2016 at May). 4. History of CABG with extensive coronary artery disease as above, recent drug-eluting stent to the SVG to the RCA with residual disease of the LAD distal to the LINDO anastomosis with significant tortuosity of the LINDO. RECOMMENDATIONS 1. Mr. Shepard presented with elevated troponin and chest pain concerning for coronary insufficiency. Because of this we recommended cardiac catheterization. 2. The risks, benefits, alternatives were discussed with him and he consented for such. 3. Depending on the results we may need to continue to try to treat him medically as best we can as it appears they were concerned for the significance of the tortuosity of his LINDO and ability to reach the lesion. 4. Further recommendations will be made after coronary visualization. Thank you for allowing me to see to Arun Shepard. If there are any questions please do not hesitate to call. Yandel Fine DO VGP/EO /10:55 PM /11:47 PM MTDD
[2017-03-09 05:18] LABS: AUTOMATED NEUTROPHIL # 13.2 TH/MM3 (1.8-7.7); BASOPHIL % 0.1 % (0.0-2.0); HEMATOCRIT 45.3 % (39.0-51.0); HEMO FLAGS DIFF FINAL; LYMPH % 7.8 % (9.0-44.0); LYMPHOCYTE # 1.2 TH/MM3 (1.0-4.8); MEAN CELL VOLUME 89.1 FL (80.0-100.0); MEAN CORPUSCULAR HEMOGLOBIN 30.8 PG (27.0-34.0); MEAN CORPUSCULAR HGB CONC 34.5 % (32.0-36.0); NEUT % 87.1 % (16.0-70.0); PLATELET COUNT 143 TH/MM3 (150-450); RED BLOOD COUNT 5.09 MIL/MM3 (4.50-5.90); RED CELL DISTRIBUTION WIDTH 14.5 % (11.6-17.2); WHITE BLOOD COUNT 15.2 TH/MM3 (4.0-11.0)
[2017-03-09 05:26] LABS: APTT (PATIENT) 25.3 SEC (24.3-30.1)
[2017-03-09 05:37] LABS: ALT (GPT) 23 U/L (12-78); ANION GAP 7 MEQ/L (5-15); AST (GOT) 15 U/L (15-37); BICARBONATE 25.8 MEQ/L (21.0-32.0); BLOOD UREA NITROGEN 10 MG/DL (7-18); CHLORIDE 102 MEQ/L (98-107); GLOMERULAR FILTRATION RATE 107 ML/MIN (>89); POTASSIUM 3.6 MEQ/L (3.5-5.1); SODIUM (NA) 135 MEQ/L (136-145)
[2017-03-09 05:41] LABS: ALKALINE PHOSPHATASE 58 U/L (45-117); TOTAL BILIRUBIN ADULT 0.7 MG/DL (0.2-1.0)
[2017-03-09] MEDS: ISOSORBIDE MONONITRATE 60 MG TAB PO SCH (06:12)
[2017-03-09] MEDS: valACYclovir HCL 500 MG TAB PO SCH ×3 (09:00→17:57)
[2017-03-09] MEDS: CLOPIDOGREL 75 MG TAB PO SCH (09:35)
[2017-03-09] MEDS: DOCUSATE SODIUM 50 MG/SENNA 8.6 MG TAB PO SCH ×2 (09:35→21:04)
[2017-03-09] MEDS: ATENOLOL 50 MG TAB PO SCH ×2 (09:35→21:04)
[2017-03-09] MEDS: FUROSEMIDE 40 MG TAB PO SCH (09:35)
[2017-03-09] MEDS: LOSARTAN 50 MG TAB PO SCH (09:35)
[2017-03-09] MEDS: FINASTERIDE 5 MG TAB PO SCH (09:35)
[2017-03-09] MEDS: ASPIRIN EC 81 MG TABEC PO SCH (09:35)
[2017-03-09] MEDS: SODIUM CHLORIDE 0.9% FLUSH 10 ML FLUSH IV FLUSH SCH ×2 (09:38→21:05)
--- NOTE | 2017-03-09 10:26 | MA ---
cc: YANDEL FINE DO DATE: March 08, 2017 PROCEDURE Coronary angiogram, bypass angiogram, moderate sedation for 65 minutes PREPROCEDURE DIAGNOSIS Elevated troponin, chest pain, history of coronary artery disease with coronary artery bypass graft. POSTPROCEDURE DIAGNOSIS Coronary artery disease, coronary artery bypass graft (two grafts patent) MEDICATIONS 1. Solu-Medrol 125 mg. 2. Pepcid 20 mg. 3. Benadryl 25 mg 4. Versed 0.5 mg. 5. Fentanyl 25 mcg. CONTRAST 150 cc. FLUOROSCOPY TIME: 22.7 minutes SEDATION TIME: Moderate sedation 65 minutes ESTIMATED BLOOD LOSS 10 CC PROCEDURAL SUMMARY Arun Shepard is a pleasant 86-year-old male who sees my partner Dr. Crow in the office and presented with chest pain and elevated troponin. Because of this he was recommended cardiac catheterization. Risks, benefits and alternatives were explained to him he consented as such. He was brought to lab and prepped in the usual sterile fashion. Because of his IV contrast allergy. He was given Solu-Medrol, Benadryl and Pepcid. Right femoral artery was accessed using a modified Seldinger technique and placement of 5-Hebrew sheath. Of note the patient has a high bifurcation and an entry of our sheath appears to be at the ostium of the SFA. Sheath was easily aspirated and flushed. The JR-4 was advanced over a J-wire to the ascending aorta and used for selective angiography of the vein graft to the PDA. At that time I was unable to engage the right coronary artery and so the JR-4 was advanced up the subclavian for selective angiography of the LINDO to LAD. JR-4 was exchanged out for a multipurpose which was then used to get a better angiography of the SVG to RCA. Multipurpose was exchanged out for a JL-4 which was used for selective angiography of the left coronary artery system. This was exchanged out for a JR-4 which was used for selective angiography of the right coronary artery system. At this time the patient's coronary anatomy appears to be similar to his previous cardiac catheterization in May 2006 obtained in [place]. JR-4 was removed over a J-wire. ACT was drawn and was 155, so sheath was pulled and pressure was held for hemostasis. 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 FINDINGS Left main 40% diffuse disease. LAD 99% in the proximal portion with 100% occlusion in the midportion. Left circumflex known occluded from previous cardiac catheterization. RCA diffuse 50% disease in the midportion with a 70% disease in the distal portion before a 100% occlusion. LINDO to LAD extremely tortuous but no significant disease throughout the LINDO. Distal to the anastomosis there appears to be an 80% lesion going into the LAD. LAD fills both antegrade and retrograde with filling of two diagonal vessels. SVG to RCA patent with a stent noted in the distal portion which is patent and no disease distally. IMPRESSION 1. Chest pain concerning for angina. 2. Elevated troponin. 3. Coronary artery disease with history of coronary artery bypass graft as above. 4. History of aortic stenosis status post core valve Tavr. RECOMMENDATIONS 1. Mr. Shepard presented with chest pain concerning for coronary insufficiency. An a elevated troponin. 2. At this time that it appears that his coronary anatomy is similar to that of May 2016 in [place] per records from the office. The patient is somewhat unsure but he felt that they attempted to fix his distal LAD but were unable to through his LINDO due to this significant tortuosity. 3. The patient's son is a physician at the hospital in [place] where he underwent previous the angiogram as well as Tavr. I attempted to call him to get further information on whether that this was attempted or not. 4. At this time we will attempt to treat him medically as best we can and if further chest pain. I will discuss further with the patient, his and his son about possibly attempting PCI of his LINDO and LAD, although the concern is with the tortuosity of the LINDO and the ability to get to this point of the vessels. 5. If during his hospitalization he continues to have chest pain. He should be placed back on a heparin drip. 6. He was noted to come in with accelerated hypertension and we will attempt to increase his medications as this may be a component of his chest pain, elevated troponin. 7. We will obtain an echo to look at his overall left ventricular function, a cardiac structure as well as his Tavr valve. 8. Further recommendations will be made based on hospital course. Thank you for allowing me to see Arun Shepard if there are any questions please do not hesitate to call. Yandel Pugh /12:18 AM /10:12 AM
--- NOTE | 2017-03-09 11:18 | HHI.PR ---
Subjective Remarks Patient was sleeping before interview and examination Has no complaint feeling better Review of system for 10 point system otherwise unremarkable Objective Objective Results - Vital Signs Date Time Temp Pulse Resp B/P (MAP) Pulse Ox O2 Delivery O2 Flow Rate FiO2 03/09/17 10:00 58 03/09/17 09:00 85 03/09/17 08:00 69 03/09/17 07:00 98.9 71 18 144/80 (101) 99 03/09/17 07:00 63 03/09/17 06:00 64 03/09/17 05:00 60 03/09/17 04:00 70 03/09/17 03:00 97.6 59 18 138/70 (92) 97 03/09/17 03:00 69 03/09/17 02:00 56 03/09/17 01:00 62 03/09/17 00:00 68 03/08/17 23:00 97.9 86 22 123/73 (90) 97 03/08/17 23:00 85 03/08/17 22:00 82 03/08/17 21:00 84 03/08/17 20:00 76 03/08/17 19:10 89 03/08/17 19:00 98.2 80 14 133/73 (93) 98 03/08/17 17:30 97.9 73 18 143/81 (101) 98 03/08/17 13:18 97.8 79 18 148/79 (102) 99 03/08/17 12:41 03/08/17 11:18 76 20 115/62 (79) 97 I/O 03/08/17 03/08/17 03/08/17 03/09/17 03/09/17 03/09/17 07:00 15:00 23:00 07:00 15:00 23:00 Intake Total 240 ml 240 ml Output Total 175 ml 625 ml Balance 65 ml -385 ml Intake Oral 240 ml 240 ml Output Urine Total 175 ml 625 ml # Voids 1 Result Diagram: 03/09/17 0344 03/09/17343 Other Results Laboratory Tests Test 03/08/17 21:54 03/09/17 03:44 Troponin I 0.72 0.62 White Blood Count 15.2 Red Blood Count 5.09 Hemoglobin 15.7 Hematocrit 45.3 Mean Corpuscular Volume 89.1 Mean Corpuscular Hemoglobin 30.8 Mean Corpuscular Hemoglobin Concent 34.5 Red Cell Distribution Width 14.5 Platelet Count 143 Mean Platelet Volume 8.1 Neutrophils (%) (Auto) 87.1 Lymphocytes (%) (Auto) 7.8 Monocytes (%) (Auto) 5.0 Eosinophils (%) (Auto) 0.0 Basophils (%) (Auto) 0.1 Neutrophils # (Auto) 13.2 Lymphocytes # (Auto) 1.2 Monocytes # (Auto) 0.8 Eosinophils # (Auto) 0.0 Basophils # (Auto) 0.0 CBC Comment DIFF FINAL Differential Comment Activated Partial Thromboplast Time 25.3 Blood Urea Nitrogen 10 Creatinine 0.70 Random Glucose 114 Total Protein 6.6 Albumin 3.3 Calcium Level 8.7 Alkaline Phosphatase 58 Aspartate Amino Transf (AST/SGOT) 15 Alanine Aminotransferase (ALT/SGPT) 23 Total Bilirubin 0.7 Sodium Level 135 Potassium Level 3.6 Chloride Level 102 Carbon Dioxide Level 25.8 Anion Gap 7 Estimat Glomerular Filtration Rate 107 Physical Exam Physical Exam GENERAL: The patient is alert and oriented x3, well-built, well-nourished lying on the bed without any apparent distress. VITAL SIGNS: Reviewed HEAD, EYES, EARS, NOSE, THROAT: Head is normocephalic and atraumatic. Eyes - negative conjunctival icterus. Mouth unremarkable. NECK: The neck is supple. No increased jugular venous distention. Central trachea. RESPIRATORY SYSTEM: Chest has good air entry. No adventitious sounds. CARDIOVASCULAR: S1-S2 audible. I do not hear any S3 gallop. GASTROINTESTINAL: Abdomen soft and nontender. No organomegaly. Positive bowel sounds. MUSCULOSKELETAL: Extremities have no cyanosis or pedal edema appreciated. CENTRAL NERVOUS SYSTEM: Alert and oriented and normal facial features. Moving his extremities. SKIN: Warm and dry. PSYCHIATRIC: Appropriate mood and affect. A/P Assessment and Plan 1. Stable angina with non-S-T elevation myocardial infarction. 2. Coronary artery disease status post cardiac catheterization today. 3. 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 4. Hyperlipidemia. 5. Arthritis. 6. Shingles recently on treatment. 5. Recently diagnosed with shingles on medication wall traction a steroid PLAN: 1. Seen in PCU. 2. Status post cardiac catheterization. Report reviewed discussed with Dr. Farias yesterday 3. Discussed with Dr. Farias. It seems like as per Dr. Farias similar lesion, unable to do any intervention. Likely medical management. 4. Continue home medications including acyclovir. I'll also start steroid for few days as he was on tapering doses, remaining are last 4 days as seen yesterday 5. Monitor platelet count. 6. Hemoglobin A1c for hyperglycemia. Pending Discussed with the patient. Discussed with the RN. Condition guarded. Further recommendations will follow as the patient progresses. Froylan Hensley MD Mar 09, 2017 11:18
--- NOTE | 2017-03-09 11:49 | PD.CARD.PN ---
Subjective Subjective Remarks Doing well, no complaints Denies CP/SOB Objective Medications Current Medications Medications (Trade) Dose Ordered Sig/Lashon Route Start Time Stop Time Status Last Admin Sodium Chloride 1,000 ml @ 100 mls/hr Q10H IV 03/08/17 14:48 (NS Flush) 2 ml UNSCH PRN IV FLUSH 03/08/17 15:00 (NS Flush) 2 ml BID IV FLUSH 03/08/17 21:00 03/09/17 09:38 (Tylenol) 650 mg Q4H PRN PO 03/08/17 15:00 (Zofran Inj) 4 mg Q6H PRN IVP 03/08/17 15:00 (Narcan Inj) 0.4 mg UNSCH PRN IV PUSH 03/08/17 15:00 (Saray-Colace) 1 tab BID PO 03/08/17 21:00 03/09/17 09:35 (Milk Of Magnesia Liq) 30 ml Q12H PRN PO 03/08/17 15:00 (Senokot) 17.2 mg Q12H PRN PO 03/08/17 15:00 (Dulcolax Supp) 10 mg DAILY PRN RECTAL 03/08/17 15:00 (Lactulose Liq) 30 ml DAILY PRN PO 03/08/17 15:00 (Norvasc) 10 mg DAILY PO 03/09/17 09:00 03/09/17 09:35 (Ecotrin Ec) 81 mg DAILY PO 03/09/17 09:00 03/09/17 09:35 (Tenormin) 50 mg BID PO 03/08/17 21:00 03/09/17 09:35 (Lipitor) 80 mg HS PO 03/08/17 21:00 03/08/17 20:53 (Plavix) 75 mg DAILY PO 03/09/17 09:00 03/09/17 09:35 (Proscar) 5 mg DAILY PO 03/09/17 09:00 03/09/17 09:35 (Lasix) 40 mg DAILY PO 03/09/17 09:00 03/09/17 09:35 (Imdur) 120 mg DAILY@0700 PO 03/09/17 07:00 03/09/17 06:12 (Cozaar) 50 mg DAILY PO 03/09/17 09:00 03/09/17 09:35 (Valtrex) 1,000 mg TID PO 03/08/17 18:00 03/08/17 18:00 (Percocet 5-325 Mg) 1 tab Q4H PRN PO 03/08/17 16:45 (Percocet 5-325 Mg) 2 tab Q4H PRN PO 03/08/17 16:45 (Deltasone) 10 mg DAILY PO 03/09/17 11:30 03/13/17 23:00 Vital Signs / I&O Vital Signs Date Time Temp Pulse Resp B/P (MAP) Pulse Ox O2 Delivery O2 Flow Rate FiO2 03/09/17 10:00 58 03/09/17 09:00 85 03/09/17 08:00 69 03/09/17 07:00 98.9 71 18 144/80 (101) 99 03/09/17 07:00 63 03/09/17 06:00 64 03/09/17 05:00 60 03/09/17 04:00 70 03/09/17 03:00 97.6 59 18 138/70 (92) 97 03/09/17 03:00 69 03/09/17 02:00 56 03/09/17 01:00 62 03/09/17 00:00 68 03/08/17 23:00 97.9 86 22 123/73 (90) 97 03/08/17 23:00 85 03/08/17 22:00 82 03/08/17 21:00 84 03/08/17 20:00 76 03/08/17 19:10 89 03/08/17 19:00 98.2 80 14 133/73 (93) 98 03/08/17 17:30 97.9 73 18 143/81 (101) 98 03/08/17 13:18 97.8 79 18 148/79 (102) 99 03/08/17 12:41 I/O 03/08/17 03/08/17 03/08/17 03/09/17 03/09/17 03/09/17 07:00 15:00 23:00 07:00 15:00 23:00 Intake Total 240 ml 240 ml Output Total 175 ml 625 ml Balance 65 ml -385 ml Intake Oral 240 ml 240 ml Output Urine Total 175 ml 625 ml # Voids 1 Physical Exam GENERAL: NAD, AAOx3 SKIN: Warm and dry. HEAD: Atraumatic. Normocephalic. EYES: Pupils equal and round. No scleral icterus. No injection or drainage. ENT: No nasal bleeding or discharge. Mucous membranes pink and moist. NECK: Trachea midline. No JVD. CARDIOVASCULAR: Regular rate and rhythm. 1/6 crescendo-decrescendo murmur to the RSB RESPIRATORY: No accessory muscle use. Clear to auscultation. Breath sounds equal bilaterally. GASTROINTESTINAL: Abdomen soft, non-tender, nondistended. Hepatic and splenic margins not palpable. MUSCULOSKELETAL: Extremities without clubbing, cyanosis, or edema. No obvious deformities. Right femoral no hematoma/bruit NEUROLOGICAL: Awake and alert. No obvious cranial nerve deficits. Motor grossly within normal limits. Five out of 5 muscle strength in the arms and legs. Normal speech. PSYCHIATRIC: Appropriate mood and affect; insight and judgment normal. Laboratory Laboratory Tests Test 03/08/17 21:54 03/09/17 03:44 Troponin I 0.72 NG/ML 0.62 NG/ML White Blood Count 15.2 TH/MM3 Red Blood Count 5.09 MIL/MM3 Hemoglobin 15.7 GM/DL Hematocrit 45.3 % Mean Corpuscular Volume 89.1 FL Mean Corpuscular Hemoglobin 30.8 PG Mean Corpuscular Hemoglobin Concent 34.5 % Red Cell Distribution Width 14.5 % Platelet Count 143 TH/MM3 Mean Platelet Volume 8.1 FL Neutrophils (%) (Auto) 87.1 % Lymphocytes (%) (Auto) 7.8 % Monocytes (%) (Auto) 5.0 % Eosinophils (%) (Auto) 0.0 % Basophils (%) (Auto) 0.1 % Neutrophils # (Auto) 13.2 TH/MM3 Lymphocytes # (Auto) 1.2 TH/MM3 Monocytes # (Auto) 0.8 TH/MM3 Eosinophils # (Auto) 0.0 TH/MM3 Basophils # (Auto) 0.0 TH/MM3 CBC Comment DIFF FINAL Differential Comment Activated Partial Thromboplast Time 25.3 SEC Blood Urea Nitrogen 10 MG/DL Creatinine 0.70 MG/DL Random Glucose 114 MG/DL Total Protein 6.6 GM/DL Albumin 3.3 GM/DL Calcium Level 8.7 MG/DL Alkaline Phosphatase 58 U/L Aspartate Amino Transf (AST/SGOT) 15 U/L Alanine Aminotransferase (ALT/SGPT) 23 U/L Total Bilirubin 0.7 MG/DL Sodium Level 135 MEQ/L Potassium Level 3.6 MEQ/L Chloride Level 102 MEQ/L Carbon Dioxide Level 25.8 MEQ/L Anion Gap 7 MEQ/L Estimat Glomerular Filtration Rate 107 ML/MIN Assessment and Plan Problem List: (1) CAD (coronary artery disease) ICD Codes: I25.10 - Atherosclerotic heart disease of [place] coronary artery without angina pectoris (2) Elevated troponin ICD Codes: R74.8 - Abnormal levels of other serum enzymes (3) S/P TAVR (transcatheter aortic valve replacement) ICD Codes: Z95.2 - Presence of prosthetic heart valve Assessment and Plan 1) Presented with unstable angina and elevated trop Catheterization showing similar anatomy as the report from May 2016 at [place] Significant lesion in the LAD distal to the LINDO anastomosis with extreme tortuosity of the LINDO Case discussed extensively last night with the patient's son who is a surgeon in [place], who had discussed the case with the interventionalist there originally in May 2016 I have the same concerns as they did, that overall extremely difficult lesion to get to Son would like to see how he does, and if stable over the weekend then attempt further medical management Case discussed with the patient He would prefer attempting further medical management Offered consideration of intervention, but would like to hold off and try Ranexa... if further pain, then will attempt PCI of distal LAD through LINDO 2) Plan to watch 24 hours, possible DC tomorrow 3) Check 2D echo to determine any problems with TAVR Yandel Farias DO Mar 09, 2017 11:49
[2017-03-09] MEDS: predniSONE 10 MG TAB PO SCH (11:56)
[2017-03-09] MEDS: RANOLAZINE 500 MG EXTENDED RELEASE TAB PO SCH ×2 (11:58→21:03)
[2017-03-09 13:09] LABS: HEMOGLOBIN A1b 0.9 %; HEMOGLOBIN Ao 86.5 %; HEMOGLOBIN F 0.8 %; HEMOGLOBIN LA1C 2.3 %; HEMOGLOBIN P3 3.4 %
--- NOTE | 2017-03-09 15:23 | ECHRPT ---
Indication: history of tavr CONCLUSIONS The left ventricular systolic function is normal with an estimated ejection fraction in the range of 55-60%. Normal left ventricular size. The right ventricle was not well visualized. Mild mitral annular calcification. [id number] mitral valve regurgitation. S/P TAVR Aortic valve area is 1.7 cm. Aortic valve mean gradient is 10 mmHg. Aortic valve max gradient 23mmHG Trace aortic valve regurgitation. There is mild tricuspid valve regurgitation. The pulmonary valve is not well visualized. BP: / HR: Rhythm: MEASUREMENTS (Male / Female) Normal Values Technical Quality:Fair 2D ECHO LV Diastolic Diameter PLAX 4.4 cm 4.2 - 5.9 / 3.9 - 5.3 cm LV Systolic Diameter PLAX 3.3 cm IVS Diastolic Thickness 2.0 cm 0.6 - 1.0 / 0.6 - 0.9 cm LVPW Diastolic Thickness 1.1 cm 0.6 - 1.0 / 0.6 - 0.9 cm LV Relative Wall Thickness 0.7 RV Internal Dim ED PLAX 3.8 cm LVOT Diameter 2.2 cm M-MODE Aortic Root Diameter MM 2.5 cm LA Systolic Diameter MM 4.8 cm LA Ao Ratio MM 1.9 DOPPLER AV Peak Velocity 231.7 cm/s AV Peak Gradient 21.5 mmHg AV Mean Gradient 10.0 mmHg AV Velocity Time Integral 49.7 cm LVOT Peak Velocity 94.0 cm/s LVOT Peak Gradient 3.5 mmHg LVOT Velocity Time Integral 21.7 cm AV Area Cont Eq vti 1.7 cm AV Area Cont Eq pk 1.5 cm Mitral E Point Velocity 52.8 cm/s Mitral A Point Velocity 99.2 cm/s Mitral E to A Ratio 0.5 LV E' Lateral Velocity 6.6 cm/s Mitral E to LV E' Lateral Ratio 8.0 LV E' Septal Velocity 6.9 cm/s Mitral E to LV E' Septal Ratio 7.6 TR Peak Velocity 214.0 cm/s TR Peak Gradient 18.3 mmHg Right Atrial Pressure 10.0 mmHg Pulmonary Artery Systolic Pressu 28.3 mmHg Right Ventricular Systolic Press 28.3 mmHg FINDINGS LEFT VENTRICLE The left ventricular systolic function is normal with an estimated ejection fraction in the range of 55-60%. Normal left ventricular size. RIGHT VENTRICLE The right ventricle was not well visualized. Normal right ventricular size and systolic function. LEFT ATRIUM The left atrial size is normal. RIGHT ATRIUM The right atrial size is normal. ATRIAL SEPTUM Normal atrial septal thickness without atrial level shunting by limited color doppler interrogation. AORTA The aortic root and proximal ascending aorta are normal in size on limited imaging. MITRAL VALVE Mild mitral annular calcification. [id number] mitral valve regurgitation. AORTIC VALVE S/P TAVR Aortic valve area is 1.7 cm. Aortic valve mean gradient is 10 mmHg. Aortic valve max gradient 23mmHG Trace aortic valve regurgitation. TRICUSPID VALVE Structurally normal tricuspid valve. There is mild tricuspid valve regurgitation. PULMONARY VALVE The pulmonary valve is not well visualized. No pulmonary valve regurgitation or stenosis. VESSELS The inferior vena cava is normal in size. PERICARDIUM No pericardial effusion. Mesfin Harrington MD (Electronically Signed) Final Date:09 March 2017 15:22
[2017-03-09] MEDS: ATORVASTATIN 40 MG TAB PO SCH (21:04)
[2017-03-10] VITALS (16 sets, daily range): BP systolic 102–126; BP diastolic 56–73; PULSE 50–66; RESP 18–20; TEMP 98.2–98.6; O2SAT 93–95
[2017-03-10] MEDS: ISOSORBIDE MONONITRATE 60 MG TAB PO SCH (06:35)
[2017-03-10] MEDS: valACYclovir HCL 500 MG TAB PO SCH ×2 (09:30→12:50)
[2017-03-10] MEDS: FINASTERIDE 5 MG TAB PO SCH (09:30)
[2017-03-10] MEDS: predniSONE 10 MG TAB PO SCH (09:30)
[2017-03-10] MEDS: RANOLAZINE 500 MG EXTENDED RELEASE TAB PO SCH (09:31)
[2017-03-10] MEDS: FUROSEMIDE 40 MG TAB PO SCH (09:31)
[2017-03-10] MEDS: ATENOLOL 50 MG TAB PO SCH (09:31)
[2017-03-10] MEDS: ASPIRIN EC 81 MG TABEC PO SCH (09:31)
[2017-03-10] MEDS: CLOPIDOGREL 75 MG TAB PO SCH (09:31)
[2017-03-10] MEDS: DOCUSATE SODIUM 50 MG/SENNA 8.6 MG TAB PO SCH (09:31)
[2017-03-10] MEDS: LOSARTAN 50 MG TAB PO SCH (09:31)
[2017-03-10] MEDS: SODIUM CHLORIDE 0.9% FLUSH 10 ML FLUSH IV FLUSH SCH (09:32)
--- NOTE | 2017-03-10 10:41 | PD.CARD.PN ---
Subjective Subjective Remarks Doing well, no complaints Denies CP/SOB Ambulating the room Objective Medications Current Medications Medications (Trade) Dose Ordered Sig/Lashon Route Start Time Stop Time Status Last Admin Sodium Chloride 1,000 ml @ 100 mls/hr Q10H IV 03/08/17 14:48 (NS Flush) 2 ml UNSCH PRN IV FLUSH 03/08/17 15:00 (NS Flush) 2 ml BID IV FLUSH 03/08/17 21:00 03/10/17 09:32 (Tylenol) 650 mg Q4H PRN PO 03/08/17 15:00 (Zofran Inj) 4 mg Q6H PRN IVP 03/08/17 15:00 (Narcan Inj) 0.4 mg UNSCH PRN IV PUSH 03/08/17 15:00 (Saray-Colace) 1 tab BID PO 03/08/17 21:00 03/10/17 09:31 (Milk Of Magnesia Liq) 30 ml Q12H PRN PO 03/08/17 15:00 (Senokot) 17.2 mg Q12H PRN PO 03/08/17 15:00 (Dulcolax Supp) 10 mg DAILY PRN RECTAL 03/08/17 15:00 (Lactulose Liq) 30 ml DAILY PRN PO 03/08/17 15:00 (Norvasc) 10 mg DAILY PO 03/09/17 09:00 03/10/17 09:31 (Ecotrin Ec) 81 mg DAILY PO 03/09/17 09:00 03/10/17 09:31 (Tenormin) 50 mg BID PO 03/08/17 21:00 03/10/17 09:31 (Lipitor) 80 mg HS PO 03/08/17 21:00 03/09/17 21:04 (Plavix) 75 mg DAILY PO 03/09/17 09:00 03/10/17 09:31 (Proscar) 5 mg DAILY PO 03/09/17 09:00 03/10/17 09:30 (Lasix) 40 mg DAILY PO 03/09/17 09:00 03/10/17 09:31 (Imdur) 120 mg DAILY@0700 PO 03/09/17 07:00 03/10/17 06:35 (Cozaar) 50 mg DAILY PO 03/09/17 09:00 03/10/17 09:31 (Valtrex) 1,000 mg TID PO 03/08/17 18:00 03/10/17 09:30 (Percocet 5-325 Mg) 1 tab Q4H PRN PO 03/08/17 16:45 (Percocet 5-325 Mg) 2 tab Q4H PRN PO 03/08/17 16:45 (Deltasone) 10 mg DAILY PO 03/09/17 11:30 03/13/17 23:00 03/10/17 09:30 (Ranexa) 500 mg Q12HR PO 03/09/17 12:00 03/10/17 09:31 Vital Signs / I&O Vital Signs Date Time Temp Pulse Resp B/P (MAP) Pulse Ox O2 Delivery O2 Flow Rate FiO2 03/10/17 06:00 52 03/10/17 05:00 50 03/10/17 04:00 52 03/10/17 03:00 56 03/10/17 03:00 98.4 63 20 126/73 (90) 93 03/10/17 02:00 56 03/10/17 01:00 56 03/10/17 00:00 52 03/09/17 23:00 54 03/09/17 23:00 98.0 66 22 135/80 (98) 94 03/09/17 22:00 58 03/09/17 21:00 66 03/09/17 20:00 64 03/09/17 19:00 98.3 65 22 102/58 (73) 94 03/09/17 19:00 77 03/09/17 18:00 75 03/09/17 17:00 74 03/09/17 16:00 68 03/09/17 15:00 71 03/09/17 15:00 97.6 71 16 139/77 (97) 97 03/09/17 14:00 62 03/09/17 13:00 65 03/09/17 12:00 74 03/09/17 11:00 98.3 53 14 128/56 (80) 96 03/09/17 11:00 53 I/O 03/09/17 03/09/17 03/09/17 03/10/17 03/10/17 03/10/17 07:00 15:00 23:00 07:00 15:00 23:00 Intake Total 240 ml 650 ml 240 ml Output Total 625 ml 800 ml Balance -385 ml -150 ml 240 ml Intake Oral 240 ml 650 ml 240 ml Output Urine Total 625 ml 800 ml # Voids 3 Physical Exam GENERAL: NAD, AAOx3 SKIN: Warm and dry. HEAD: Atraumatic. Normocephalic. EYES: Pupils equal and round. No scleral icterus. No injection or drainage. ENT: No nasal bleeding or discharge. Mucous membranes pink and moist. NECK: Trachea midline. No JVD. CARDIOVASCULAR: Regular rate and rhythm. 1/6 crescendo-decrescendo murmur to the RSB RESPIRATORY: No accessory muscle use. Clear to auscultation. Breath sounds equal bilaterally. GASTROINTESTINAL: Abdomen soft, non-tender, nondistended. Hepatic and splenic margins not palpable. MUSCULOSKELETAL: Extremities without clubbing, cyanosis, or edema. No obvious deformities. Right femoral no hematoma/bruit NEUROLOGICAL: Awake and alert. No obvious cranial nerve deficits. Motor grossly within normal limits. Five out of 5 muscle strength in the arms and legs. Normal speech. PSYCHIATRIC: Appropriate mood and affect; insight and judgment normal. Laboratory Laboratory Tests Test 03/08/17 09:50 03/08/17 21:54 03/09/17 03:44 White Blood Count 12.9 TH/MM3 (4.0-11.0) 15.2 TH/MM3 (4.0-11.0) Red Blood Count 5.22 MIL/MM3 (4.50-5.90) 5.09 MIL/MM3 (4.50-5.90) Hemoglobin 16.0 GM/DL (13.0-17.0) 15.7 GM/DL (13.0-17.0) Hematocrit 46.7 % (39.0-51.0) 45.3 % (39.0-51.0) Mean Corpuscular Volume 89.3 FL (80.0-100.0) 89.1 FL (80.0-100.0) Mean Corpuscular Hemoglobin 30.5 PG (27.0-34.0) 30.8 PG (27.0-34.0) Mean Corpuscular Hemoglobin Concent 34.2 % (32.0-36.0) 34.5 % (32.0-36.0) Red Cell Distribution Width 14.2 % (11.6-17.2) 14.5 % (11.6-17.2) Platelet Count 143 TH/MM3 (150-450) 143 TH/MM3 (150-450) Mean Platelet Volume 7.4 FL (7.0-11.0) 8.1 FL (7.0-11.0) Neutrophils (%) (Auto) 87.4 % (16.0-70.0) 87.1 % (16.0-70.0) Lymphocytes (%) (Auto) 8.1 % (9.0-44.0) 7.8 % (9.0-44.0) Monocytes (%) (Auto) 3.8 % (0.0-8.0) 5.0 % (0.0-8.0) Eosinophils (%) (Auto) 0.0 % (0.0-4.0) 0.0 % (0.0-4.0) Basophils (%) (Auto) 0.7 % (0.0-2.0) 0.1 % (0.0-2.0) Neutrophils # (Auto) 11.2 TH/MM3 (1.8-7.7) 13.2 TH/MM3 (1.8-7.7) Lymphocytes # (Auto) 1.0 TH/MM3 (1.0-4.8) 1.2 TH/MM3 (1.0-4.8) Monocytes # (Auto) 0.5 TH/MM3 (0-0.9) 0.8 TH/MM3 (0-0.9) Eosinophils # (Auto) 0.0 TH/MM3 (0-0.4) 0.0 TH/MM3 (0-0.4) Basophils # (Auto) 0.1 TH/MM3 (0-0.2) 0.0 TH/MM3 (0-0.2) CBC Comment DIFF FINAL DIFF FINAL Differential Comment Prothrombin Time 11.3 SEC (9.8-11.6) Prothromb Time International Ratio 1.0 RATIO Activated Partial Thromboplast Time 26.1 SEC (24.3-30.1) 25.3 SEC (24.3-30.1) Blood Urea Nitrogen 7 MG/DL (7-18) 10 MG/DL (7-18) Creatinine 0.88 MG/DL (0.60-1.30) 0.70 MG/DL (0.60-1.30) Random Glucose 195 MG/DL (74-106) 114 MG/DL (74-106) Calcium Level 9.0 MG/DL (8.5-10.1) 8.7 MG/DL (8.5-10.1) Magnesium Level 2.1 MG/DL (1.5-2.5) Sodium Level 130 MEQ/L (136-145) 135 MEQ/L (136-145) Potassium Level 4.1 MEQ/L (3.5-5.1) 3.6 MEQ/L (3.5-5.1) Chloride Level 96 MEQ/L (98-107) 102 MEQ/L (98-107) Carbon Dioxide Level 24.3 MEQ/L (21.0-32.0) 25.8 MEQ/L (21.0-32.0) Anion Gap 10 MEQ/L (5-15) 7 MEQ/L (5-15) Estimat Glomerular Filtration Rate 83 ML/MIN (>89) 107 ML/MIN (>89) Total Creatine Kinase 88 U/L (39-308) Troponin I 0.38 NG/ML (0.02-0.05) 0.72 NG/ML (0.02-0.05) 0.62 NG/ML (0.02-0.05) Total Protein 6.6 GM/DL (6.4-8.2) Albumin 3.3 GM/DL (3.4-5.0) Alkaline Phosphatase 58 U/L (45-117) Aspartate Amino Transf (AST/SGOT) 15 U/L (15-37) Alanine Aminotransferase (ALT/SGPT) 23 U/L (12-78) Total Bilirubin 0.7 MG/DL (0.2-1.0) Hemoglobin A1c 5.0 % (4.3-6.0) Assessment and Plan Problem List: (1) CAD (coronary artery disease) ICD Codes: I25.10 - Atherosclerotic heart disease of [place] coronary artery without angina pectoris (2) Elevated troponin ICD Codes: R74.8 - Abnormal levels of other serum enzymes (3) S/P TAVR (transcatheter aortic valve replacement) ICD Codes: Z95.2 - Presence of prosthetic heart valve Assessment and Plan 1) Presented with unstable angina and elevated trop Catheterization showing similar anatomy as the report from May 2016 at [place] Significant lesion in the LAD distal to the LINDO anastomosis with extreme tortuosity of the LINDO Case discussed extensively with the patient's son who is a surgeon in [place], who had discussed the case with the interventionalist there originally in May 2016 I have the same concerns as they did, that overall extremely difficult lesion to get to Son would like to see how he does, and if stable over the weekend then attempt further medical management Case discussed with the patient He would prefer attempting further medical management Offered consideration of intervention, but would like to hold off and try Ranexa... if further pain, then will attempt PCI of distal LAD through LINDO 2) EF 55-60%. [id number] mitral valve regurgitation. S/P TAVR Aortic valve area is 1.7 cm. Aortic valve mean gradient is 10 mmHg. Aortic valve max gradient 23mmHG Trace aortic valve regurgitation. 3) Appears to be doing well Will have the patient ambulate this morning, will stop back and see and most likely plan for discharge today If chest pain in the future, will see about difficult PCI to the distal LAD Yandel Farias DO Mar 10, 2017 10:41
--- NOTE | 2017-03-10 12:15 | HHI.PR ---
Subjective Remarks Patient has no complaint no pain no sob no diaphoresis no LOPEZ did walk without any problem feeling better Review of system for 10 point system otherwise unremarkable Objective Objective Results - Vital Signs Date Time Temp Pulse Resp B/P (MAP) Pulse Ox O2 Delivery O2 Flow Rate FiO2 03/10/17 12:04 98.2 62 20 102/56 (71) 94 03/10/17 10:00 56 03/10/17 09:00 56 03/10/17 08:00 52 03/10/17 07:15 53 03/10/17 07:15 98.6 57 18 117/61 (79) 95 03/10/17 06:00 52 03/10/17 05:00 50 03/10/17 04:00 52 03/10/17 03:00 56 03/10/17 03:00 98.4 63 20 126/73 (90) 93 03/10/17 02:00 56 03/10/17 01:00 56 03/10/17 00:00 52 03/09/17 23:00 54 03/09/17 23:00 98.0 66 22 135/80 (98) 94 03/09/17 22:00 58 03/09/17 21:00 66 03/09/17 20:00 64 03/09/17 19:00 98.3 65 22 102/58 (73) 94 03/09/17 19:00 77 03/09/17 18:00 75 03/09/17 17:00 74 03/09/17 16:00 68 03/09/17 15:00 71 03/09/17 15:00 97.6 71 16 139/77 (97) 97 03/09/17 14:00 62 03/09/17 13:00 65 I/O 03/09/17 03/09/17 03/09/17 03/10/17 03/10/17 03/10/17 06:59 14:59 22:59 06:59 14:59 22:59 Intake Total 240 ml 650 ml 240 ml Output Total 625 ml 800 ml Balance -385 ml -150 ml 240 ml Intake Oral 240 ml 650 ml 240 ml Output Urine Total 625 ml 800 ml # Voids 3 Result Diagram: 03/09/1734303/09/17343 Physical Exam Physical Exam GENERAL: The patient is alert and oriented x3, well-built, well-nourished lying on the bed without any apparent distress. VITAL SIGNS: Reviewed HEAD, EYES, EARS, NOSE, THROAT: Head is normocephalic and atraumatic. Eyes - negative conjunctival icterus. Mouth unremarkable. NECK: The neck is supple. No increased jugular venous distention. Central trachea. RESPIRATORY SYSTEM: Chest has good air entry. No adventitious sounds. CARDIOVASCULAR: S1-S2 audible. I do not hear any S3 gallop. GASTROINTESTINAL: Abdomen soft and nontender. No organomegaly. Positive bowel sounds. MUSCULOSKELETAL: Extremities have no cyanosis or pedal edema appreciated. CENTRAL NERVOUS SYSTEM: Alert and oriented and normal facial features. Moving his extremities. SKIN: Warm and dry. PSYCHIATRIC: Appropriate mood and affect. A/P Assessment and Plan 1. Stable angina with non-S-T elevation myocardial infarction. 2. Coronary artery disease status post cardiac catheterization today. 3. 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 4. Hyperlipidemia. 5. Arthritis. 6. Shingles recently on treatment. 5. Recently diagnosed with shingles on medication wall traction a steroid PLAN: 1. Seen in PCU. 2. Status post cardiac catheterization. Report reviewed discussed with Dr. Farias today 3. Discussed with Dr. Farias. It seems like as per Dr. Farias similar lesion, unable to do any intervention. Likely medical management. ok todc dtoday on ranexa as pt is doing good 4. Continue home medications including acyclovir. I'll also start steroid for few days as he was on tapering doses, remaining are last 4 days as seen yesterday 5. Monitor platelet count. 6. Hemoglobin A1c wnl Discussed with the patient. Discussed with the RN. Condition overall stable plan for dc home to follow pcp and cardiology as outpt Froylan Hensley MD Mar 10, 2017 12:14
[2017-03-10] MEDS ORDERED: RANO500 PO (12:16)
[2017-03-10] MEDS ORDERED: IOHEXOL 350 MG/ML 100 ML BTL (for Cath Lab) OTHER ONE (15:00)
[2017-03-10] MEDS ORDERED: IOHEXOL 350 MG/ML 50 ML BTL (for Cath Lab) OTHER ONE (15:00)
== END 2017-03-10 15:01 | disposition home or self-care (01) ==
LOC: PHED 09:34 → INTOOBSV 11:50 → PHEDA 11:50 → UNDOADMOB 11:50 → PHEDA 17:02 → HCIN 17:02 → UNDODISOB 03-10 15:01
PROVIDERS: ADMIT Specialist; ATTEND Specialist
DX: I21.4 Non-ST elevation (NSTEMI) myocardial infarction (principal); I25.118 Atherosclerotic heart disease of native coronary artery with other forms of angina pectoris; E78.5 Hyperlipidemia, unspecified; R73.9 Hyperglycemia, unspecified; B02.9 Zoster without complications; I35.0 Nonrheumatic aortic (valve) stenosis; I10 Essential (primary) hypertension; Z79.01 Long term (current) use of anticoagulants; Z79.82 Long term (current) use of aspirin; Z95.1 Presence of aortocoronary bypass graft; Z86.73 Personal history of transient ischemic attack (TIA), and cerebral infarction without residual deficits; Z95.2 Presence of prosthetic heart valve
CPT/HCPCS: 71010; 80048; 80053; 82550; 83036; 83735; 84484; 85002; 85025; 85610; 85730; 93005; 93306; 93454; 96372; 96374; 96375; 99285; C1769; C1893; G0378; J1200; J1644; J2250; J2930; J3010; J7040; J7512; Q9967

== ENCOUNTER → 2017-07-31 | Outpatient (CLI) | payer MEDICARE, OTHER ==
[~2017-07-31] MED LIST changes: -ATOR1TAB18 PO; +ATOR80TA45 PO; -CEFU1TAB20 PO; +METH4PAK PO; -OXYGENDME NAS.CANULA; -PRED-503 PO; +RANO500 PO; +VALA1TAB PO
[2017-07-31 11:00] LABS: BILIRUBIN, URINE NEG (NEG); BLOOD, URINE TRACE (NEG); GLUCOSE,URINE NEG (NEG); KETONE, URINE NEG (NEG); MUCUS URINE FEW /lpf (OCC); NITRITE,URINE NEG (NEG); PH, URINE 7.5 (5.0-8.5); SQUAMOUS EPITHELIAL CELL URINE <1 /hpf (0-5); URINE COLOR YELLOW (YELLW/STRAW); URINE LEUKOCYTE ESTERASE NEG (NEG)
[2017-07-31 11:12] LABS: AUTOMATED NEUTROPHIL # 5.6 TH/MM3 (1.8-7.7); BASOPHIL % 0.5 % (0.0-2.0); EOSINOPHIL # 0.4 TH/MM3 (0-0.4); EOSINOPHIL % 5.1 % (0.0-4.0); HEMATOCRIT 43.2 % (39.0-51.0); HEMOGLOBIN 15.4 GM/DL (13.0-17.0); LYMPH % 13.4 % (9.0-44.0); LYMPHOCYTE # 1.1 TH/MM3 (1.0-4.8); MEAN CELL VOLUME 87.8 FL (80.0-100.0); MEAN CORPUSCULAR HEMOGLOBIN 31.4 PG (27.0-34.0); MEAN CORPUSCULAR HGB CONC 35.8 % (32.0-36.0); MEAN PLATELET VOLUME 7.6 FL (7.0-11.0); MONO % 10.4 % (0.0-8.0); MONOCYTE # 0.8 TH/MM3 (0-0.9); NEUT % 70.6 % (16.0-70.0); PLATELET COUNT 162 TH/MM3 (150-450); RED BLOOD COUNT 4.92 MIL/MM3 (4.50-5.90); RED CELL DISTRIBUTION WIDTH 13.5 % (11.6-17.2)
[2017-07-31 11:16] LABS: ALBUMIN 3.4 GM/DL (3.4-5.0); AST (GOT) 17 U/L (15-37); BICARBONATE 28.9 MEQ/L (21.0-32.0); BLOOD UREA NITROGEN 6 MG/DL (7-18); CALCIUM 8.8 MG/DL (8.5-10.1); CHLORIDE 99 MEQ/L (98-107); CHOLESTEROL 117 MG/DL (120-200); CREATININE 0.71 MG/DL (0.60-1.30); GLOMERULAR FILTRATION RATE 105 ML/MIN (>89); GLUCOSE,FASTING 86 MG/DL (74-99); SODIUM (NA) 133 MEQ/L (136-145); TRIGLYCERIDES 83 MG/DL (42-150)
[2017-07-31 11:19] LABS: ALKALINE PHOSPHATASE 71 U/L (45-117); ALT (GPT) 17 U/L (12-78); CHOLESTEROL/ HDL RATIO 2.56 RATIO; HDL CHOLESTEROL 45.7 MG/DL (40.0-60.0); LDL CHOLESTEROL 55 MG/DL (0-99); TOTAL BILIRUBIN ADULT 1.3 MG/DL (0.2-1.0); TOTAL PROTEIN 6.7 GM/DL (6.4-8.2)
[2017-07-31 15:48] LABS: HEMOGLOBIN A1C 5.2 % (4.3-6.0)
== END ==
LOC: PLAB 09:06
PROVIDERS: ATTEND Internal Medicine Interventional Cardiology
DX: E78.5 Hyperlipidemia, unspecified (principal); R73.01 Impaired fasting glucose; I11.9 Hypertensive heart disease without heart failure; I25.119 Atherosclerotic heart disease of native coronary artery with unspecified angina pectoris
CPT/HCPCS: 36415; 80053; 80061; 81001; 83036; 84443; 85025

== ENCOUNTER → 2017-08-14 | Outpatient (CLI) | payer MEDICARE, OTHER ==
[2017-08-14 18:17] LABS: CALCIUM 8.6 MG/DL (8.5-10.1); CREATININE 0.89 MG/DL (0.60-1.30)
== END ==
LOC: PLAB 13:18
DX: E78.5 Hyperlipidemia, unspecified (principal)
CPT/HCPCS: 36415; 80048

== ENCOUNTER 2017-12-30 11:18 | Inpatient (IN) ==
--- NOTE | 2017-12-30 11:32 | ED ---
HPI General Chief complaint: Weakness Stated complaint: Gen weakness Time Seen by Provider: 12/30/17 11:29 Source: patient, family and EMS Mode of arrival: EMS Limitations: no limitations History of Present Illness HPI Narrative: 87-year-old male patient with history of hypertension, previous [place], CVA, aortic valve replacement, asbestosis, presents to the ER today brought in by EMS because over the last day he has been having general weakness. He denies any chest pains, trouble breathing, abdominal pain, vomiting, or other symptoms. He states the last time he felt this way he had pneumonia. Related Data Home Medications Medication Instructions Recorded Confirmed amlodipine 10 mg PO DAILY 12/30/17 12/30/17 aspirin 81 mg PO DAILY 12/30/17 12/30/17 atorvastatin 80 mg PO DAILY 12/30/17 12/30/17 clopidogrel [Plavix] 75 mg PO DAILY 12/30/17 12/30/17 finasteride [Proscar] 5 mg PO DAILY 12/30/17 12/30/17 furosemide 20 mg PO DAILY 12/30/17 12/30/17 isosorbide mononitrate 120 mg PO DAILY 12/30/17 12/30/17 losartan 50 mg PO DAILY 12/30/17 12/30/17 nitroglycerin 0.4 mg SUBLINGUAL Q5-15M PRN 12/30/17 12/30/17 ranolazine [Ranexa] 500 mg PO Q12H 12/30/17 12/30/17 Allergies Allergy/AdvReac Type Severity Reaction Status Date / Time iodine Allergy Severe Rash Verified 12/30/17 12:43 potassium iodide Allergy Severe Vomiting Verified 12/30/17 12:43 povidone-iodine Allergy Severe Rash Verified 12/30/17 12:43 sodium iodide Allergy Severe Rash Verified 12/30/17 12:43 crab Allergy Mild Hives Verified 12/30/17 12:43 Review of Systems Except as stated in HPI: all other systems reviewed are negative PMFSH History History Provided By: Patient Medical History Medical History Bradycardia (Acute) CAD (coronary artery disease) (Acute) COPD (chronic obstructive pulmonary disease) (Acute) Hypercholesterolemia (Acute) Hypertension (Acute) PNA (pneumonia) (Acute) Surgical History Surgical History Aortic valve replaced (Acute) History of angioplasty (Acute) Hx of CABG (Acute) Social History Social History Substance History: No History of Abuse Smoking Status: Never smoker How Often Do You Have a Drink Containing Alcohol: Monthly or less Recent Travel in [facility] within the Last 8 Weeks: No Recent Out of Country Travel within the Last 8 Weeks: No Exam Narrative Exam Narrative: GENERAL: Well-developed elderly white male patient currently in mild distress. Awake and oriented 3. SKIN: Focused skin assessment warm/dry. HEAD: Atraumatic. Normocephalic. EYES: Pupils equal and round. No scleral icterus. No injection or drainage. ENT: No nasal bleeding or discharge. Mucous membranes pink and moist. NECK: Trachea midline. No JVD. CARDIOVASCULAR: Slow and irregularly irregular. No murmur appreciated. RESPIRATORY: No accessory muscle use. Basilar crackles bilaterally. Breath sounds equal bilaterally. GASTROINTESTINAL: Abdomen soft, non-tender, nondistended. Hepatic and splenic margins not palpable. MUSCULOSKELETAL: No obvious deformities. No clubbing. No cyanosis. No edema. NEUROLOGICAL: Awake and alert. No obvious cranial nerve deficits. Motor grossly within normal limits. Normal speech. PSYCHIATRIC: Appropriate mood and affect; insight and judgment normal. Course Initial Documented Vital Signs Temperature 98.7 F 12/30/17 11:27 Pulse Rate 48 L 12/30/17 11:27 Respiratory Rate 24 12/30/17 11:27 Blood Pressure 144/66 H 12/30/17 11:27 Pulse Oximetry 97 12/30/17 11:27 Last Documented Vital Signs Temperature 98.7 F 12/30/17 11:27 Pulse Rate 54 L 12/30/17 11:32 Respiratory Rate 25 H 12/30/17 11:32 Blood Pressure 144/66 H 12/30/17 11:32 Pulse Oximetry 97 12/30/17 11:32 Medical Decision Making MDM Narrative Medical decision making narrative: EKG initially shows symptomatic bradycardia with rates in the 40s. However, in the ER his heart rate went up to the 80s on its own. He has no chest pains. Troponin is mildly elevated at 0.3, but his troponins have always been elevated on evaluation. The rest of the lab work was fairly unremarkable. Chest x-ray did not show signs of acute processes. It did show some pulmonary fibrosis. Case was then discussed with Dr. Paulino for admission for further evaluation. Differential Diagnosis Differential Diagnosis: Dysrhythmias versus electrolyte abnormalities versus sepsis versus pneumonia versus CHF Lab Data Result diagrams: 12/30/17 11:35 12/30/17 11:35 Lab Results 12/30/17 12/30/17 12/30/17 Range/Units 11:35 11:35 11:35 WBC 17.6 H (4.0-11.0) th/mm3 RBC 4.61 (4.50-5.90) mil/mm3 Hgb 14.4 (13.0-17.0) gm/dL Hct 41.5 (39.0-51.0) % MCV 90.1 (80.0-100.0) fL MCH 31.3 (27.0-34.0) pg MCHC 34.7 (32.0-36.0) % RDW 13.9 (11.6-17.2) % Plt Count 161 (150-450) th/mm3 MPV 8.2 (7.0-11.0) fL Neut % (Auto) 88.1 H (16.0-70.0) % Lymph % (Auto) 4.4 L (9.0-44.0) % [place] % (Auto) 7.3 (0.0-8.0) % Eos % (Auto) 0.1 (0.0-4.0) % Baso % (Auto) 0.1 (0.0-2.0) % Neut # (Auto) 15.5 H (1.8-7.7) th/mm3 Lymph # (Auto) 0.8 L (1.0-4.8) th/mm3 [place] # (Auto) 1.3 H (0.0-0.9) th/mm3 Eos # (Auto) 0.0 (0.0-0.4) th/mm3 Baso # (Auto) 0.0 (0.0-0.2) th/mm3 WBC Differential . Differential Comment Auto diff final PT 11.7 H (9.8-11.6) sec INR 1.2 Ratio APTT 27.5 (24.3-30.1) sec Sodium (136-145) meq/L Potassium (3.5-5.1) meq/L Chloride (98-107) meq/L Carbon Dioxide (21.0-32.0) meq/L Anion Gap (5-15) meq/L BUN (7-18) mg/dL Creatinine (0.60-1.30) mg/dL Estimated GFR (>89) mL/min Random Glucose (74-106) mg/dL Calcium (8.5-10.1) mg/dL Total Bilirubin (0.2-1.0) mg/dL AST (15-37) U/L ALT (12-78) U/L Alkaline Phosphatase (45-117) U/L Troponin I 0.30 H (0.02-0.05) ng/mL B-Natriuretic Peptide (0-100) pg/mL Total Protein (6.4-8.2) g/dL Albumin (3.4-5.0) g/dL 12/30/17 12/30/17 Range/Units 11:35 11:35 WBC (4.0-11.0) th/mm3 RBC (4.50-5.90) mil/mm3 Hgb (13.0-17.0) gm/dL Hct (39.0-51.0) % MCV (80.0-100.0) fL MCH (27.0-34.0) pg MCHC (32.0-36.0) % RDW (11.6-17.2) % Plt Count (150-450) th/mm3 MPV (7.0-11.0) fL Neut % (Auto) (16.0-70.0) % Lymph % (Auto) (9.0-44.0) % [place] % (Auto) (0.0-8.0) % Eos % (Auto) (0.0-4.0) % Baso % (Auto) (0.0-2.0) % Neut # (Auto) (1.8-7.7) th/mm3 Lymph # (Auto) (1.0-4.8) th/mm3 [place] # (Auto) (0.0-0.9) th/mm3 Eos # (Auto) (0.0-0.4) th/mm3 Baso # (Auto) (0.0-0.2) th/mm3 WBC Differential Differential Comment PT (9.8-11.6) sec INR Ratio APTT (24.3-30.1) sec Sodium 135 L (136-145) meq/L Potassium 3.5 (3.5-5.1) meq/L Chloride 101 (98-107) meq/L Carbon Dioxide 25.6 (21.0-32.0) meq/L Anion Gap 8 (5-15) meq/L BUN 8 (7-18) mg/dL Creatinine 0.92 (0.60-1.30) mg/dL Estimated GFR 78 L (>89) mL/min Random Glucose 99 (74-106) mg/dL Calcium 8.7 (8.5-10.1) mg/dL Total Bilirubin 1.7 H (0.2-1.0) mg/dL AST 15 (15-37) U/L ALT 13 (12-78) U/L Alkaline Phosphatase 66 (45-117) U/L Troponin I (0.02-0.05) ng/mL B-Natriuretic Peptide 190 H (0-100) pg/mL Total Protein 6.4 (6.4-8.2) g/dL Albumin 3.2 L (3.4-5.0) g/dL Imaging Data Radiologist's impression: Chest X-Ray 12/30/17 11:29 CONCLUSION: Bilateral mostly basilar lung fibrosis with volume loss. Elevated right hemidiaphragm with interposed bowel between right hemidiaphragm and liver. Previous sternotomy. Discharge Plan Discharge Disposition Patient Disposition: 30 Still Patient Discharge Condition Condition: Stable Discharge Details Anticipated Discharge Date: 12/30/17 Diagnosis: Bradycardia, Elevated troponin Physicians Team ED Provider: Lisy Ritchie Primary Care Provider: UNKNOWN, Rxs /Orders / Referrals /Forms Prescriptions: No Action losartan 50 mg Tablet 50 mg PO DAILY RF: 0 atorvastatin 80 mg Tablet 80 mg PO DAILY RF: 0 clopidogrel [Plavix] 75 mg Tablet 75 mg PO DAILY RF: 0 isosorbide mononitrate 120 mg Tablet Extended Release 24 Hr 120 mg PO DAILY RF: 0 amlodipine 10 mg Tablet 10 mg PO DAILY RF: 0 nitroglycerin 0.4 mg Tablet, Sublingual 0.4 mg SUBLINGUAL Q5-15M PRN (Reason: Chest Pain) RF: 0 aspirin 81 mg Tablet,Chewable 81 mg PO DAILY RF: 0 furosemide 20 mg Tablet 20 mg PO DAILY RF: 0 finasteride [Proscar] 5 mg Tablet 5 mg PO DAILY RF: 0 ranolazine [Ranexa] 500 mg Tablet Extended Release 12 Hr 500 mg PO Q12H RF: 0 Discharge Interventions Interventions: Vital Signs Last Done: 12/30/17 11:32 Status ED Status: With Doctor
[2017-12-30 11:57] LABS: Baso % (Auto) 0.1 % (0.0-2.0); Eos % (Auto) 0.1 % (0.0-4.0); Hematocrit 41.5 % (39.0-51.0); Hemoglobin 14.4 gm/dL (13.0-17.0); Lymph # (Auto) 0.8 th/mm3 (1.0-4.8); Lymph % (Auto) 4.4 % (9.0-44.0); Mean Corpuscular HGB Conc 34.7 % (32.0-36.0); Mean Corpuscular Hemoglobin 31.3 pg (27.0-34.0); Mean Corpuscular Volume 90.1 fL (80.0-100.0); Mean Platelet Volume 8.2 fL (7.0-11.0); Mono # (Auto) 1.3 th/mm3 (0.0-0.9); Mono % (Auto) 7.3 % (0.0-8.0); Neut # (Auto) 15.5 th/mm3 (1.8-7.7); Neut % (Auto) 88.1 % (16.0-70.0); Platelet Count 161 th/mm3 (150-450); Red Blood Count 4.61 mil/mm3 (4.50-5.90); Red Cell Distribution Width 13.9 % (11.6-17.2); White Blood Count 17.6 th/mm3 (4.0-11.0)
--- NOTE | 2017-12-30 12:03 | XR ---
EXAM DATE: 12/30/2017 11:49 AM EDT AGE/SEX: 87 years / Male INDICATIONS: Chest pain. CLINICAL DATA: This is the patient's initial encounter. Patient reports that signs and symptoms have been present for 1 day and indicates a pain score of 4/10. MEDICAL/SURGICAL HISTORY: . Cardiovascular disease. CABG. COMPARISON: [facility], CHEST SINGLE AP, 03/08/2017. . FINDINGS: There are bilateral mostly basilar fibrotic changes in the lungs. Findings appear similar to February 2017. No effusion. No pneumothorax. Elevated right hemidiaphragm. Volume loss at the bases. CONCLUSION: Bilateral mostly basilar lung fibrosis with volume loss. Elevated right hemidiaphragm with interposed bowel between right hemidiaphragm and liver. Previous sternotomy. Electronically signed by: Arun Thomas MD 12/30/2017 12:02 PM EDT
[2017-12-30 12:07] LABS: Activated Partial Thrombo Time 27.5 sec (24.3-30.1); INR 1.2 Ratio; Prothrombin Time 11.7 sec (9.8-11.6)
[2017-12-30 12:19] LABS: Albumin 3.2 g/dL (3.4-5.0); Anion Gap 8 meq/L (5-15); Aspartate Aminotransferase 15 U/L (15-37); Blood Urea Nitrogen 8 mg/dL (7-18); Calcium 8.7 mg/dL (8.5-10.1); Carbon Dioxide 25.6 meq/L (21.0-32.0); Chloride 101 meq/L (98-107); Glomerular Filtration Rate 78 mL/min (>89); Glucose,Random 99 mg/dL (74-106); Potassium 3.5 meq/L (3.5-5.1); Sodium 135 meq/L (136-145)
[2017-12-30 12:20] LABS: Alanine Aminotransferase 13 U/L (12-78)
[2017-12-30 12:22] LABS: Alkaline Phosphatase 66 U/L (45-117); Total Protein 6.4 g/dL (6.4-8.2)
[2017-12-30] MEDS ORDERED: Acetaminophen 325 MG Tablet PO PRN (14:32)
[2017-12-30] MEDS ORDERED: Bisacodyl 10 MG Supp RECTAL PRN (14:32)
[2017-12-30] MEDS ORDERED: Nitroglycerin SL (Override) 0.4 MG Tab SL PRN (14:36)
[2017-12-30 15:31] LABS: Bilirubin,Urine Negative (Negative); Clarity,Urine Clear (Clear); Color,Urine Amber (Yellw/Straw); Glucose,Urine (UA) Negative (Negative); Leukocyte Esterase,Urine Negative (Negative); Mucus,Urine Few /lpf (Occasional); Nitrite,Urine Negative (Negative); Specific Gravity,Urine 1.019 (1.002-1.035); Squamous Epithelial Cell,Urine 1 /hpf (0-5)
[2017-12-30] MEDS: Sod Chloride 0.9% Inj 1,000 ML IV.CONT SCH (15:48)
[2017-12-30] MEDS: Ranolazine 500 MG 12HR ER Tablet PO SCH (15:48)
--- NOTE | 2017-12-30 16:37 | P.HP ---
History of Present Illness Primary Care Physician: UNKNOWN History of Present Illness: This is a 87-year-old male with a history of hypertension, coronary artery disease status post NH, stent, bypass, status post TAPVR, CVA and asbestosis. Family history of coronary artery disease. He presents to the emergency department complaining of generalized weakness for 1 day. States he also had a transient low-grade fever. Denies chills, cough, nausea, abdominal pain, UTI symptoms and diarrhea. No new medication changes. In the emergency room, workup for infection is unremarkable though he has leukocytosis and elevated troponin of 0.3 which is chronic for EMR review. EKG tracing interpreted by me shows sinus bradycardia with second-degree AV block Mobitz type II. While in the kay, he developed brief mild chest discomfort that lasted for 1-2 minutes when he moved from the gurney to his bed. All other systems reviewed negative Inpatient Certification: I certify that the inpatient services were ordered in accordance with Medicare regulations governing the order. This includes certification that hospital inpatient services are reasonable and necessary and in the case of services not specified as inpatient-only under 42 CFR 419.22(n), that they are appropriately provided as inpatient services in accordance to with the 2-midnight benchmark under 43 CFR 412.3(e) Review of Systems All other systems reviewed negative except as stated in HPI PMFSH - History History Provided By: Patient (Time spent need to have some minor he has 6 thanks ) - Medical History Medical History: Medical History (Last Updated 12/30/17 @ 11:40 by Vandana Mcdonald) Bradycardia CAD (coronary artery disease) COPD (chronic obstructive pulmonary disease) Hypercholesterolemia Hypertension PNA (pneumonia) - Surgical History Surgical History: Surgical History (Last Updated 12/30/17 @ 11:41 by Vandana Mcdonald) Aortic valve replaced History of angioplasty Hx of CABG - Family History Family History: Family History (Last Updated 12/30/17 @ 16:56 by Ming Paulino MD) Other CAD (coronary artery disease) - Tobacco History Smoking Status: Never smoker - Alcohol History How Often Do You Have a Drink Containing Alcohol: Monthly or less - Substance Use History Substance History: No History of Abuse - Travel History Recent Travel in the [place] Within the Last 8 Weeks: No Recent Travel Out of the Country Within the Last 8 Weeks: No - Immunization History Tetanus Immunization: Unsure Hx Influenza Vaccine This Season: No Medications and Allergies Active Medications: Active Medications Acetaminophen (Tylenol) 650 mg PO Q4H PRN PRN Reason: Temp > 100.4 Al Hydroxide/Mg Hydroxide (Milk Of Magnesia Liq) 30 ml PO Q12H PRN PRN Reason: Mild Constipation Aspirin (Aspirin) 325 mg PO DAILY [facility] Atorvastatin Calcium (Lipitor) 80 mg PO DAILY [facility] Bisacodyl (Dulcolax Supp) 10 mg RECTAL DAILY PRN PRN Reason: SEVERE CONSITIPATION Clopidogrel Bisulfate (Plavix) 75 mg PO DAILY [facility] Enalaprilat (Vasotec Inj) 1.25 mg IV.PUSH Q6H PRN PRN Reason: SEE LABEL COMMENTS Sodium Chloride (Ns Inj) 1,000 mls @ 70 mls/hr IV.CONT .[id number] [facility] Last Admin: 12/30/17 15:48 Dose: 70 mls/hr Isosorbide Mononitrate (Imdur) 120 mg PO DAILY@0700 [facility] Lactulose (Lactulose Liq) 30 ml PO DAILY PRN PRN Reason: SEVERE CONSITIPATION Nitroglycerin (Nitrostat Sl (Override)) 0.4 mg SL Q5M PRN PRN Reason: Chest Pain Ondansetron HCl (Zofran Inj) 4 mg IV.PUSH Q6H PRN PRN Reason: NAUSEA OR VOMITING Ranolazine (Ranexa) 500 mg PO Q12H [facility] Last Admin: 12/30/17 15:48 Dose: 500 mg Senna/Docusate Sodium (Saray-Colace) 1 tab PO BID [facility] Sennosides (Senokot) 17.2 mg PO Q12H PRN PRN Reason: Moderate Constipation Sodium Chloride (Ns Flush) 2 ml IV.FLUSH UNSCH PRN PRN Reason: FLUSH AFTER USING IV ACCESS Allergies Allergy/AdvReac Type Severity Reaction Status Date / Time iodine Allergy Severe Rash Verified 12/30/17 12:43 potassium iodide Allergy Severe Vomiting Verified 12/30/17 12:43 povidone-iodine Allergy Severe Rash Verified 12/30/17 12:43 sodium iodide Allergy Severe Rash Verified 12/30/17 12:43 crab Allergy Mild Hives Verified 12/30/17 12:43 Home Medications Medication Instructions Recorded Confirmed Type amlodipine 10 mg PO DAILY 12/30/17 12/30/17 History aspirin 81 mg PO DAILY 12/30/17 12/30/17 History atorvastatin 80 mg PO DAILY 12/30/17 12/30/17 History clopidogrel [Plavix] 75 mg PO DAILY 12/30/17 12/30/17 History finasteride [Proscar] 5 mg PO DAILY 12/30/17 12/30/17 History furosemide 20 mg PO DAILY 12/30/17 12/30/17 History isosorbide mononitrate 120 mg PO DAILY 12/30/17 12/30/17 History losartan 50 mg PO DAILY 12/30/17 12/30/17 History nitroglycerin 0.4 mg SUBLINGUAL Q5-15M PRN 12/30/17 12/30/17 History ranolazine [Ranexa] 500 mg PO Q12H 12/30/17 12/30/17 History Exam Vital signs: Vital Signs 12/30/17 11:27 12/30/17 11:29 12/30/17 11:32 Temperature 98.7 F Pulse Rate 48 L 54 L Respiratory Rate 24 25 H Blood Pressure 144/66 H 144/66 H Pulse Oximetry 97 100 97 12/30/17 14:32 12/30/17 15:45 Temperature Pulse Rate 90 Respiratory Rate 18 Blood Pressure 120/59 L Pulse Oximetry 95 96 Intake & Output 12/29/17 12/30/17 12/30/17 18:59 06:59 18:59 Weight 77.111 kg Narrative: GENERAL: Well-developed well-nourished looks dry SKIN: Warm and dry. HEAD: Atraumatic. Normocephalic. EYES: Pupils equal and round. No scleral icterus. No injection or drainage. ENT: No nasal bleeding or discharge. Mucous membranes pink and moist. NECK: Trachea midline. No JVD. CARDIOVASCULAR: Regular rate and rhythm. RESPIRATORY: No accessory muscle use. Clear to auscultation. Breath sounds equal bilaterally. GASTROINTESTINAL: Abdomen soft, non-tender, nondistended. MUSCULOSKELETAL: Extremities without clubbing, cyanosis, or edema. No obvious deformities. NEUROLOGICAL: Awake and alert. No obvious cranial nerve deficits. Motor grossly within normal limits. Five out of 5 muscle strength in the arms and legs. Normal speech. PSYCHIATRIC: Appropriate mood and affect; insight and judgment normal. Results - Labs CBC & Chem 7: 12/30/17 11:35 12/30/17 11:35 Labs: Laboratory Results - last 24 hr 12/30/17 12/30/17 12/30/17 11:35 11:35 11:35 WBC 17.6 H RBC 4.61 Hgb 14.4 Hct 41.5 MCV 90.1 MCH 31.3 MCHC 34.7 RDW 13.9 Plt Count 161 MPV 8.2 Neut % (Auto) 88.1 H Lymph % (Auto) 4.4 L [place] % (Auto) 7.3 Eos % (Auto) 0.1 Baso % (Auto) 0.1 Neut # (Auto) 15.5 H Lymph # (Auto) 0.8 L [place] # (Auto) 1.3 H Eos # (Auto) 0.0 Baso # (Auto) 0.0 WBC Differential . Differential Comment Auto diff final PT 11.7 H INR 1.2 APTT 27.5 Sodium Potassium Chloride Carbon Dioxide Anion Gap BUN Creatinine Estimated GFR Random Glucose Calcium Total Bilirubin AST ALT Alkaline Phosphatase Troponin I 0.30 H B-Natriuretic Peptide Total Protein Albumin Urine Color Urine Clarity Urine pH Ur Specific [place] Urine Protein Urine Glucose (UA) Urine Ketones Urine Occult Blood Urine Nitrate Urine Bilirubin Urine Urobilinogen Ur Leukocyte Esterase Urine RBC Urine WBC Ur Squamous Epith Cells Urine Mucus Micro UA Comment Urine Culture Comments 12/30/17 12/30/17 12/30/17 11:35 11:35 14:50 WBC RBC Hgb Hct MCV MCH MCHC RDW Plt Count MPV Neut % (Auto) Lymph % (Auto) [place] % (Auto) Eos % (Auto) Baso % (Auto) Neut # (Auto) Lymph # (Auto) [place] # (Auto) Eos # (Auto) Baso # (Auto) WBC Differential Differential Comment PT INR APTT Sodium 135 L Potassium 3.5 Chloride 101 Carbon Dioxide 25.6 Anion Gap 8 BUN 8 Creatinine 0.92 Estimated GFR 78 L Random Glucose 99 Calcium 8.7 Total Bilirubin 1.7 H AST 15 ALT 13 Alkaline Phosphatase 66 Troponin I B-Natriuretic Peptide 190 H Total Protein 6.4 Albumin 3.2 L Urine Color [place] Urine Clarity Clear Urine pH 6.0 Ur Specific [place] 1.019 Urine Protein 30 H Urine Glucose (UA) Negative Urine Ketones Negative Urine Occult Blood Small H Urine Nitrate Negative Urine Bilirubin Negative Urine Urobilinogen 2.0 H Ur Leukocyte Esterase Negative Urine RBC 9 H Urine WBC 1 Ur Squamous Epith Cells 1 Urine Mucus Few H Micro UA Comment Culture not ind Urine Culture Comments Culture not ind - Imaging Impressions Chest X-Ray 12/30/17 11:29 CONCLUSION: Bilateral mostly basilar lung fibrosis with volume loss. Elevated right hemidiaphragm with interposed bowel between right hemidiaphragm and liver. Previous sternotomy. Caprini VTE Risk Assessment Caprini VTE Risk Assessment: Moderate/High Risk (score >= 2) Caprini Risk Assessment Model: Point Value = 1 Point Value = 2 Point Value = 3 Point Value = 5 Age 41-60 Minor surgery BMI > 25 kg/m2 Swollen legs Varicose veins or History of unexplained or recurrent spontaneous Oral contraceptives or hormone replacement Sepsis (< 1 month) Serious lung disease, including pneumonia (< 1 month) Abnormal pulmonary function Acute myocardial infarction Congestive heart failure (< 1 month) History of inflammatory bowel disease Medical patient at bed rest Age 61-74 Arthroscopic surgery Major open surgery (> 45 min) Laparoscopic surgery (> 45 min) Malignancy Confined to bed (> 72 hours) Immobilizing plaster cast Central venous access Age >= 75 History of VTE Family history of VTE Factor V Leiden Prothrombin [id number] Lupus anticoagulant Anticardiolipin antibodies Elevated serum homocysteine Heparin-induced thrombocytopenia Other congenital or acquired thrombophilia Stroke (< 1 month) Elective arthroplasty Hip, pelvis, or leg fracture Acute spinal cord injury (< 1 month) Prophylaxis Regimen: Total Risk Factor Score Risk Level Prophylaxis Regimen 0-1 Low Early ambulation 2 Moderate Order ONE of the following: *Sequential Compression Device (SCD) *Heparin 5000 units SQ BID 3-4 Higher Order ONE of the following medications: *Heparin 5000 units SQ TID *Enoxaparin/Lovenox 40 mg SQ daily (WT < 150 kg, CrCl > 30 mL/min) *Enoxaparin/Lovenox 30 mg SQ daily (WT < 150 kg, CrCl > 10-29 mL/min) *Enoxaparin/Lovenox 30 mg SQ BID (WT < 150 kg, CrCl > 30 mL/min) AND/OR *Sequential Compression Device (SCD) 5 or more Highest Order ONE of the following medications: *Heparin 5000 units SQ TID (Preferred with Epidurals) *Enoxaparin/Lovenox 40 mg SQ daily (WT < 150 kg, CrCl > 30 mL/min) *Enoxaparin/Lovenox 30 mg SQ daily (WT < 150 kg, CrCl > 10-29 mL/min) *Enoxaparin/Lovenox 30 mg SQ BID (WT < 150 kg, CrCl > 30 mL/min) AND *Sequential Compression Device (SCD) Assessment and Plan - Plan This is a 87-year-old male with a history of hypertension, coronary artery disease status post NH, stent, bypass, status post TAPVR, CVA and asbestosis. He presents to the emergency department complaining of generalized weakness for 1 day. States he also had a transient low-grade fever. Denies chills, cough, nausea, abdominal pain, UTI symptoms and diarrhea. No new medication changes. In the emergency room, workup for infection is unremarkable though he has leukocytosis and elevated troponin of 0.3 which is chronic for EMR review. EKG tracing interpreted by me shows sinus bradycardia with second-degree AV block Mobitz type II. While in the kay, he developed brief mild chest discomfort that lasted for 1-2 minutes when he moved from the gurney to his bed. Generalized weakness/symptomatic bradycardia. Patient will be monitored on telemetry. PT evaluation. Second-degree AV block Mobitz type II. Patient not on rate limiting drugs at this time. Current heart rate in the 70s. 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 Obtain TSH. Continue IV hydration and hold BP medications at this time Elevated troponin/NSTEMI. Currently pain-free. History of coronary artery disease. Continue aspirin, Plavix and nitrate as needed. Trend cardiac enzymes. Leukocytosis could be reactive. Urinalysis and chest x-ray with no evidence of infection. Consider blood culture if patient febrile DVT prophylaxis with SCD and early ambulation. Hold pharmacological prophylaxis pending cardiology evaluation. Discharge Planning: HHC vs rehab
[2017-12-30] MEDS: Aspirin 325 MG Tablet PO SCH (17:18)
[2017-12-30] MEDS: Senna/Docusate Sodium 8.6/50 MG Tablet PO SCH (21:56)
--- NOTE | 2017-12-30 23:49 | MB ---
cc: Yandel Farias DO DATE: 12/30/2017 REASON FOR CONSULTATION: Elevated troponin. HISTORY OF PRESENT ILLNESS: Arun Shepard is a pleasant 87-year-old male who sees my partner, Dr. Crow, in the office and presented to [facility] due to generalized weakness. Apparently over the past 24 to 48 hours, he has felt overly tired and weak. He has also had a low-grade fever at home, reaching 100.0. Apparently, the night before he had shaking chills where he needed another blanket. He states that he has had a cough, but it appears to be nonproductive. On arrival, an EKG was done and was read as second degree AV block with Mobitz type 2, although reviewing this, it is a 2:1 block and an inability to tell whether it is type 2 or type 1. He denies chest pain to me, but apparently told the admitting doctor that when he was moving from the rney to his bed that he had mild chest pain. He states that since being in the hospital last time when I saw him for coronary artery disease, which we eventually treated medically, he has been doing relatively well without chest pain or shortness of breath. PAST MEDICAL HISTORY: 1. Coronary artery disease. 2. Hyperlipidemia. 3. History of cerebrovascular accident. 4. Hypertension. 5. Arthritis. 6. Previous pneumonia. PAST SURGICAL HISTORY: 1. Coronary artery bypass grafting (around 2000). 2. PCI of SVG to RCA (05/2016) with a drug-eluting stent of unknown size. 3. Previous bare-metal stent to the RCA (2006). 4. TAVR with a CoreValve (05/2016 in [place]). 5. Cardiac catheterization (11/07/2016): Left main, 40%, LAD, 99% in the proximal 100% in the mid, left circumflex known to be occluded, RCA diffuse 50% disease in the mid and 70% disease at the distal before 100% occlusion. SVG to RCA is patent with previous stent in the distal portion patent and no significant disease. LINDO to LAD is extremely tortuous and distal to the anastomosis, there appears to be an 80% lesion going into the LAD. This is similar to his previous catheterization in [place] in 05/2016 and he was recommended medical management, at that time. ALLERGIES: 1. IODINE. 2. CRAB. MEDICATIONS: 1. Nitroglycerin sublingual as needed. 2. Losartan 50 mg daily. 3. Imdur 120 mg daily. 4. Lasix 20 mg daily. 5. Plavix 75 mg daily. 6. Atorvastatin 80 mg daily. 7. Aspirin 81 mg daily. 8. Norvasc 10 mg daily. 9. Ranexa 500 mg every 12 hours. 10. Proscar 5 mg daily. FAMILY HISTORY: Denies premature coronary artery disease or sudden cardiac within the family. SOCIAL HISTORY: Denies tobacco, alcohol or drug abuse. 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 REVIEW OF SYSTEMS: Fourteen systems were reviewed including osteopathic. Pertinent positives and negatives above, otherwise negative. PHYSICAL EXAMINATION: VITAL SIGNS: Temperature 100.3, heart rate 88, blood pressure 138/65, respirations 18, pulse oximetry 97% on 3 liters. GENERAL: The patient appears well, no acute distress, alert, awake and oriented x3. HEENT: Extraocular muscles intact. Mucous membranes moist. NECK: Supple. No JVD at 45 degrees. No carotid bruits heard bilaterally. Carotid upstroke is brisk in nature. HEART: Regular rate and rhythm. Positive first and second heart sounds with no noted murmurs, gallops or rubs. LUNGS: Decreased breath sounds at bilateral bases with rhonchi in the right lower lobe. ABDOMEN: Soft, nontender, nondistended. No organomegaly noted. EXTREMITIES: Show no clubbing, cyanosis or edema. Femoral and distal pulses intact bilaterally. NEUROLOGIC: No focal deficits. SKIN: Warm, dry and intact. OSTEOPATHIC: No kyphoscoliosis, lordosis or paraspinal tender points. LABORATORY DATA: Hemoglobin 14.4, hematocrit 41.5, platelets 161. Potassium 3.5, BUN 8, creatinine 0.92, troponin 0.30. Electrocardiogram (12/30/2017 at 12:23): Sinus bradycardia with second-degree AV block which is 2:1, LVH with secondary ST-T wave changes. IMPRESSION: 1. Generalized fatigue and malaise. 2. Low-grade fever with an elevated white blood cell count. 3. Elevated troponin. 4. Known coronary artery disease for medical management. 5. 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 6. History of coronary artery bypass graft. 7. History of TAVR. RECOMMENDATIONS: 1. Mr. Shepard presented with malaise and fatigue, as well as a low grade fever. He has an elevated white count and underlying infection should be ruled out. 2. He does have a mildly elevated troponin and known coronary artery disease. For now, I would continue treating this medically as this might be type 2 due to his overall underlying illness. He previously underwent cardiac catheterization in 05/2016 and again in 02/2017. Due to the complexity of his disease at his anastomosis of his LAD through an extremely tortuous LINDO, both myself and the interventionalist in [place] have attempted to treat this medically and avoid PCI 3. His EKG shows a second-degree AV block with 2:1 block, unable to tell at this time whether this is Mobitz 1 or 2. After workup from an infectious disease standpoint, this will have to be further evaluated as this may also be a cause to his overall malaise, although more than likely that would have to do with his fever and possible underlying infection. 4. Further recommendations will be made based on the hospital course. Thank you for allowing me to see Arun Shepard. If there are any questions, please do not hesitate to call. DO ACACIA Rain/wai/baldev , 09:56 PM , 10:13 PM SERGIO
[2017-12-31 01:02] LABS: Thyroid Stimulating Hormone 1.62 uIU/mL (0.358-3.740); Troponin I 0.15 ng/mL (0.02-0.05)
[2017-12-31] MEDS: Sod Chloride 0.9% Inj 1,000 ML IV.CONT SCH ×2 (04:39→21:47)
[2017-12-31] MEDS: Ranolazine 500 MG 12HR ER Tablet PO SCH ×2 (04:39→15:27)
[2017-12-31 05:54] LABS: Baso % (Auto) 0.1 % (0.0-2.0); Eos % (Auto) 0.3 % (0.0-4.0); Hematocrit 37.6 % (39.0-51.0); Hemoglobin 13.1 gm/dL (13.0-17.0); Lymph # (Auto) 0.8 th/mm3 (1.0-4.8); Lymph % (Auto) 6.5 % (9.0-44.0); Mean Corpuscular HGB Conc 34.8 % (32.0-36.0); Mean Corpuscular Hemoglobin 31.3 pg (27.0-34.0); Mean Corpuscular Volume 89.9 fL (80.0-100.0); Mono % (Auto) 8.1 % (0.0-8.0); Neut # (Auto) 10.6 th/mm3 (1.8-7.7); Platelet Count 131 th/mm3 (150-450); Red Blood Count 4.18 mil/mm3 (4.50-5.90); Red Cell Distribution Width 14.3 % (11.6-17.2); White Blood Count 12.4 th/mm3 (4.0-11.0)
[2017-12-31 06:19] LABS: Anion Gap 10 meq/L (5-15); Blood Urea Nitrogen 10 mg/dL (7-18); Calcium 8.5 mg/dL (8.5-10.1); Carbon Dioxide 22.1 meq/L (21.0-32.0); Chloride 105 meq/L (98-107); Glomerular Filtration Rate Greater Than 89 mL/min (>89); Glucose,Random 105 mg/dL (74-106); Potassium 3.7 meq/L (3.5-5.1); Sodium 137 meq/L (136-145)
[2017-12-31] MEDS: Isosorbide Mononitrate 60 MG ER 24HR Tablet (Imdur) PO SCH (06:22)
[2017-12-31 06:24] LABS: Creatine Kinase 91 U/L (39-308)
[2017-12-31] MEDS: Aspirin 325 MG Tablet PO SCH (09:03)
[2017-12-31] MEDS: Senna/Docusate Sodium 8.6/50 MG Tablet PO SCH ×2 (09:03→21:47)
--- NOTE | 2017-12-31 09:55 | P.PN ---
Subjective Interval history: Follow-up for generalized weakness, fatigue, fevers, second degree AV block. The patient reports continued weakness and fatigue. He does report a nonproductive cough, although states he has a chronic cough at baseline secondary to COPD. He denies any fevers or chills overnight, however documented fever of 100.3 at 4 PM yesterday. He denies any chest pain or shortness of breath, however states he does get dyspneic with exertion. Denies any lower extremity edema or orthopnea. He also reported one episode of nausea and vomiting 1 this morning, however now resolved. Denies any abdominal pain or diarrhea. Denies any urinary complaints. Denies any other medical complaints at this time. Physical Exam Vital signs: Vital Signs 12/30/17 11:27 12/30/17 11:29 12/30/17 11:32 Temperature 98.7 F Pulse Rate 48 L 54 L Respiratory Rate 24 25 H Blood Pressure 144/66 H 144/66 H Pulse Oximetry 97 100 97 12/30/17 14:32 12/30/17 15:45 12/30/17 16:00 Temperature 100.3 F H Pulse Rate 90 88 Respiratory Rate 18 18 Blood Pressure 120/59 L 138/65 Pulse Oximetry 95 96 97 12/30/17 20:00 12/30/17 21:01 12/31/17 00:00 Temperature 98.7 F 99.1 F Pulse Rate 79 54 L Respiratory Rate 17 17 Blood Pressure 128/59 L 143/62 H Pulse Oximetry 97 97 92 L 12/31/17 03:06 12/31/17 04:00 12/31/17 08:00 Temperature 99.0 F 99.1 F Pulse Rate 60 72 91 H Respiratory Rate 18 16 Blood Pressure 134/69 122/65 Pulse Oximetry 94 L 96 Intake & Output 12/30/17 12/31/17 12/31/17 18:59 06:59 18:59 Intake Total 980 / 980 Balance 980 / 980 Weight 77.111 kg Intake: IV 980 / 980 NS Inj 1,000 ML @ 70 mls/hr IV. 980 / 980 CONT .[id number] [facility] Rx#:[id number] Other: # Voids 2 Weight On Admission 77.111 kg Narrative: GENERAL: Well-nourished, well-developed pleasant elderly male patient in [place]. SKIN: Warm and dry. No rash. HEENT: Normocephalic. Atraumatic. Pupils equal and round. NECK: Supple. Trachea midline. CARDIOVASCULAR: Regular rate and rhythm. 1/6 systolic murmur noted. RESPIRATORY: No accessory muscle use. Clear to auscultation. Breath sounds equal bilaterally. GASTROINTESTINAL: Abdomen soft, non-tender, nondistended. Normoactive bowel sounds x4. MUSCULOSKELETAL: No obvious deformities. Extremities without clubbing, cyanosis , or edema. NEUROLOGICAL: Awake and alert. No obvious cranial nerve deficits. Moving all extremities spontaneously. Normal speech. PSYCHIATRIC: Appropriate mood and affect; insight and judgment normal. Results - Labs CBC & Chem 7: 12/31/17 05:10 12/31/17 05:10 Laboratory Results - last 24 hr 12/30/17 12/30/17 12/30/17 11:35 11:35 11:35 WBC 17.6 H RBC 4.61 Hgb 14.4 Hct 41.5 MCV 90.1 MCH 31.3 MCHC 34.7 RDW 13.9 Plt Count 161 MPV 8.2 Neut % (Auto) 88.1 H Lymph % (Auto) 4.4 L [place] % (Auto) 7.3 Eos % (Auto) 0.1 Baso % (Auto) 0.1 Neut # (Auto) 15.5 H Lymph # (Auto) 0.8 L [place] # (Auto) 1.3 H Eos # (Auto) 0.0 Baso # (Auto) 0.0 WBC Differential . Differential Comment Auto diff final PT 11.7 H INR 1.2 APTT 27.5 Sodium Potassium Chloride Carbon Dioxide Anion Gap BUN Creatinine Estimated GFR Random Glucose Calcium Total Bilirubin AST ALT Alkaline Phosphatase Total Creatine Kinase Troponin I 0.30 H B-Natriuretic Peptide Total Protein Albumin TSH Urine Color Urine Clarity Urine pH Ur Specific [place] Urine Protein Urine Glucose (UA) Urine Ketones Urine Occult Blood Urine Nitrate Urine Bilirubin Urine Urobilinogen Ur Leukocyte Esterase Urine RBC Urine WBC Ur Squamous Epith Cells Urine Mucus Micro UA Comment Urine Culture Comments 12/30/17 12/30/17 12/30/17 11:35 11:35 14:50 WBC RBC Hgb Hct MCV MCH MCHC RDW Plt Count MPV Neut % (Auto) Lymph % (Auto) [place] % (Auto) Eos % (Auto) Baso % (Auto) Neut # (Auto) Lymph # (Auto) [place] # (Auto) Eos # (Auto) Baso # (Auto) WBC Differential Differential Comment PT INR APTT Sodium 135 L Potassium 3.5 Chloride 101 Carbon Dioxide 25.6 Anion Gap 8 BUN 8 Creatinine 0.92 Estimated GFR 78 L Random Glucose 99 Calcium 8.7 Total Bilirubin 1.7 H AST 15 ALT 13 Alkaline Phosphatase 66 Total Creatine Kinase Troponin I B-Natriuretic Peptide 190 H Total Protein 6.4 Albumin 3.2 L TSH Urine Color Margaret Urine Clarity Clear Urine pH 6.0 Ur Specific [place] 1.019 Urine Protein 30 H Urine Glucose (UA) Negative Urine Ketones Negative Urine Occult Blood Small H Urine Nitrate Negative Urine Bilirubin Negative Urine Urobilinogen 2.0 H Ur Leukocyte Esterase Negative Urine RBC 9 H Urine WBC 1 Ur Squamous Epith Cells 1 Urine Mucus Few H Micro UA Comment Culture not ind Urine Culture Comments Culture not ind 12/31/17 12/31/17 12/31/17 00:17 05:10 05:10 WBC 12.4 H RBC 4.18 L Hgb 13.1 Hct 37.6 L MCV 89.9 MCH 31.3 MCHC 34.8 RDW 14.3 Plt Count 131 L MPV 8.0 Neut % (Auto) 85.0 H Lymph % (Auto) 6.5 L [place] % (Auto) 8.1 H Eos % (Auto) 0.3 Baso % (Auto) 0.1 Neut # (Auto) 10.6 H Lymph # (Auto) 0.8 L [place] # (Auto) 1.0 H Eos # (Auto) 0.0 Baso # (Auto) 0.0 WBC Differential . Differential Comment Auto diff final PT INR APTT Sodium 137 Potassium 3.7 Chloride 105 Carbon Dioxide 22.1 Anion Gap 10 BUN 10 Creatinine 0.72 Estimated GFR Greater than 89 Random Glucose 105 Calcium 8.5 Total Bilirubin AST ALT Alkaline Phosphatase Total Creatine Kinase 86 91 Troponin I 0.15 H 0.20 H B-Natriuretic Peptide Total Protein Albumin TSH 1.620 Urine Color Urine Clarity Urine pH Ur Specific [place] Urine Protein Urine Glucose (UA) Urine Ketones Urine Occult Blood Urine Nitrate Urine Bilirubin Urine Urobilinogen Ur Leukocyte Esterase Urine RBC Urine WBC Ur Squamous Epith Cells Urine Mucus Micro UA Comment Urine Culture Comments - Imaging Impressions Chest X-Ray 12/30/17 11:29 CONCLUSION: Bilateral mostly basilar lung fibrosis with volume loss. Elevated right hemidiaphragm with interposed bowel between right hemidiaphragm and liver. Previous sternotomy. Assessment and Plan - Plan 87-year-old male with a history of hypertension, coronary artery disease status post MS, stent, bypass, status post TAPVR, CVA and asbestosis. He presents to the emergency department complaining of generalized weakness for 1 day. States he also had a transient low-grade fever. Denies chills, cough, nausea, abdominal pain, UTI symptoms and diarrhea. No new medication changes. In the emergency room, workup for infection is unremarkable though he has leukocytosis and elevated troponin of 0.3 which is chronic for EMR review. EKG tracing shows sinus bradycardia with second-degree AV block. [place], he developed brief mild chest discomfort that lasted for 1-2 minutes when he moved from the gurney to his bed. Sepsis: patient with +leukocytosis WBC 17.6K, and fever with Tmax 102.4. Suspected source-URI vs developing pneumonia vs viral illness. Lactic acid 1.5. -CXR reviewed and unremarkable -UA negative -Blood cultures collected -Start on antibiotics with IV Levaquin -ID Consulted, discussed with Dr. Ramirez, appreciate assistance -Influenza negative -Give IVF hydration -Monitor CBC Generalized weakness: suspect secondary to illness as above. Patient also possibly symptomatic with bradycardia -continue to treat for infection as above -Monitor on telemetry -supportive treatment with IVF -PT consulted, recommends [facility] PT Second-degree 2:1 AV block: acute. Patient not on rate limiting drugs at this time. Current heart rate in the 60s-80s. -Consult cardiology, discussed with Dr. Farias, requests ID work up, may need EP study -Continue to monitor on telemetry Elevated troponin/NSTEMI: Currently pain-free. History of coronary artery disease. -Trended troponins 0.30, 0.15, 0.20 -Continue aspirin, Plavix and nitrate as needed. -Cardiology consulted as above, appreciate recommendations DVT prophylaxis: with SCD and early ambulation. Hold pharmacological prophylaxis for now incase procedure planned. Discharge Planning: Not yet ready for discharge. Pending further clinical improvement. Admit to inpatient with sepsis and worsening fever.
--- NOTE | 2017-12-31 12:01 | P.PNCA ---
Subjective Interval history: Still feels overall weak No subjective fevers, but temp of 100.3 last night No chest pain Physical Exam Vital signs: Vital Signs 12/30/17 14:32 12/30/17 15:45 12/30/17 16:00 Temperature 100.3 F H Pulse Rate 90 88 Respiratory Rate 18 18 Blood Pressure 120/59 L 138/65 Pulse Oximetry 95 96 97 12/30/17 20:00 12/30/17 21:01 12/31/17 00:00 Temperature 98.7 F 99.1 F Pulse Rate 79 54 L Respiratory Rate 17 17 Blood Pressure 128/59 L 143/62 H Pulse Oximetry 97 97 92 L 12/31/17 03:06 12/31/17 04:00 12/31/17 08:00 Temperature 99.0 F 99.1 F Pulse Rate 60 72 91 H Respiratory Rate 18 16 Blood Pressure 134/69 122/65 Pulse Oximetry 94 L 96 12/31/17 08:03 Temperature Pulse Rate 89 Respiratory Rate Blood Pressure Pulse Oximetry Intake & Output 12/30/17 12/31/17 12/31/17 18:59 06:59 18:59 Intake Total 980 / 980 Output Total 400 / 400 Balance 980 / 980 -400 / -400 Weight 77.111 kg Intake: IV 980 / 980 NS Inj 1,000 ML @ 70 mls/hr IV. 980 / 980 CONT .[id number] [facility] Rx#:[id number] Output: Urine 400 / 400 Other: # Voids 2 Weight On Admission 77.111 kg Narrative: GENERAL: NAD, AAOx3 SKIN: Warm and dry. HEAD: Atraumatic. Normocephalic. EYES: Pupils equal and round. No scleral icterus. No injection or drainage. ENT: No nasal bleeding or discharge. Mucous membranes pink and moist. NECK: Trachea midline. No JVD. CARDIOVASCULAR: Regular rate and rhythm. 1/6 crescendo decrescendo to the RSB RESPIRATORY: No accessory muscle use. Mild rhonchi noted in the right lower lobe GASTROINTESTINAL: Abdomen soft, non-tender, nondistended. Hepatic and splenic margins not palpable. MUSCULOSKELETAL: Extremities without clubbing, cyanosis, or edema. No obvious deformities. NEUROLOGICAL: Awake and alert. No obvious cranial nerve deficits. Motor grossly within normal limits. Five out of 5 muscle strength in the arms and legs. Normal speech. PSYCHIATRIC: Appropriate mood and affect; insight and judgment normal. Assessment and Plan - Assessment (1) Leukocytosis Code(s): D72.829 - Elevated white blood cell count, unspecified Status: Acute (2) Fever and chills Code(s): R50.9 - Fever, unspecified Status: Acute (3) CAD (coronary artery disease) Code(s): I25.10 - Atherosclerotic heart disease of [place] coronary artery without angina pectoris Status: Acute (4) Hx of CABG Code(s): Z95.1 - Presence of aortocoronary bypass graft Status: Acute (5) Bradycardia Code(s): R00.1 - Bradycardia, unspecified Status: Acute (6) Elevated troponin Code(s): R74.8 - Abnormal levels of other serum enzymes Status: Acute - Plan 1) Weakness/malaise Most likely secondary to possible underlying infection? Did have second degree AV block, but now out of it, less likely the cause 2) Fever/chills ? PNA CXR with bilateral lower infiltrates, but similar to previous Non-productive cough 3) Elevated troponin Decreasing, most likely type 2 in nature Does have complex CAD with a lesion of the LINDO into the LAD which has been treated medically 4) Second degree AV block/2:1 AV block Unable to determine Mobitz type 1 or 2 Repeat EKG no longer in Mobitz but had RBBB, showing conduction disease After cleared by ID, will have EP cardiology seen him for consideration of EP study
--- NOTE | 2017-12-31 13:44 | P.CONID ---
History of Present Illness Service: Infectious disease Consult date: 12/31/17 Requesting Physician: Yandel Farias Reason for Consult: Evaluate patient with fever, going to need EPS Primary Care Provider: UNKNOWN Family Provider: Giovanni García MD, PhD History of Present Illness: Patient seen and examined. Records reviewed. Patient is an 87-year-old male, presented to the hospital complaining of 2 day history of generalized weakness. Patient has known chronic lung disease, and in 1 of his CAT scan he was found to have fibrosis, and he was told that he has a touch of asbestosis. Normally he uses 3 L O2 24 hours a day. Patient has had a chronic cough for at least 10 years, but according to him it has gotten worse over the last 3 months. Patient was in his usual self until Saturday, December 29 when he suddenly experienced generalized weakness. He was feeling a little blah on Saturday, December 28, but he did not think much of it. On December 29 , he was just very weak, and any kind of exertion will make him really short of breath that he did not move much. His p.o. intake also has been very poor. Patient's usual cough is dry. He has not noticed that it was worse. He has had some subjective fevers and chills. Denies any sore throat. He had an episode of vomiting on the day of admission. Denies any nausea or any abdominal pain. Denies any dysuria, but he noted that his urine looks darker. He has not been exposed to any sick children. When he presented to the hospital his white count was 17,000. His chest x-ray shows that chronic basilar infiltrates and this is compared to his chest x-ray from February of last year. Last night his temperature went up to 100.3. At the time my exam he is complaining of chills. His WBC went down to 12,000. Patient is being evaluated by cardiology for AV block, and requested infectious disease consultation to evaluate the fever with plans of possibly doing EPS study. Infectious disease consultation has been requested to evaluate the patient. Review of Systems Constitutional: Reports body ache(s), Reports chills, Reports fever(s), Reports lack of energy, Reports malaise, Reports weakness, Denies headache(s) Eyes: Denies discharge, Denies dry eyes, Denies pain Ears, Nose, Mouth, and Throat: Denies difficulty swallowing, Denies dry mouth, Denies ear pain, Denies facial pain, Denies headache(s), Denies nasal discharge , Denies sore throat Cardiovascular: Denies chest pain, Denies shortness of breath Respiratory: Reports cough, Reports shortness of breath, Reports shortness of breath with activity, Denies pain with cough Gastrointestinal: Denies abdominal pain, Denies difficulty swallowing, Denies loose stools, Denies nausea, Denies pain with swallowing, Denies vomiting Genitourinary: Denies painful urination Musculoskeletal: Reports joint pain, Denies joint swelling Skin/Breast: Denies sores PMFSH - History History Provided By: Patient - Medical History Medical History: Medical History (Last Updated 12/31/17 @ 13:40 by Mary Ramirez MD) Asbestosis Bradycardia CAD (coronary artery disease) COPD (chronic obstructive pulmonary disease) Hypercholesterolemia Hypertension PNA (pneumonia) Pulmonary fibrosis, unspecified - Surgical History Surgical History: Surgical History (Last Reviewed 12/31/17 @ 08:53 by Debra Adair) Aortic valve replaced History of angioplasty Hx of CABG - Family History Family History: Family History (Last Updated 12/30/17 @ 16:56 by Ming Paulino MD) Other CAD (coronary artery disease) - Tobacco History Second Hand Smoke Exposure: No Smoking Status: Never smoker - Alcohol History How Often Do You Have a Drink Containing Alcohol: Never - Substance Use History Substance History: No History of Abuse - Travel History Recent Travel in the [place] Within the Last 8 Weeks: No Recent Travel Out of the Country Within the Last 8 Weeks: No - Immunization History Tetanus Immunization: Unsure Hx Influenza Vaccine This Season: No Medications and Allergies Active Medications: Active Medications Acetaminophen (Tylenol) 650 mg PO Q4H PRN PRN Reason: Temp > 100.4 Al Hydroxide/Mg Hydroxide (Milk Of Magnesia Liq) 30 ml PO Q12H PRN PRN Reason: Mild Constipation Aspirin (Aspirin) 325 mg PO DAILY [facility] Last Admin: 12/31/17 09:03 Dose: 325 mg Atorvastatin Calcium (Lipitor) 80 mg PO DAILY [facility] Last Admin: 12/31/17 09:03 Dose: 80 mg Bisacodyl (Dulcolax Supp) 10 mg RECTAL DAILY PRN PRN Reason: SEVERE CONSITIPATION Clopidogrel Bisulfate (Plavix) 75 mg PO DAILY [facility] Last Admin: 12/31/17 09:04 Dose: 75 mg Enalaprilat (Vasotec Inj) 1.25 mg IV.PUSH Q6H PRN PRN Reason: SEE LABEL COMMENTS Sodium Chloride (Ns Inj) 1,000 mls @ 70 mls/hr IV.CONT .[id number] [facility] Last Admin: 12/31/17 04:39 Dose: 70 mls/hr Isosorbide Mononitrate (Imdur) 120 mg PO DAILY@0700 [facility] Last Admin: 12/31/17 06:22 Dose: 120 mg Lactulose (Lactulose Liq) 30 ml PO DAILY PRN PRN Reason: SEVERE CONSITIPATION Nitroglycerin (Nitrostat Sl (Override)) 0.4 mg SL Q5M PRN PRN Reason: Chest Pain Ondansetron HCl (Zofran Inj) 4 mg IV.PUSH Q6H PRN PRN Reason: NAUSEA OR VOMITING Ranolazine (Ranexa) 500 mg PO Q12H [facility] Last Admin: 12/31/17 04:39 Dose: 500 mg Senna/Docusate Sodium (Saray-Colace) 1 tab PO BID [facility] Last Admin: 12/31/17 09:03 Dose: 1 tab Sennosides (Senokot) 17.2 mg PO Q12H PRN PRN Reason: Moderate Constipation Sodium Chloride (Ns Flush) 2 ml IV.FLUSH UNSCH PRN PRN Reason: FLUSH AFTER USING IV ACCESS Allergies Allergy/AdvReac Type Severity Reaction Status Date / Time iodine Allergy Severe Rash Verified 12/30/17 12:43 potassium iodide Allergy Severe Vomiting Verified 12/30/17 12:43 povidone-iodine Allergy Severe Rash Verified 12/30/17 12:43 sodium iodide Allergy Severe Rash Verified 12/30/17 12:43 crab Allergy Mild Hives Verified 12/30/17 12:43 Home Medications Medication Instructions Recorded Confirmed Type amlodipine 10 mg PO DAILY 12/30/17 12/30/17 History aspirin 81 mg PO DAILY 12/30/17 12/30/17 History atorvastatin 80 mg PO DAILY 12/30/17 12/30/17 History clopidogrel [Plavix] 75 mg PO DAILY 12/30/17 12/30/17 History finasteride [Proscar] 5 mg PO DAILY 12/30/17 12/30/17 History furosemide 20 mg PO DAILY 12/30/17 12/30/17 History isosorbide mononitrate 120 mg PO DAILY 12/30/17 12/30/17 History losartan 50 mg PO DAILY 12/30/17 12/30/17 History nitroglycerin 0.4 mg SUBLINGUAL Q5-15M PRN 12/30/17 12/30/17 History ranolazine [Ranexa] 500 mg PO Q12H 12/30/17 12/30/17 History Exam Vital signs: Vital Signs 12/30/17 14:32 12/30/17 15:45 12/30/17 16:00 Temperature 100.3 F H Pulse Rate 90 88 Respiratory Rate 18 18 Blood Pressure 120/59 L 138/65 Pulse Oximetry 95 96 97 12/30/17 20:00 12/30/17 21:01 12/31/17 00:00 Temperature 98.7 F 99.1 F Pulse Rate 79 54 L Respiratory Rate 17 17 Blood Pressure 128/59 L 143/62 H Pulse Oximetry 97 97 92 L 12/31/17 03:06 12/31/17 04:00 12/31/17 08:00 Temperature 99.0 F 99.1 F Pulse Rate 60 72 91 H Respiratory Rate 18 16 Blood Pressure 134/69 122/65 Pulse Oximetry 94 L 96 12/31/17 08:03 Temperature Pulse Rate 89 Respiratory Rate Blood Pressure Pulse Oximetry Intake & Output 12/30/17 12/31/17 12/31/17 18:59 06:59 18:59 Intake Total 980 / 980 Output Total 400 / 400 Balance 980 / 980 -400 / -400 Weight 77.111 kg Intake: IV 980 / 980 NS Inj 1,000 ML @ 70 mls/hr IV. 980 / 980 CONT .[id number] [facility] Rx#:[id number] Output: Urine 400 / 400 Other: # Voids 2 Weight On Admission 77.111 kg Narrative: Physical Examination GENERAL: Patient is a well-nourished, well-developed male, awake and alert, not in respiratory distress. Looks comfortable at rest SKIN: Warm and dry. No generalized rash, no ecchymoses and no evidence of embolic lesions. HEAD: Atraumatic. Normocephalic. No temporal wasting, or tenderness. EYES: [place] conjunctiva. No petechia or hemorrhage. Pupils equal, round and reactive to light. Extraocular movements full and intact. No scleral icterus. No injection or drainage. EARS, NOSE AND THROAT: Nose without bleeding or purulent nasal discharge. No sinus tenderness. Mucous membranes pink and moist. No oral lesions noted. No exudate. No oral thrush. NECK: Trachea midline. Supple and not tender, no meningeal signs CARDIOVASCULAR: Regular rate and rhythm. No murmurs, rubs or gallops heard RESPIRATORY: Coarse rales at both bases, with increased vocal fremitus. No rales, wheezing or rhonchi ABDOMEN: Soft, non-tender, nondistended. Bowel sounds present and normoactive. No guarding. No rebound. No organomegaly. EXTREMITIES: No clubbing, cyanosis, or edema. No joint effusion, has good ROM. No calf tenderness. Well perfused and warm. NEUROLOGICAL: Awake and alert. Cranial nerves grossly intact. Motor grossly within normal limits. PSYCHIATRIC: Normal affect, calm and cooperative. LINE: No evidence of infection Results - Labs CBC & Chem 7: 12/31/17 05:10 12/31/17 05:10 Labs: Laboratory Results - last 24 hr 12/30/17 12/31/17 12/31/17 14:50 00:17 05:10 WBC RBC Hgb Hct MCV MCH MCHC RDW Plt Count MPV Neut % (Auto) Lymph % (Auto) [place] % (Auto) Eos % (Auto) Baso % (Auto) Neut # (Auto) Lymph # (Auto) [place] # (Auto) Eos # (Auto) Baso # (Auto) WBC Differential Differential Comment Sodium 137 Potassium 3.7 Chloride 105 Carbon Dioxide 22.1 Anion Gap 10 BUN 10 Creatinine 0.72 Estimated GFR Greater than 89 Random Glucose 105 Lactic Acid Calcium 8.5 Total Creatine Kinase 86 91 Troponin I 0.15 H 0.20 H TSH 1.620 Urine Color [place] Urine Clarity Clear Urine pH 6.0 Ur Specific [place] 1.019 Urine Protein 30 H Urine Glucose (UA) Negative Urine Ketones Negative Urine Occult Blood Small H Urine Nitrate Negative Urine Bilirubin Negative Urine Urobilinogen 2.0 H Ur Leukocyte Esterase Negative Urine RBC 9 H Urine WBC 1 Ur Squamous Epith Cells 1 Urine Mucus Few H Micro UA Comment Culture not ind Urine Culture Comments Culture not ind 12/31/17 12/31/17 05:10 10:05 WBC 12.4 H RBC 4.18 L Hgb 13.1 Hct 37.6 L MCV 89.9 MCH 31.3 MCHC 34.8 RDW 14.3 Plt Count 131 L MPV 8.0 Neut % (Auto) 85.0 H Lymph % (Auto) 6.5 L [place] % (Auto) 8.1 H Eos % (Auto) 0.3 Baso % (Auto) 0.1 Neut # (Auto) 10.6 H Lymph # (Auto) 0.8 L [place] # (Auto) 1.0 H Eos # (Auto) 0.0 Baso # (Auto) 0.0 WBC Differential . Differential Comment Auto diff final Sodium Potassium Chloride Carbon Dioxide Anion Gap BUN Creatinine Estimated GFR Random Glucose Lactic Acid 1.5 Calcium Total Creatine Kinase Troponin I TSH Urine Color Urine Clarity Urine pH Ur Specific [place] Urine Protein Urine Glucose (UA) Urine Ketones Urine Occult Blood Urine Nitrate Urine Bilirubin Urine Urobilinogen Ur Leukocyte Esterase Urine RBC Urine WBC Ur Squamous Epith Cells Urine Mucus Micro UA Comment Urine Culture Comments - Imaging Chest X-Ray 12/30/17 11:29 CONCLUSION: Bilateral mostly basilar lung fibrosis with volume loss. Elevated right hemidiaphragm with interposed bowel between right hemidiaphragm and liver. Previous sternotomy. Assessment and Plan - Plan Impression Febrile illness, likely due to pulmonary process - ?PNA vx COPD exacerbation Known COPD, pulmonary fibrosis, asbestosis CAD, heart block Recommendation [place] and pneumococcal Ag Check viral respiratory panel Influenza Ag Levaquin for pulmonary coverage Follow temps Try and get sputum C/S C/S Monitor progress I will follow along with you Thank you for this consultation Explained plan to patient and
[2017-12-31] MEDS ORDERED: levoFLOXacin 750 MG Tablet PO SCH (14:00)
--- NOTE | 2017-12-31 23:17 | ECG ---
Date Performed: 12/31/2017 Time Performed: 01:25:14 PTAGE: 87 years EKG: SINUS BRADYCARDIA WITH 2ND DEGREE AV BLOCK, 2:1 BLOCK BORDERLINE LEFT AXIS DEVIATION NONSPE CIFIC ST & T-WAVE ABNORMALITY ABNORMAL ECG PREVIOUS TRACING : 12/30/2017 19.02 Compared to previous tracing, previously Sinus rhythm with RBBB DOCTOR: Yandel Farias Interpretating Date/Time 12/31/2017 23:16:21
--- NOTE | 2017-12-31 23:25 | ECG ---
Date Performed: 12/30/2017 Time Performed: 19:02:13 PTAGE: 87 years EKG: Sinus rhythm WITH FIRST DEGREE AV BLOCK MARKED LEFT AXIS DEVIATION RIGHT BUNDLE BRANCH BLOCK MINIMAL VOLTAGE CRIT ERIA FOR LVH, CONSIDER NORMAL VARIANT ABNORMAL ECG PREVIOUS TRACING : 12/30/2017 12.23 Compared to previous tracing, now in sinus rhythm with RBB B DOCTOR: Yandel Farias Interpretating Date/Time 12/31/2017 23:25:03
--- NOTE | 2017-12-31 23:45 | ECG ---
Date Performed: 12/30/2017 Time Performed: 12:23:31 PTAGE: 87 years EKG: SINUS BRADYCARDIA WITH 2ND DEGREE AV BLOCK, 2:1 BLOCK BORDERLINE LEFT AXIS DEVIATION LEFT V ENTRICULAR HYPERTROPHY AND ST-T CHANGE ABNORMAL ECG PREVIOUS TRACING : 12/30/2017 12.22 Compared to previous tracing, previously Sinus rhythm DOCTOR: Yandel Farias Interpretating Date/Time 12/31/2017 23:43:25
[2018-01-01] MEDS: Ranolazine 500 MG 12HR ER Tablet PO SCH ×2 (04:30→15:50)
[2018-01-01] MEDS: Sod Chloride 0.9% Inj 1,000 ML IV.CONT SCH ×2 (05:15→15:32)
[2018-01-01] MEDS: Isosorbide Mononitrate 60 MG ER 24HR Tablet (Imdur) PO SCH (06:31)
[2018-01-01] MEDS: Aspirin 325 MG Tablet PO SCH (09:55)
[2018-01-01] MEDS: Senna/Docusate Sodium 8.6/50 MG Tablet PO SCH ×2 (09:55→20:39)
[2018-01-01 10:40] LABS: Baso % (Auto) 0.1 % (0.0-2.0); Eos % (Auto) 0.4 % (0.0-4.0); Hematocrit 34.5 % (39.0-51.0); Hemoglobin 12.3 gm/dL (13.0-17.0); Lymph # (Auto) 0.7 th/mm3 (1.0-4.8); Lymph % (Auto) 8.8 % (9.0-44.0); Mean Corpuscular HGB Conc 35.8 % (32.0-36.0); Mean Corpuscular Hemoglobin 31.7 pg (27.0-34.0); Mean Corpuscular Volume 88.6 fL (80.0-100.0); Mean Platelet Volume 8.1 fL (7.0-11.0); Mono # (Auto) 0.8 th/mm3 (0.0-0.9); Mono % (Auto) 10.3 % (0.0-8.0); Neut # (Auto) 6.3 th/mm3 (1.8-7.7); Neut % (Auto) 80.4 % (16.0-70.0); Platelet Count 131 th/mm3 (150-450); Red Blood Count 3.89 mil/mm3 (4.50-5.90); Red Cell Distribution Width 13.7 % (11.6-17.2); White Blood Count 7.9 th/mm3 (4.0-11.0)
[2018-01-01 11:06] LABS: Anion Gap 11 meq/L (5-15); Blood Urea Nitrogen 5 mg/dL (7-18); Calcium 8.3 mg/dL (8.5-10.1); Carbon Dioxide 23.5 meq/L (21.0-32.0); Chloride 101 meq/L (98-107); Glomerular Filtration Rate Greater Than 89 mL/min (>89); Glucose,Random 95 mg/dL (74-106); Sodium 135 meq/L (136-145)
[2018-01-01 11:18] LABS: Potassium 2.9 meq/L (3.5-5.1)
--- NOTE | 2018-01-01 12:50 | P.PN ---
Subjective Interval history: Follow-up for generalized weakness, fatigue, fevers, pneumonia, second-degree AV block. Patient reports feeling better today compared to yesterday. He denies any further fevers today, but does report occasional chills. He reports continued nonproductive cough with some mild associated shortness of breath. He denies any chest pain or palpitations. Denies any lightheadedness or dizziness. He still reports generalized weakness, minimally improved. He denies any other medical complaints at this time. Physical Exam Vital signs: Vital Signs 12/31/17 16:00 12/31/17 16:56 12/31/17 17:20 Temperature 102.4 F H 101.1 F H Pulse Rate 66 87 Respiratory Rate 20 Blood Pressure 143/51 H Pulse Oximetry 94 L 12/31/17 20:00 01/01/18 00:00 01/01/18 04:00 Temperature 98.4 F 98 F Pulse Rate 102 H 91 H 107 H Respiratory Rate 17 16 20 Blood Pressure 119/65 143/68 H 151/80 H Pulse Oximetry 95 97 01/01/18 08:03 01/01/18 08:05 01/01/18 08:11 Temperature 98.0 F Pulse Rate 101 H 101 H Respiratory Rate 18 Blood Pressure 136/64 Pulse Oximetry 96 95 01/01/18 12:00 Temperature 98.1 F Pulse Rate 102 H Respiratory Rate 18 Blood Pressure 100/60 Pulse Oximetry 97 Intake & Output 12/31/17 01/01/18 01/01/18 18:59 06:59 18:59 Intake Total 1000 / 1000 Output Total 800 / 800 700 / 700 Balance -800 / -800 300 / 300 Intake: IV 1000 / 1000 NS Inj 1,000 ML @ 100 mls/hr IV 1000 / 1000 .CONT .Q10H [facility] Rx#:[id number] Output: Urine 800 / 800 700 / 700 Other: # Voids 1 # [place] 1 Narrative: GENERAL: Well-nourished, well-developed pleasant elderly male patient in NAD. SKIN: Warm and dry. No rash. HEENT: Normocephalic. Atraumatic. Pupils equal and round. NECK: Supple. Trachea midline. CARDIOVASCULAR: Regular rate and rhythm. 1/6 systolic murmur noted. RESPIRATORY: No accessory muscle use. Faint rales at bilateral bases. Breath sounds equal bilaterally. GASTROINTESTINAL: Abdomen soft, non-tender, nondistended. Normoactive bowel sounds x4. MUSCULOSKELETAL: No obvious deformities. Extremities without clubbing, cyanosis , or edema. NEUROLOGICAL: Awake and alert. No obvious cranial nerve deficits. Moving all extremities spontaneously. Normal speech. PSYCHIATRIC: Appropriate mood and affect; insight and judgment normal. Results - Labs CBC & Chem 7: 01/01/18 10:04 01/01/18 10:04 Laboratory Results - last 24 hr 01/01/18 01/01/18 10:04 10:04 WBC 7.9 RBC 3.89 L Hgb 12.3 L Hct 34.5 L MCV 88.6 MCH 31.7 MCHC 35.8 RDW 13.7 Plt Count 131 L MPV 8.1 Neut % (Auto) 80.4 H Lymph % (Auto) 8.8 L [place] % (Auto) 10.3 H Eos % (Auto) 0.4 Baso % (Auto) 0.1 Neut # (Auto) 6.3 Lymph # (Auto) 0.7 L [place] # (Auto) 0.8 Eos # (Auto) 0.0 Baso # (Auto) 0.0 WBC Differential . Differential Comment Auto diff final Sodium 135 L Potassium 2.9 L* D Chloride 101 Carbon Dioxide 23.5 Anion Gap 11 BUN 5 L Creatinine 0.47 L Estimated GFR Greater than 89 Random Glucose 95 Calcium 8.3 L Microbiology 12/31/17 20:15 Urine - Clean Catch Urine Streptococcus pneumoniae Antigen ( M - Final Presumptive negative for streptococcus pneumoniae antigen, suggesting no current or recent infection. Infection due to Streptococcus pneumoniae cannot be ruled out since the antigen present in the sample may be below the detection limit of the test. 12/31/17 20:15 Urine - Clean Catch Urine Legionella Antigen - Final Presumptive negative for Legionella pneumophila serogroup 1 antigen in urine, suggesting no recent or recurrent infection. Infection due to Legionella cannot be ruled out since other serogroups and species may cause disease, antigen may not be present in urine in early infection, and the level of antigen present in the urine may be below the detection limit of the test. 12/31/17 17:12 Blood - Peripheral Aerobic Blood Culture - Preliminary No growth in 1 day 12/31/17 17:12 Blood - Peripheral Anaerobic Blood Culture - Preliminary No growth in 1 day 12/31/17 17:05 Blood - Peripheral Aerobic Blood Culture - Preliminary No growth in 1 day 12/31/17 17:05 Blood - Peripheral Anaerobic Blood Culture - Preliminary No growth in 1 day 12/31/17 10:05 Blood - Peripheral Aerobic Blood Culture - Preliminary No growth in 1 day 12/31/17 10:05 Blood - Peripheral Anaerobic Blood Culture - Preliminary No growth in 1 day 12/31/17 10:00 Blood - Peripheral Aerobic Blood Culture - Preliminary No growth in 1 day 12/31/17 10:00 Blood - Peripheral Anaerobic Blood Culture - Preliminary No growth in 1 day 12/31/17 15:25 Nasal Wash Influenza Types A,B Antigen - Final Negative for FLU A and B antigen Infection due to influenza A or B cannot be ruled out since the antigen present in the sample may be below the detection limit of the test. - Imaging Chest X-Ray 12/30/17 11:29 CONCLUSION: Bilateral mostly basilar lung fibrosis with volume loss. Elevated right hemidiaphragm with interposed bowel between right hemidiaphragm and liver. Previous sternotomy. Assessment and Plan - Plan 87-year-old male with a history of hypertension, coronary artery disease status post [place], stent, bypass, status post TAPVR, CVA and asbestosis. He presents to the emergency department complaining of generalized weakness for 1 day. States he also had a transient low-grade fever. Denies chills, cough, nausea, abdominal pain, UTI symptoms and diarrhea. No new medication changes. In the emergency room, workup for infection is unremarkable though he has leukocytosis and elevated troponin of 0.3 which is chronic for EMR review. EKG tracing shows sinus bradycardia with second-degree AV block. While in the kay, he developed brief mild chest discomfort that lasted for 1-2 minutes when he moved from the gurney to his bed. Sepsis: patient with +leukocytosis WBC 17.6K, and fever with Tmax 102.4. Suspected source-URI vs developing pneumonia vs viral illness. Lactic acid 1.5. -CXR reviewed, shows Bilateral mostly basilar lung fibrosis with volume loss and elevated right hemidiaphragm -UA negative -Blood cultures with NTD -Continue on antibiotics with IV Levaquin -ID Consulted, discussed with Dr. Ramirez, appreciate assistance -Influenza negative -Urinary legionella and pneumococcal antigens negative -Give IVF hydration -Monitor CBC, improved, WBC 7.9K Generalized weakness: suspect secondary to illness as above. Patient also possibly symptomatic with bradycardia -continue to treat for infection as above -Monitor on telemetry -supportive treatment with IVF -PT consulted, recommends [facility] PT Second-degree 2:1 AV block: acute. Patient not on rate limiting drugs at this time. Current heart rate in the 60s-80s. -Consult cardiology, discussed with Dr. Farias, may need EP study, however will need ID clearance -Continue to monitor on telemetry Elevated troponin/NSTEMI: Currently chest pain-free. History of coronary artery disease. -Trended troponins 0.30, 0.15, 0.20 -Continue aspirin, Plavix and nitrate as needed. -Cardiology consulted as above, appreciate recommendations DVT prophylaxis: with SCD and early ambulation. Hold pharmacological prophylaxis for now incase procedure planned. Discharge Planning: Not yet ready for discharge. Pending further clinical improvement, and clearance from ID. Per cardiology, may need EP study during hospitalization but will need clearance from ID.
--- NOTE | 2018-01-01 12:57 | P.PNID ---
Subjective Remarks: Patient is an 87-year-old male, presented to the hospital complaining of 2 day history of generalized weakness. Patient has known chronic lung disease, and in 1 of his CAT scan he was found to have fibrosis, and he was told that he has a touch of asbestosis. Normally he uses 3 L O2 24 hours a day. Patient has had a chronic cough for at least 10 years, but according to him it has gotten worse over the last 3 months. Patient was in his usual self until Saturday, December 29 when he suddenly experienced generalized weakness. He was feeling a little blah on Saturday, December 28, but he did not think much of it. On December 29 , he was just very weak, and any kind of exertion will make him really short of breath that he did not move much. His p.o. intake also has been very poor. Patient's usual cough is dry. He has not noticed that it was worse. He has had some subjective fevers and chills. Denies any sore throat. He had an episode of vomiting on the day of admission. Denies any nausea or any abdominal pain. Denies any dysuria, but he noted that his urine looks darker. He has not been exposed to any sick children. When he presented to the hospital his white count was 17,000. His chest x-ray shows that chronic basilar infiltrates and this is compared to his chest x-ray from February of last year. Last night his temperature went up to 100.3. At the time my exam he is complaining of chills. His WBC went down to 12,000. Patient is being evaluated by cardiology for AV block, and requested infectious disease consultation to evaluate the fever with plans of possibly doing EPS study. Infectious disease consultation has been requested to evaluate the patient. Notes reviewed Spiked to 102 yesterday afternoon Feels better, sat up today Cough same C/O hoarseness [place] and pneumo Ag negative INfluenza neg Viral studies not done BC negative WBC down to normal Antibiotics: Levaquin Lines: PIV no evid of infection Past Medical History: Asbestosis Bradycardia CAD (coronary artery disease) COPD (chronic obstructive pulmonary disease) Hypercholesterolemia Hypertension PNA (pneumonia) Pulmonary fibrosis, unspecified Aortic valve replaced History of angioplasty Hx of CABG Allergies/Adverse Reactions: Allergies iodine Allergy (Severe, Verified 12/30/17 12:43) Rash potassium iodide Allergy (Severe, Verified 12/30/17 12:43) Vomiting povidone-iodine Allergy (Severe, Verified 12/30/17 12:43) Rash sodium iodide Allergy (Severe, Verified 12/30/17 12:43) Rash crab Allergy (Mild, Verified 12/30/17 12:43) Hives ITCHING Objective Vital Signs 12/31/17 16:00 12/31/17 16:56 12/31/17 17:20 Temperature 102.4 F H 101.1 F H Pulse Rate 66 87 Respiratory Rate 20 Blood Pressure 143/51 H Pulse Oximetry 94 L 12/31/17 20:00 01/01/18 00:00 01/01/18 04:00 Temperature 98.4 F 98 F Pulse Rate 102 H 91 H 107 H Respiratory Rate 17 16 20 Blood Pressure 119/65 143/68 H 151/80 H Pulse Oximetry 95 97 01/01/18 08:03 01/01/18 08:05 01/01/18 08:11 Temperature 98.0 F Pulse Rate 101 H 101 H Respiratory Rate 18 Blood Pressure 136/64 Pulse Oximetry 96 95 01/01/18 12:00 Temperature 98.1 F Pulse Rate 102 H Respiratory Rate 18 Blood Pressure 100/60 Pulse Oximetry 97 Intake & Output 12/31/17 01/01/18 01/01/18 18:59 06:59 18:59 Intake Total 1000 / 1000 Output Total 800 / 800 700 / 700 Balance -800 / -800 300 / 300 Intake: IV 1000 / 1000 NS Inj 1,000 ML @ 100 mls/hr IV 1000 / 1000 .CONT .Q10H [facility] Rx#:[id number] Output: Urine 800 / 800 700 / 700 Other: # Voids 1 # Emeses 1 12/31/17 20:15 Urine - Clean Catch Urine Streptococcus pneumoniae Antigen ( M - Final Presumptive negative for streptococcus pneumoniae antigen, suggesting no current or recent infection. Infection due to Streptococcus pneumoniae cannot be ruled out since the antigen present in the sample may be below the detection limit of the test. 12/31/17 20:15 Urine - Clean Catch Urine Legionella Antigen - Final Presumptive negative for Legionella pneumophila serogroup 1 antigen in urine, suggesting no recent or recurrent infection. Infection due to Legionella cannot be ruled out since other serogroups and species may cause disease, antigen may not be present in urine in early infection, and the level of antigen present in the urine may be below the detection limit of the test. 12/31/17 17:12 Blood - Peripheral Aerobic Blood Culture - Preliminary No growth in 1 day 12/31/17 17:12 Blood - Peripheral Anaerobic Blood Culture - Preliminary No growth in 1 day 12/31/17 17:05 Blood - Peripheral Aerobic Blood Culture - Preliminary No growth in 1 day 12/31/17 17:05 Blood - Peripheral Anaerobic Blood Culture - Preliminary No growth in 1 day 12/31/17 10:05 Blood - Peripheral Aerobic Blood Culture - Preliminary No growth in 1 day 12/31/17 10:05 Blood - Peripheral Anaerobic Blood Culture - Preliminary No growth in 1 day 12/31/17 10:00 Blood - Peripheral Aerobic Blood Culture - Preliminary No growth in 1 day 12/31/17 10:00 Blood - Peripheral Anaerobic Blood Culture - Preliminary No growth in 1 day 12/31/17 15:25 Nasal Wash Influenza Types A,B Antigen - Final Negative for FLU A and B antigen Infection due to influenza A or B cannot be ruled out since the antigen present in the sample may be below the detection limit of the test. Lab - Hematology Results 12/31/17 01/01/18 05:10 10:04 WBC 12.4 H 7.9 RBC 4.18 L 3.89 L Hgb 13.1 12.3 L Hct 37.6 L 34.5 L MCV 89.9 88.6 MCH 31.3 31.7 MCHC 34.8 35.8 RDW 14.3 13.7 Plt Count 131 L 131 L MPV 8.0 8.1 Neut % (Auto) 85.0 H 80.4 H Lymph % (Auto) 6.5 L 8.8 L [place] % (Auto) 8.1 H 10.3 H Eos % (Auto) 0.3 0.4 Baso % (Auto) 0.1 0.1 Neut # (Auto) 10.6 H 6.3 Lymph # (Auto) 0.8 L 0.7 L [place] # (Auto) 1.0 H 0.8 Eos # (Auto) 0.0 0.0 Baso # (Auto) 0.0 0.0 WBC Differential . . Differential Comment Auto diff final Auto diff final Lab - Chemistry Results 12/31/17 12/31/17 12/31/17 00:17 05:10 10:05 Sodium 137 Potassium 3.7 Chloride 105 Carbon Dioxide 22.1 Anion Gap 10 BUN 10 Creatinine 0.72 Estimated GFR Greater than 89 Random Glucose 105 Lactic Acid 1.5 Calcium 8.5 Total Creatine Kinase 86 91 Troponin I 0.15 H 0.20 H TSH 1.620 01/01/18 10:04 Sodium 135 L Potassium 2.9 L* D Chloride 101 Carbon Dioxide 23.5 Anion Gap 11 BUN 5 L Creatinine 0.47 L Estimated GFR Greater than 89 Random Glucose 95 Lactic Acid Calcium 8.3 L Total Creatine Kinase Troponin I TSH Imaging: ITS Impressions Chest X-Ray 12/30/17 11:29 CONCLUSION: Bilateral mostly basilar lung fibrosis with volume loss. Elevated right hemidiaphragm with interposed bowel between right hemidiaphragm and liver. Previous sternotomy. Physical Exam: GENERAL: Patient is a well-nourished, well-developed male, awake and alert, not in respiratory distress. Looks comfortable at rest SKIN: Warm and dry. No generalized rash, no ecchymoses and no evidence of embolic lesions. HEAD: Atraumatic. Normocephalic. No temporal wasting, or tenderness. EYES: Merlin conjunctiva. No petechia or hemorrhage. Pupils equal, round and reactive to light. Extraocular movements full and intact. No scleral icterus. No injection or drainage. EARS, NOSE AND THROAT: Nose without bleeding or purulent nasal discharge. No sinus tenderness. Mucous membranes pink and moist. No oral lesions noted. No exudate. No oral thrush. NECK: Trachea midline. Supple and not tender, no meningeal signs CARDIOVASCULAR: Regular rate and rhythm. No murmurs, rubs or gallops heard RESPIRATORY: Coarse rales at both bases, with increased vocal fremitus. No rales, wheezing or rhonchi ABDOMEN: Soft, non-tender, nondistended. Bowel sounds present and normoactive. No guarding. No rebound. No organomegaly. EXTREMITIES: No clubbing, cyanosis, or edema. No joint effusion, has good ROM. No calf tenderness. Well perfused and warm. NEUROLOGICAL: Awake and alert. Cranial nerves grossly intact. Motor grossly within normal limits. PSYCHIATRIC: Normal affect, calm and cooperative. LINE: No evidence of infection Assessment and Plan - Plan Impression Febrile illness, likely due to pulmonary process - ?PNA vx COPD exacerbation - ?viral Known COPD, pulmonary fibrosis, asbestosis CAD, heart block Recommendation Check viral respiratory panel - will reorder Continue Levaquin for pulmonary coverage Follow temps Follow C/S Try and get sputum C/S C/S Monitor progress Explained plan to patient
[2018-01-01] MEDS ORDERED: Potassium Chlor 20 mEq Premix 20 MEQ/100 ML PIGGYBACK IV.SIG ONE (13:00)
--- NOTE | 2018-01-01 14:38 | ECHRPT ---
Indication: seosis endocarditis CONCLUSIONS Normal left ventricular size. Wall thickness is normal. The left ventricular systolic function is low normal with an estimated ejection fraction in the rang e of 50- 55%. Mitral annular calcification is present. mild to moderate mitral valve regurgitation. calcification of tip of posterior papillary muscle noted aortic valve mean gradient = 14 mm hg BP: / HR: Rhythm: MEASUREMENTS (Male / Female) Normal Values Technical Quality: 2D ECHO LV Diastolic Diameter PLAX 4.4 cm 4.2 - 5.9 / 3.9 - 5.3 cm IVS Diastolic Thickness 1.3 cm 0.6 - 1.0 / 0.6 - 0.9 cm LVPW Diastolic Thickness 0.9 cm 0.6 - 1.0 / 0.6 - 0.9 cm LV Relative Wall Thickness 0.5 RV Internal Dim ED PLAX 2.4 cm DOPPLER AV Peak Velocity 232.0 cm/s AV Peak Gradient 21.5 mmHg AV Mean Gradient 13.0 mmHg AV Velocity Time Integral 42.5 cm Mitral E Point Velocity 124.0 cm/s Mitral A Point Velocity 143.0 cm/s Mitral E to A Ratio 0.9 TR Peak Velocity 258.0 cm/s TR Peak Gradient 26.6 mmHg Right Atrial Pressure 10.0 mmHg Pulmonary Artery Systolic Pressu 36.6 mmHg Right Ventricular Systolic Press 36.6 mmHg FINDINGS LEFT VENTRICLE Normal left ventricular size. Wall thickness is normal. The left ventricular systolic function is low normal with an estimated ejection fraction in the rang e of 50- 55%. RIGHT VENTRICLE Normal right ventricular size and systolic function. LEFT ATRIUM The left atrial size is normal. RIGHT ATRIUM The right atrial size is normal. ATRIAL SEPTUM Normal atrial septal thickness without atrial level shunting by limited color doppler interrogation. AORTA The aortic root and proximal ascending aorta are normal in size on limited imaging. MITRAL VALVE Mitral annular calcification is present. Trace mitral valve regurgitation. AORTIC VALVE Trileaflet aortic valve. No aortic valve stenosis or regurgitation. TRICUSPID VALVE Structurally normal tricuspid valve. No tricuspid valve stenosis or regurgitation. PULMONARY VALVE No pulmonary valve regurgitation or stenosis. VESSELS The inferior vena cava is normal in size. PERICARDIUM No pericardial effusion. Farrukh Sanchez MD, FACC, FSCAI (Electronically Signed) Final Date:01 January 2018 14:37
--- NOTE | 2018-01-01 16:25 | P.PNCA ---
Subjective Interval history: + fever last night, 102.5 No chest/SOB when walking to use restroom Physical Exam Vital signs: Vital Signs 12/31/17 16:56 12/31/17 17:20 12/31/17 20:00 Temperature 101.1 F H 98.4 F Pulse Rate 87 102 H Respiratory Rate 17 Blood Pressure 119/65 Pulse Oximetry 95 01/01/18 00:00 01/01/18 04:00 01/01/18 08:03 Temperature 98 F Pulse Rate 91 H 107 H Respiratory Rate 16 20 Blood Pressure 143/68 H 151/80 H Pulse Oximetry 97 96 01/01/18 08:05 01/01/18 08:11 01/01/18 12:00 Temperature 98.0 F 98.1 F Pulse Rate 101 H 101 H 102 H Respiratory Rate 18 18 Blood Pressure 136/64 100/60 Pulse Oximetry 95 97 Intake & Output 12/31/17 01/01/18 01/01/18 18:59 06:59 18:59 Intake Total 1000 / 1000 1000 / 1000 Output Total 800 / 800 700 / 700 800 / 800 Balance -800 / -800 300 / 300 200 / 200 Intake: IV 1000 / 1000 1000 / 1000 NS Inj 1,000 ML @ 100 mls/hr IV 1000 / 1000 1000 / 1000 .CONT .Q10H [facility] Rx#:[id number] Output: Urine 800 / 800 700 / 700 800 / 800 Other: # Voids 1 # Bowel Movements 1 # Emeses 1 Narrative: GENERAL: Well-nourished, well-developed pleasant elderly male patient in [facility]. SKIN: Warm and dry. No rash. HEENT: Normocephalic. Atraumatic. Pupils equal and round. NECK: Supple. Trachea midline. CARDIOVASCULAR: Regular rate and rhythm. 1/6 systolic murmur noted. RESPIRATORY: No accessory muscle use. Faint rales at bilateral bases. Breath sounds equal bilaterally. GASTROINTESTINAL: Abdomen soft, non-tender, nondistended. Normoactive bowel sounds x4. MUSCULOSKELETAL: No obvious deformities. Extremities without clubbing, cyanosis , or edema. NEUROLOGICAL: Awake and alert. No obvious cranial nerve deficits. Moving all extremities spontaneously. Normal speech. PSYCHIATRIC: Appropriate mood and affect; insight and judgment normal. Assessment and Plan - Assessment (1) Leukocytosis Code(s): D72.829 - Elevated white blood cell count, unspecified Status: Acute (2) Fever and chills Code(s): R50.9 - Fever, unspecified Status: Acute (3) CAD (coronary artery disease) Code(s): I25.10 - Atherosclerotic heart disease of [place] coronary artery without angina pectoris Status: Acute (4) Hx of CABG Code(s): Z95.1 - Presence of aortocoronary bypass graft Status: Acute (5) Bradycardia Code(s): R00.1 - Bradycardia, unspecified Status: Acute (6) Elevated troponin Code(s): R74.8 - Abnormal levels of other serum enzymes Status: Acute - Plan 1) Weakness/malaise Most likely secondary to possible underlying infection? Did have second degree AV block, but now out of it, less likely the cause 2) Fever/chills ? 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
[2018-01-02] MEDS: Ranolazine 500 MG 12HR ER Tablet PO SCH ×2 (03:35→17:40)
[2018-01-02] MEDS: Isosorbide Mononitrate 60 MG ER 24HR Tablet (Imdur) PO SCH (06:18)
[2018-01-02] MEDS: Aspirin 325 MG Tablet PO SCH (10:19)
[2018-01-02] MEDS: Senna/Docusate Sodium 8.6/50 MG Tablet PO SCH ×2 (10:20→21:12)
[2018-01-02] MEDS: guaiFENesin 600 MG ER Tablet PO SCH ×2 (10:24→21:12)
--- NOTE | 2018-01-02 11:21 | P.PN ---
Subjective Interval history: Follow-up for generalized weakness, fatigue, fevers, pneumonia, second-degree AV block. Patient is doing well, resting in bed. Currently on nasal cannula. Denies any chest pain, fever, chills. He does have cough and requests Mucinex. Physical Exam Vital signs: Vital Signs 01/01/18 12:00 01/01/18 12:45 01/01/18 16:00 Temperature 98.1 F 98.4 F Pulse Rate 102 H 100 H 97 H Respiratory Rate 18 18 Blood Pressure 100/60 116/57 L Pulse Oximetry 97 96 01/01/18 16:30 01/01/18 20:00 01/02/18 00:00 Temperature 98.5 F Pulse Rate 96 H 106 H 105 H Respiratory Rate 17 Blood Pressure 120/71 Pulse Oximetry 97 01/02/18 01:04 01/02/18 04:00 01/02/18 08:00 Temperature 98.1 F 99.1 F 98.0 F Pulse Rate 116 H 115 H 110 H Respiratory Rate 18 20 16 Blood Pressure 154/81 H 131/68 134/73 Pulse Oximetry 95 93 L 94 L 01/02/18 11:03 Temperature Pulse Rate Respiratory Rate Blood Pressure Pulse Oximetry 94 L Intake & Output 01/01/18 01/02/18 01/02/18 18:59 06:59 18:59 Intake Total 1250 / 1250 480 / 480 Output Total 1100 / 1100 1275 / 1275 Balance 150 / 150 -795 / -795 Intake: IV 1250 / 1250 NS Inj 1,000 ML @ 100 mls/hr IV 1000 / 1000 .CONT .Q10H [facility] Rx#:[id number] Levaquin 750 mg Premix Inj 150 150 / 150 ML @ 100 mls/hr IV.SIG Q24H [facility] Rx#:[id number] KCl 20 mEq Premix Inj 20 meq In 100 / 100 100 ml @ 50 mls/hr IV.SIG ONCE ONE Rx#:[id number] Oral 480 / 480 Output: Urine 1100 / 1100 1275 / 1275 Other: Date of Last Bowel Movement 01/01/18 01/01/19 # Bowel Movements 1 Narrative: GENERAL: Well-nourished, well-developed pleasant elderly male patient in [facility]. SKIN: Warm and dry. No rash. HEENT: Normocephalic. Atraumatic. Pupils equal and round. NECK: Supple. Trachea midline. CARDIOVASCULAR: Regular rate and rhythm. 1/6 systolic murmur noted. RESPIRATORY: No accessory muscle use. Significant Bibasilar crackles Left more than right. GASTROINTESTINAL: Abdomen soft, non-tender, nondistended. Normoactive bowel sounds x4. MUSCULOSKELETAL: No obvious deformities. Extremities without clubbing, cyanosis , or edema. NEUROLOGICAL: Awake and alert. No obvious cranial nerve deficits. Moving all extremities spontaneously. Normal speech. PSYCHIATRIC: Appropriate mood and affect; insight and judgment normal. Results - Labs CBC & Chem 7: 01/01/18 10:04 01/02/18 09:35 Laboratory Results - last 24 hr 01/01/18 01/01/18 01/02/18 10:04 12:40 09:35 Sodium 135 L Potassium 2.9 L* D 3.0 L Chloride 101 Carbon Dioxide 23.5 Anion Gap 11 BUN 5 L Creatinine 0.47 L Estimated GFR Greater than 89 Random Glucose 95 Calcium 8.3 L Magnesium 1.9 Microbiology 12/31/17 17:12 Blood - Peripheral Aerobic Blood Culture - Preliminary No growth in 2 days 12/31/17 17:12 Blood - Peripheral Anaerobic Blood Culture - Preliminary No growth in 2 days 12/31/17 17:05 Blood - Peripheral Aerobic Blood Culture - Preliminary No growth in 2 days 12/31/17 17:05 Blood - Peripheral Anaerobic Blood Culture - Preliminary No growth in 2 days 12/31/17 10:05 Blood - Peripheral Aerobic Blood Culture - Preliminary No growth in 2 days 12/31/17 10:05 Blood - Peripheral Anaerobic Blood Culture - Preliminary No growth in 2 days 12/31/17 10:00 Blood - Peripheral Aerobic Blood Culture - Preliminary No growth in 2 days 12/31/17 10:00 Blood - Peripheral Anaerobic Blood Culture - Preliminary No growth in 2 days 12/31/17 20:15 Urine - Clean Catch Urine Streptococcus pneumoniae Antigen ( M - Final Presumptive negative for streptococcus pneumoniae antigen, suggesting no current or recent infection. Infection due to Streptococcus pneumoniae cannot be ruled out since the antigen present in the sample may be below the detection limit of the test. 12/31/17 20:15 Urine - Clean Catch Urine Legionella Antigen - Final Presumptive negative for Legionella pneumophila serogroup 1 antigen in urine, suggesting no recent or recurrent infection. Infection due to Legionella cannot be ruled out since other serogroups and species may cause disease, antigen may not be present in urine in early infection, and the level of antigen present in the urine may be below the detection limit of the test. - Imaging Chest X-Ray 12/30/17 11:29 CONCLUSION: Bilateral mostly basilar lung fibrosis with volume loss. Elevated right hemidiaphragm with interposed bowel between right hemidiaphragm and liver. Previous sternotomy. - Procedures Echo 01/01/2018 Normal left ventricular size. Wall thickness is normal. The left ventricular systolic function is low normal with an estimated ejection fraction in the range of 50- 55%. Mitral annular calcification is present. mild to moderate mitral valve regurgitation. calcification of tip of posterior papillary muscle noted aortic valve mean gradient = 14 mm hg Assessment and Plan - Plan 87-year-old male with a history of hypertension, coronary artery disease status post IL, stent, bypass, status post TAPVR, CVA and asbestosis. He presents to the emergency department complaining of generalized weakness for 1 day. States he also had a transient low-grade fever. Denies chills, cough, nausea, abdominal pain, UTI symptoms and diarrhea. No new medication changes. In the emergency room, workup for infection is unremarkable though he has leukocytosis and elevated troponin of 0.3 which is chronic for EMR review. EKG tracing shows sinus bradycardia with second-degree AV block. While in the kya, he developed brief mild chest discomfort that lasted for 1-2 minutes when he moved from the gurney to his bed. Sepsis (WBC 17.6K, and fever with Tmax 102.4. Suspected source-URI vs developing pneumonia vs viral illness. ) Probable Pneumonia Pulmonary fibrosis Probable Pulmonary asbestosis -Lactic acid 1.5 on 12/31/2017. -CXR shows Bilateral mostly basilar lung fibrosis with volume loss and elevated right hemidiaphragm -UA negative, Blood cultures NGTD. Influenza negative. -Continue on antibiotics with IV Levaquin. ID following. -Urinary legionella and pneumococcal antigens negative -d/c IV fluid. -WBC improved from 17.6 --> 7.9. Generalized weakness -Possibly related to infection/sepsis -PT consulted, recommends [facility] PT Second degree AV block Hypokalemia Mild Hypomagnesemia - Once cleared by ID, patient will likely undergo EP study. Cardiology following. - Currently tachycardic. - Will try to replete electrolytes to keep K+ around 4 and Mg > 2.0. - Start IV KCL IV 20meQ X 2 and PO KCL. Also will give Mag sulfate 1g IV. Elevated troponin -Trended troponins 0.30, 0.15, 0.20 - likely due to supply demand mismatch. -Continue aspirin, Plavix, Lipitor, Imdur. Also continue Ranexa. Full code. SCD and early ambulation.
[2018-01-02] MEDS ORDERED: Mag Sulf 1 gm/100 ml Premix 100 ML IV.SIG ONE (12:00)
--- NOTE | 2018-01-02 12:52 | P.PNID ---
Subjective Remarks: Patient is an 87-year-old male, presented to the hospital complaining of 2 day history of generalized weakness. Patient has known chronic lung disease, and in 1 of his CAT scan he was found to have fibrosis, and he was told that he has a touch of asbestosis. Normally he uses 3 L O2 24 hours a day. Patient has had a chronic cough for at least 10 years, but according to him it has gotten worse over the last 3 months. Patient was in his usual self until Saturday, December 29 when he suddenly experienced generalized weakness. He was feeling a little blah on Saturday, December 28, but he did not think much of it. On December 29 , he was just very weak, and any kind of exertion will make him really short of breath that he did not move much. His p.o. intake also has been very poor. Patient's usual cough is dry. He has not noticed that it was worse. He has had some subjective fevers and chills. Denies any sore throat. He had an episode of vomiting on the day of admission. Denies any nausea or any abdominal pain. Denies any dysuria, but he noted that his urine looks darker. He has not been exposed to any sick children. When he presented to the hospital his white count was 17,000. His chest x-ray shows that chronic basilar infiltrates and this is compared to his chest x-ray from February of last year. Last night his temperature went up to 100.3. At the time my exam he is complaining of chills. His WBC went down to 12,000. Patient is being evaluated by cardiology for AV block, and requested infectious disease consultation to evaluate the fever with plans of possibly doing EPS study. Infectious disease consultation has been requested to evaluate the patient. Notes reviewed Temps better States he feels a little better Cough looser since started on mucinex On 3L NC, baseline Hoarseness not worse BC negative WBC normal [place] and pneumo Ag negative INfluenza neg Antibiotics: Levaquin Lines: PIV no evid of infection Past Medical History: Asbestosis Bradycardia CAD (coronary artery disease) COPD (chronic obstructive pulmonary disease) Hypercholesterolemia Hypertension PNA (pneumonia) Pulmonary fibrosis, unspecified Aortic valve replaced History of angioplasty Hx of CABG Allergies/Adverse Reactions: Allergies iodine Allergy (Severe, Verified 12/30/17 12:43) Rash potassium iodide Allergy (Severe, Verified 12/30/17 12:43) Vomiting povidone-iodine Allergy (Severe, Verified 12/30/17 12:43) Rash sodium iodide Allergy (Severe, Verified 12/30/17 12:43) Rash crab Allergy (Mild, Verified 12/30/17 12:43) Hives ITCHING Objective Vital Signs 01/01/18 16:00 01/01/18 16:30 01/01/18 20:00 Temperature 98.4 F 98.5 F Pulse Rate 97 H 96 H 106 H Respiratory Rate 18 17 Blood Pressure 116/57 L 120/71 Pulse Oximetry 96 97 01/02/18 00:00 01/02/18 01:04 01/02/18 04:00 Temperature 98.1 F 99.1 F Pulse Rate 105 H 116 H 115 H Respiratory Rate 18 20 Blood Pressure 154/81 H 131/68 Pulse Oximetry 95 93 L 01/02/18 08:00 01/02/18 11:03 01/02/18 12:00 Temperature 98.0 F 98.4 F Pulse Rate 110 H 111 H Respiratory Rate 16 14 Blood Pressure 134/73 106/71 Pulse Oximetry 94 L 94 L 94 L Intake & Output 01/01/18 01/02/18 01/02/18 18:59 06:59 18:59 Intake Total 1250 / 1250 480 / 480 Output Total 1100 / 1100 1275 / 1275 Balance 150 / 150 -795 / -795 Intake: IV 1250 / 1250 NS Inj 1,000 ML @ 100 mls/hr IV 1000 / 1000 .CONT .Q10H [facility] Rx#:[id number] Levaquin 750 mg Premix Inj 150 150 / 150 ML @ 100 mls/hr IV.SIG Q24H [facility] Rx#:[id number] KCl 20 mEq Premix Inj 20 meq In 100 / 100 100 ml @ 50 mls/hr IV.SIG ONCE ONE Rx#:[id number] Oral 480 / 480 Output: Urine 1100 / 1100 1275 / 1275 Other: Date of Last Bowel Movement 01/01/18 01/01/19 # Bowel Movements 1 12/31/17 17:12 Blood - Peripheral Aerobic Blood Culture - Preliminary No growth in 2 days 12/31/17 17:12 Blood - Peripheral Anaerobic Blood Culture - Preliminary No growth in 2 days 12/31/17 17:05 Blood - Peripheral Aerobic Blood Culture - Preliminary No growth in 2 days 12/31/17 17:05 Blood - Peripheral Anaerobic Blood Culture - Preliminary No growth in 2 days 12/31/17 10:05 Blood - Peripheral Aerobic Blood Culture - Preliminary No growth in 2 days 12/31/17 10:05 Blood - Peripheral Anaerobic Blood Culture - Preliminary No growth in 2 days 12/31/17 10:00 Blood - Peripheral Aerobic Blood Culture - Preliminary No growth in 2 days 12/31/17 10:00 Blood - Peripheral Anaerobic Blood Culture - Preliminary No growth in 2 days 12/31/17 20:15 Urine - Clean Catch Urine Streptococcus pneumoniae Antigen ( M - Final Presumptive negative for streptococcus pneumoniae antigen, suggesting no current or recent infection. Infection due to Streptococcus pneumoniae cannot be ruled out since the antigen present in the sample may be below the detection limit of the test. 12/31/17 20:15 Urine - Clean Catch Urine Legionella Antigen - Final Presumptive negative for Legionella pneumophila serogroup 1 antigen in urine, suggesting no recent or recurrent infection. Infection due to Legionella cannot be ruled out since other serogroups and species may cause disease, antigen may not be present in urine in early infection, and the level of antigen present in the urine may be below the detection limit of the test. 12/31/17 15:25 Nasal Wash Influenza Types A,B Antigen - Final Negative for FLU A and B antigen Infection due to influenza A or B cannot be ruled out since the antigen present in the sample may be below the detection limit of the test. Lab - Hematology Results 01/01/18 10:04 WBC 7.9 RBC 3.89 L Hgb 12.3 L Hct 34.5 L MCV 88.6 MCH 31.7 MCHC 35.8 RDW 13.7 Plt Count 131 L MPV 8.1 Neut % (Auto) 80.4 H Lymph % (Auto) 8.8 L Johnson % (Auto) 10.3 H Eos % (Auto) 0.4 Baso % (Auto) 0.1 Neut # (Auto) 6.3 Lymph # (Auto) 0.7 L Johnson # (Auto) 0.8 Eos # (Auto) 0.0 Baso # (Auto) 0.0 WBC Differential . Differential Comment Auto diff final Lab - Chemistry Results 01/01/18 01/01/18 01/02/18 10:04 12:40 09:35 Sodium 135 L Potassium 2.9 L* D 3.0 L Chloride 101 Carbon Dioxide 23.5 Anion Gap 11 BUN 5 L Creatinine 0.47 L Estimated GFR Greater than 89 Random Glucose 95 Calcium 8.3 L Magnesium 1.9 Imaging: ITS Impressions Chest X-Ray 12/30/17 11:29 CONCLUSION: Bilateral mostly basilar lung fibrosis with volume loss. Elevated right hemidiaphragm with interposed bowel between right hemidiaphragm and liver. Previous sternotomy. Physical Exam: GENERAL: awake and alert, not in respiratory distress. Looks comfortable at rest SKIN: Warm and dry. No generalized rash, no ecchymoses and no evidence of embolic lesions. HEAD: Atraumatic. Normocephalic. No temporal wasting, or tenderness. EYES: [place] conjunctiva. No petechia or hemorrhage. Pupils equal, round and reactive to light. Extraocular movements full and intact. No scleral icterus. No injection or drainage. EARS, NOSE AND THROAT: Nose without bleeding or purulent nasal discharge. No sinus tenderness. Mucous membranes pink and moist. NECK: Trachea midline. Supple and not tender, no meningeal signs CARDIOVASCULAR: Regular rate and rhythm. No murmurs, rubs or gallops heard RESPIRATORY: Coarse rales at both bases. No wheezing or rhonchi ABDOMEN: Soft, non-tender, nondistended. Bowel sounds present and normoactive. No guarding. No rebound. No organomegaly. EXTREMITIES: No clubbing, cyanosis, or edema. No joint effusion, has good ROM. No calf tenderness. Well perfused and warm. NEUROLOGICAL: Non-focal. PSYCHIATRIC: Normal affect, calm and cooperative. LINE: No evidence of infection Assessment and Plan - Plan Impression Febrile illness, likely due to pulmonary process - ?PNA vx COPD exacerbation - ?viral Known COPD, pulmonary fibrosis, asbestosis CAD, heart block Recommendation Continue Levaquin for pulmonary coverage - change to po Follow temps Follow C/S Monitor progress Repeat CXR tomorrow If temps ok and BC negative should be able to get EP Explained plan to patient D/W Dr Estevan Farias (charhouse worker)
--- NOTE | 2018-01-02 13:14 | P.PNCA ---
Subjective Interval history: No events overnight Feeling better Physical Exam Vital signs: Vital Signs 01/01/18 16:00 01/01/18 16:30 01/01/18 20:00 Temperature 98.4 F 98.5 F Pulse Rate 97 H 96 H 106 H Respiratory Rate 18 17 Blood Pressure 116/57 L 120/71 Pulse Oximetry 96 97 01/02/18 00:00 01/02/18 01:04 01/02/18 04:00 Temperature 98.1 F 99.1 F Pulse Rate 105 H 116 H 115 H Respiratory Rate 18 20 Blood Pressure 154/81 H 131/68 Pulse Oximetry 95 93 L 01/02/18 08:00 01/02/18 11:03 01/02/18 12:00 Temperature 98.0 F 98.4 F Pulse Rate 110 H 111 H Respiratory Rate 16 14 Blood Pressure 134/73 106/71 Pulse Oximetry 94 L 94 L 94 L Intake & Output 01/01/18 01/02/18 01/02/18 18:59 06:59 18:59 Intake Total 1250 / 1250 480 / 480 Output Total 1100 / 1100 1275 / 1275 Balance 150 / 150 -795 / -795 Intake: IV 1250 / 1250 NS Inj 1,000 ML @ 100 mls/hr IV 1000 / 1000 .CONT .Q10H [facility] Rx#:[id number] Levaquin 750 mg Premix Inj 150 150 / 150 ML @ 100 mls/hr IV.SIG Q24H [facility] Rx#:[id number] KCl 20 mEq Premix Inj 20 meq In 100 / 100 100 ml @ 50 mls/hr IV.SIG ONCE ONE Rx#:[id number] Oral 480 / 480 Output: Urine 1100 / 1100 1275 / 1275 Other: Date of Last Bowel Movement 01/01/18 01/01/19 # Bowel Movements 1 Narrative: GENERAL: Well-nourished, well-developed pleasant elderly male patient in [facility]. SKIN: Warm and dry. No rash. HEENT: Normocephalic. Atraumatic. Pupils equal and round. NECK: Supple. Trachea midline. CARDIOVASCULAR: Regular rate and rhythm. 1/6 systolic murmur noted. RESPIRATORY: No accessory muscle use. Significant Bibasilar crackles Left more than right. GASTROINTESTINAL: Abdomen soft, non-tender, nondistended. Normoactive bowel sounds x4. MUSCULOSKELETAL: No obvious deformities. Extremities without clubbing, cyanosis , or edema. NEUROLOGICAL: Awake and alert. No obvious cranial nerve deficits. Moving all extremities spontaneously. Normal speech. PSYCHIATRIC: Appropriate mood and affect; insight and judgment normal. Assessment and Plan - Assessment (1) Leukocytosis Code(s): D72.829 - Elevated white blood cell count, unspecified Status: Acute (2) Fever and chills Code(s): R50.9 - Fever, unspecified Status: Acute (3) CAD (coronary artery disease) Code(s): I25.10 - Atherosclerotic heart disease of [place] coronary artery without angina pectoris Status: Acute (4) Hx of CABG Code(s): Z95.1 - Presence of aortocoronary bypass graft Status: Acute (5) Bradycardia Code(s): R00.1 - Bradycardia, unspecified Status: Acute (6) Elevated troponin Code(s): R74.8 - Abnormal levels of other serum enzymes Status: Acute - Plan 1) Weakness/malaise Most likely secondary to possible underlying infection? Did have second degree AV block, but now out of it, less likely the cause 2) Fever/chills ? 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
[2018-01-02] MEDS: Potassium Chlor 20 mEq Premix 20 MEQ/100 ML PIGGYBACK IV.SIG SCH ×2 (13:39→17:40)
[2018-01-02] MEDS: levoFLOXacin 750 MG Tablet PO SCH (13:42)
--- NOTE | 2018-01-02 13:57 | P.DCO ---
- Physical Therapy Order: Evaluate and treat, Improve ambulation, Strength and gait training - Home Health Nursing Order: Medical education, Signs/symptoms of disease process, Medication education-adverse effect, Nursing assessment with vital signs - Certification I have seen patient Arun Shepard on 01/02/18. My clinical findings support the need for the requested home health care services because: Limited mobility due to disease progression, Patient has SOB, Deconditioned with increased weakness, Medication compliance is questionable, Limited ability to care for self, Need for psychosocial assistance, Impaired cognition/judgement , High risk of falls, Infection with risk of complications I certify that my clinical findings support that this patient is homebound because: Unsafe to leave home unassisted, Need for psychosocial assistance, Non- ambulatory: confined to bed or chair, Unable to use public transportation, Poor cardiac reserve
[2018-01-03] MEDS: Ranolazine 500 MG 12HR ER Tablet PO SCH ×2 (04:10→15:33)
[2018-01-03] MEDS: Isosorbide Mononitrate 60 MG ER 24HR Tablet (Imdur) PO SCH (06:23)
--- NOTE | 2018-01-03 08:27 | XR ---
EXAM DATE: 01/03/2018 8:04 AM EDT AGE/SEX: 87 years / Male INDICATIONS: . Shortness of breath, concern for pneumonia. CLINICAL DATA: This is the patient's initial encounter. Patient reports that signs and symptoms have been present for 2 days and indicates a pain score of 0/10. MEDICAL/SURGICAL HISTORY: Myocardial infarction. Hypertension. Stroke. Cardiovascular diseas e. CABG. Cardiac stent. Valve replacement, unspecified. Cardiac catheterization. COMPARISON: [facility] [place], CHEST 1V SINGLE AP, 12/30/2017. . FINDINGS: AP and lateral views of the chest demonstrate stable fibrotic changes predominantly in the lung bases . I do not see a superimposed acute infiltrate when compared to the prior. As noted previously, patie nt demonstrates [place]ila[place]iti's sign with bowel interposed between the dome of the liver and right diaph ragm. Heart size is normal. Findings of prior TAVR. Intact median sternotomy wires. Osseous structure s are intact. CONCLUSION: 1. Stable fibrotic changes predominantly in the bases. 2. Stable postsurgical changes with intact median sternotomy wires. Prior TAVR. Electronically signed by: Dank Gomez MD 01/03/2018 8:26 AM EDT
[2018-01-03] MEDS: Aspirin 325 MG Tablet PO SCH (09:33)
[2018-01-03] MEDS: levoFLOXacin 750 MG Tablet PO SCH (09:33)
[2018-01-03] MEDS: Senna/Docusate Sodium 8.6/50 MG Tablet PO SCH (09:33)
[2018-01-03] MEDS: guaiFENesin 600 MG ER Tablet PO SCH (09:33)
--- NOTE | 2018-01-03 10:17 | P.PN ---
Subjective Interval history: F/U sepsis. States he is doing okay ambulating on nasal cannula which he uses at home. Discussed with ID and cardiology, stable for discharge Physical Exam Vital signs: Vital Signs 01/02/18 11:03 01/02/18 12:00 01/02/18 16:00 Temperature 98.4 F 98.2 F Pulse Rate 111 H 110 H Respiratory Rate 14 16 Blood Pressure 106/71 136/80 Pulse Oximetry 94 L 94 L 94 L 01/02/18 20:00 01/03/18 00:00 01/03/18 04:00 Temperature 98.5 F 98.6 F 98.7 F Pulse Rate 105 H 98 H 104 H Respiratory Rate 20 22 22 Blood Pressure 139/77 145/69 H 134/82 Pulse Oximetry 93 L 94 L 96 Intake & Output 01/02/18 01/03/18 01/03/18 18:59 06:59 18:59 Intake Total 100 / 100 480 / 480 Output Total 750 / 750 1200 / 1200 Balance -650 / -650 -720 / -720 Intake: IV 100 / 100 KCl 20 mEq Premix Inj 20 meq In 100 / 100 100 ml @ 50 mls/hr IV.SIG Q2H [facility] Rx#:[id number] Oral 480 / 480 Output: Urine 750 / 750 1200 / 1200 Other: Date of Last Bowel Movement 01/01/19 01/01/19 01/02/18 Narrative: GENERAL: Well-nourished, well-developed pleasant elderly male patient in [facility]. SKIN: Warm and dry. No rash. CARDIOVASCULAR: Regular rate and rhythm. 1/6 systolic murmur noted. RESPIRATORY: No accessory muscle use. Significant Bibasilar crackles Left more than right. GASTROINTESTINAL: Abdomen soft, non-tender, nondistended. Normoactive bowel sounds x4. MUSCULOSKELETAL: No obvious deformities. Extremities without clubbing, cyanosis , or edema. NEUROLOGICAL: Awake and alert. No obvious cranial nerve deficits. Moving all extremities spontaneously. Normal speech. Results - Labs CBC & Chem 7: 01/01/18 10:04 01/03/18 11:38 Laboratory Results - last 24 hr 01/02/18 09:35 Potassium 3.0 L Microbiology 12/31/17 17:12 Blood - Peripheral Aerobic Blood Culture - Preliminary No growth in 2 days 12/31/17 17:12 Blood - Peripheral Anaerobic Blood Culture - Preliminary No growth in 2 days 12/31/17 17:05 Blood - Peripheral Aerobic Blood Culture - Preliminary No growth in 2 days 12/31/17 17:05 Blood - Peripheral Anaerobic Blood Culture - Preliminary No growth in 2 days 12/31/17 10:05 Blood - Peripheral Aerobic Blood Culture - Preliminary No growth in 2 days 12/31/17 10:05 Blood - Peripheral Anaerobic Blood Culture - Preliminary No growth in 2 days 12/31/17 10:00 Blood - Peripheral Aerobic Blood Culture - Preliminary No growth in 2 days 12/31/17 10:00 Blood - Peripheral Anaerobic Blood Culture - Preliminary No growth in 2 days - Imaging ImpressionsITS Impressions Chest X-Ray 01/03/18 00:00 CONCLUSION: 1. Stable fibrotic changes predominantly in the bases. 2. Stable postsurgical changes with intact median sternotomy wires. Prior TAVR. - Procedures Echo 01/01/2018 Normal left ventricular size. Wall thickness is normal. The left ventricular systolic function is low normal with an estimated ejection fraction in the range of 50- 55%. Mitral annular calcification is present. mild to moderate mitral valve regurgitation. calcification of tip of posterior papillary muscle noted aortic valve mean gradient = 14 mm hg Assessment and Plan - Assessment (1) Bradycardia Code(s): R00.1 - Bradycardia, unspecified Status: Acute (2) Elevated troponin Code(s): R74.8 - Abnormal levels of other serum enzymes Status: Acute (3) CAD (coronary artery disease) Code(s): I25.10 - Atherosclerotic heart disease of [place] coronary artery without angina pectoris Status: Acute (4) Hx of CABG Code(s): Z95.1 - Presence of aortocoronary bypass graft Status: Acute - Plan 87-year-old male with a history of hypertension, coronary artery disease status post AR, stent, bypass, status post TAPVR, CVA and asbestosis. He presents to the emergency department complaining of generalized weakness for 1 day. States he also had a transient low-grade fever. Denies chills, cough, nausea, abdominal pain, UTI symptoms and diarrhea. No new medication changes. In the emergency room, workup for infection is unremarkable though he has leukocytosis and elevated troponin of 0.3 which is chronic for EMR review. EKG tracing shows sinus bradycardia with second-degree AV block. While in the kay, he developed brief mild chest discomfort that lasted for 1-2 minutes when he moved from the gurney to his bed. Sepsis (WBC 17.6K, and fever with Tmax 102.4. Suspected source-URI vs developing pneumonia vs viral illness. ) Probable Pneumonia Pulmonary fibrosis Probable Pulmonary asbestosis -Lactic acid 1.5 on 12/31/2017. -CXR shows Bilateral mostly basilar lung fibrosis with volume loss and elevated right hemidiaphragm -UA negative, Blood cultures NGTD. Influenza negative. -Continue on antibiotics with Levaquin for 7 more days. ID following. -Urinary legionella and pneumococcal antigens negative -d/c IV fluid. -WBC improved from 17.6 --> 7.9. Generalized weakness -Possibly related to infection/sepsis -PT consulted, recommends [facility] PT Second degree AV block Hypokalemia Mild Hypomagnesemia - Cleared by ID, patient will likely undergo EP study. Per cardiology, no EP study indicated at this time. - Will try to replete electrolytes to keep K+ around 4 and Mg > 2.0. Elevated troponin history of complex CAD with a lesion of the LINDO into the LAD which has been treated medically -Trended troponins 0.30, 0.15, 0.20 - likely due to supply demand mismatch. -Continue aspirin, Plavix, Lipitor, Imdur. Also continue Ranexa. Full code. SCD and early ambulation. Subcu heparin Discharge Planning: [facility] vs rehab
[2018-01-03 12:14] LABS: Anion Gap 9 meq/L (5-15); Blood Urea Nitrogen 5 mg/dL (7-18); Calcium 8.2 mg/dL (8.5-10.1); Carbon Dioxide 24.2 meq/L (21.0-32.0); Chloride 99 meq/L (98-107); Glomerular Filtration Rate Greater Than 89 mL/min (>89); Glucose,Random 106 mg/dL (74-106); Potassium 3.5 meq/L (3.5-5.1); Sodium 132 meq/L (136-145)
[2018-01-03 13:48] VITALS: BP 126/71; PULSE 100; RESP 20; TEMP 98.1; O2SAT 95
[2018-01-03] MEDS ORDERED: Heparin - SQ 10,000 UNITS/ML Vial SQ SCH (14:00)
--- NOTE | 2018-01-03 14:05 | P.PNCA ---
Subjective Interval history: No events overnight, feels better Physical Exam Vital signs: Vital Signs 01/02/18 16:00 01/02/18 20:00 01/03/18 00:00 Temperature 98.2 F 98.5 F 98.6 F Pulse Rate 110 H 105 H 98 H Respiratory Rate 16 20 22 Blood Pressure 136/80 139/77 145/69 H Pulse Oximetry 94 L 93 L 94 L 01/03/18 04:00 01/03/18 12:00 Temperature 98.7 F 98.1 F Pulse Rate 104 H 100 H Respiratory Rate 22 20 Blood Pressure 134/82 126/71 Pulse Oximetry 96 95 Intake & Output 01/02/18 01/03/18 01/03/18 18:59 06:59 18:59 Intake Total 100 / 100 480 / 480 Output Total 750 / 750 1200 / 1200 Balance -650 / -650 -720 / -720 Intake: IV 100 / 100 KCl 20 mEq Premix Inj 20 meq In 100 / 100 100 ml @ 50 mls/hr IV.SIG Q2H [facility] Rx#:[id number] Oral 480 / 480 Output: Urine 750 / 750 1200 / 1200 Other: Date of Last Bowel Movement 01/01/19 01/01/19 01/02/18 Narrative: GENERAL: Well-nourished, well-developed pleasant elderly male patient in [facility]. SKIN: Warm and dry. No rash. HEENT: Normocephalic. Atraumatic. Pupils equal and round. NECK: Supple. Trachea midline. CARDIOVASCULAR: Regular rate and rhythm. 1/6 systolic murmur noted. RESPIRATORY: No accessory muscle use. Significant Bibasilar crackles Left more than right. GASTROINTESTINAL: Abdomen soft, non-tender, nondistended. Normoactive bowel sounds x4. MUSCULOSKELETAL: No obvious deformities. Extremities without clubbing, cyanosis , or edema. NEUROLOGICAL: Awake and alert. No obvious cranial nerve deficits. Moving all extremities spontaneously. Normal speech. PSYCHIATRIC: Appropriate mood and affect; insight and judgment normal. Assessment and Plan - Assessment (1) Leukocytosis Code(s): D72.829 - Elevated white blood cell count, unspecified Status: Acute (2) Fever and chills Code(s): R50.9 - Fever, unspecified Status: Acute (3) CAD (coronary artery disease) Code(s): I25.10 - Atherosclerotic heart disease of [place] coronary artery without angina pectoris Status: Acute (4) Hx of CABG Code(s): Z95.1 - Presence of aortocoronary bypass graft Status: Acute (5) Bradycardia Code(s): R00.1 - Bradycardia, unspecified Status: Acute (6) Elevated troponin Code(s): R74.8 - Abnormal levels of other serum enzymes Status: Acute - Plan 1) Weakness/malaise Most likely secondary to possible underlying infection? 2) Fever/chills ? 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 Seen by Dr. Byrne Ogema to be U-wave, no further work up 5) Called patient's son who is a spinal surgeon in [place] Left a message on voicemail with my number to call 6) No further cardiovascular work up Can be discharged from a cardiovascular standpoint
--- NOTE | 2018-01-03 15:36 | P.PNID ---
Subjective Remarks: Patient is an 87-year-old male, presented to the hospital complaining of 2 day history of generalized weakness. Patient has known chronic lung disease, and in 1 of his CAT scan he was found to have fibrosis, and he was told that he has a touch of asbestosis. Normally he uses 3 L O2 24 hours a day. Patient has had a chronic cough for at least 10 years, but according to him it has gotten worse over the last 3 months. Patient was in his usual self until Saturday, December 29 when he suddenly experienced generalized weakness. He was feeling a little blah on Saturday, December 28, but he did not think much of it. On December 29 , he was just very weak, and any kind of exertion will make him really short of breath that he did not move much. His p.o. intake also has been very poor. Patient's usual cough is dry. He has not noticed that it was worse. He has had some subjective fevers and chills. Denies any sore throat. He had an episode of vomiting on the day of admission. Denies any nausea or any abdominal pain. Denies any dysuria, but he noted that his urine looks darker. He has not been exposed to any sick children. When he presented to the hospital his white count was 17,000. His chest x-ray shows that chronic basilar infiltrates and this is compared to his chest x-ray from February of last year. Last night his temperature went up to 100.3. At the time my exam he is complaining of chills. His WBC went down to 12,000. Patient is being evaluated by cardiology for AV block, and requested infectious disease consultation to evaluate the fever with plans of possibly doing EPS study. Infectious disease consultation has been requested to evaluate the patient. Notes reviewed Temps better Clinically better CXR stable Antibiotics: Levaquin Lines: PIV no evid of infection Past Medical History: Asbestosis Bradycardia CAD (coronary artery disease) COPD (chronic obstructive pulmonary disease) Hypercholesterolemia Hypertension PNA (pneumonia) Pulmonary fibrosis, unspecified Aortic valve replaced History of angioplasty Hx of CABG Allergies/Adverse Reactions: Allergies iodine Allergy (Severe, Verified 12/30/17 12:43) Rash potassium iodide Allergy (Severe, Verified 12/30/17 12:43) Vomiting povidone-iodine Allergy (Severe, Verified 12/30/17 12:43) Rash sodium iodide Allergy (Severe, Verified 12/30/17 12:43) Rash crab Allergy (Mild, Verified 12/30/17 12:43) Hives ITCHING Objective Vital Signs 01/02/18 16:00 01/02/18 20:00 01/03/18 00:00 Temperature 98.2 F 98.5 F 98.6 F Pulse Rate 110 H 105 H 98 H Respiratory Rate 16 20 22 Blood Pressure 136/80 139/77 145/69 H Pulse Oximetry 94 L 93 L 94 L 01/03/18 04:00 01/03/18 12:00 Temperature 98.7 F 98.1 F Pulse Rate 104 H 100 H Respiratory Rate 22 20 Blood Pressure 134/82 126/71 Pulse Oximetry 96 95 Intake & Output 01/02/18 01/03/18 01/03/18 18:59 06:59 18:59 Intake Total 100 / 100 480 / 480 Output Total 750 / 750 1200 / 1200 Balance -650 / -650 -720 / -720 Intake: IV 100 / 100 KCl 20 mEq Premix Inj 20 meq In 100 / 100 100 ml @ 50 mls/hr IV.SIG Q2H HOPE Rx#:[id number] Oral 480 / 480 Output: Urine 750 / 750 1200 / 1200 Other: Date of Last Bowel Movement 01/01/19 01/01/19 01/02/18 12/31/17 17:12 Blood - Peripheral Aerobic Blood Culture - Preliminary No growth in 3 days 12/31/17 17:12 Blood - Peripheral Anaerobic Blood Culture - Preliminary No growth in 3 days 12/31/17 17:05 Blood - Peripheral Aerobic Blood Culture - Preliminary No growth in 3 days 12/31/17 17:05 Blood - Peripheral Anaerobic Blood Culture - Preliminary No growth in 3 days 12/31/17 10:05 Blood - Peripheral Aerobic Blood Culture - Preliminary No growth in 3 days 12/31/17 10:05 Blood - Peripheral Anaerobic Blood Culture - Preliminary No growth in 3 days 12/31/17 10:00 Blood - Peripheral Aerobic Blood Culture - Preliminary No growth in 3 days 12/31/17 10:00 Blood - Peripheral Anaerobic Blood Culture - Preliminary No growth in 3 days 12/31/17 20:15 Urine - Clean Catch Urine Streptococcus pneumoniae Antigen ( M - Final Presumptive negative for streptococcus pneumoniae antigen, suggesting no current or recent infection. Infection due to Streptococcus pneumoniae cannot be ruled out since the antigen present in the sample may be below the detection limit of the test. 12/31/17 20:15 Urine - Clean Catch Urine Legionella Antigen - Final Presumptive negative for Legionella pneumophila serogroup 1 antigen in urine, suggesting no recent or recurrent infection. Infection due to Legionella cannot be ruled out since other serogroups and species may cause disease, antigen may not be present in urine in early infection, and the level of antigen present in the urine may be below the detection limit of the test. 12/31/17 15:25 Nasal Wash Influenza Types A,B Antigen - Final Negative for FLU A and B antigen Infection due to influenza A or B cannot be ruled out since the antigen present in the sample may be below the detection limit of the test. Lab - Chemistry Results 01/02/18 01/03/18 09:35 11:38 Sodium 132 L Potassium 3.0 L 3.5 Chloride 99 Carbon Dioxide 24.2 Anion Gap 9 BUN 5 L Creatinine 0.59 L Estimated GFR Greater than 89 Random Glucose 106 Calcium 8.2 L Magnesium 2.0 Imaging: ITS Impressions Chest X-Ray 01/03/18 00:00 CONCLUSION: 1. Stable fibrotic changes predominantly in the bases. 2. Stable postsurgical changes with intact median sternotomy wires. Prior TAVR. Physical Exam: GENERAL: awake and alert, not in respiratory distress. Looks comfortable at rest SKIN: Warm and dry. No generalized rash, no ecchymoses and no evidence of embolic lesions. HEAD: Atraumatic. Normocephalic. No temporal wasting, or tenderness. EYES: [place] conjunctiva. No petechia or hemorrhage. Pupils equal, round and reactive to light. Extraocular movements full and intact. No scleral icterus. No injection or drainage. EARS, NOSE AND THROAT: Nose without bleeding or purulent nasal discharge. No sinus tenderness. Mucous membranes pink and moist. NECK: Trachea midline. Supple and not tender, no meningeal signs CARDIOVASCULAR: Regular rate and rhythm. No murmurs, rubs or gallops heard RESPIRATORY: Coarse rales at both bases. No wheezing or rhonchi ABDOMEN: Soft, non-tender, nondistended. Bowel sounds present and normoactive. No guarding. No rebound. No organomegaly. EXTREMITIES: No clubbing, cyanosis, or edema. No joint effusion, has good ROM. No calf tenderness. Well perfused and warm. NEUROLOGICAL: Non-focal. PSYCHIATRIC: Normal affect, calm and cooperative. LINE: No evidence of infection Assessment and Plan - Plan Impression Febrile illness, likely due to pulmonary process - likely PNA Known COPD, pulmonary fibrosis, asbestosis CAD, heart block Recommendation Continue Levaquin - give 7 more days Abx on D/C OK to D/C today D[facility]
--- NOTE | 2018-01-03 17:06 | P.DS ---
Date of admission: 12/30/17 14:30 Primary care physician: UNKNOWN Brief History from admission: This is a 87-year-old male with a history of hypertension, coronary artery disease status post DC, stent, bypass, status post TAPVR, CVA and asbestosis. Family history of coronary artery disease. He presents to the emergency department complaining of generalized weakness for 1 day. States he also had a transient low-grade fever. Denies chills, cough, nausea, abdominal pain, UTI symptoms and diarrhea. No new medication changes. In the emergency room, workup for infection is unremarkable though he has leukocytosis and elevated troponin of 0.3 which is chronic for EMR review. EKG tracing interpreted by me shows sinus bradycardia with second-degree AV block Mobitz type II. While in the kay, he developed brief mild chest discomfort that lasted for 1-2 minutes when he moved from the gurney to his bed. All other systems reviewed negative DS: Diagnosis - Discharge Diagnosis (1) Bradycardia Status: Acute (2) Elevated troponin Status: Acute (3) CAD (coronary artery disease) Status: Acute (4) Hx of CABG Status: Acute DS: Medications - Discharge Medications Prescriptions: levofloxacin 750 mg PO DAILY #7 tab DS: Summary Hospital Course: 87-year-old male with a history of hypertension, coronary artery disease status post DC, stent, bypass, status post TAPVR, CVA and asbestosis. He presents to the emergency department complaining of generalized weakness for 1 day. States he also had a transient low-grade fever. Denies chills, cough, nausea, abdominal pain, UTI symptoms and diarrhea. No new medication changes. In the emergency room, workup for infection is unremarkable though he has leukocytosis and elevated troponin of 0.3 which is chronic for EMR review. EKG tracing shows sinus bradycardia with second-degree AV block. While in the kay, he developed brief mild chest discomfort that lasted for 1-2 minutes when he moved from the gurney to his bed. Sepsis (WBC 17.6K, and fever with Tmax 102.4. Suspected source-URI vs developing pneumonia vs viral illness. ) Probable Pneumonia Pulmonary fibrosis Probable Pulmonary asbestosis -Lactic acid 1.5 on 12/31/2017. -CXR shows Bilateral mostly basilar lung fibrosis with volume loss and elevated right hemidiaphragm -UA negative, Blood cultures NGTD. Influenza negative. -Continue on antibiotics with Levaquin for 7 more days. ID following. -Urinary legionella and pneumococcal antigens negative -d/c IV fluid. -WBC improved from 17.6 --> 7.9. Generalized weakness -Possibly related to infection/sepsis -PT consulted, recommends [facility] PT Second degree AV block Hypokalemia Mild Hypomagnesemia - Cleared by ID, patient will likely undergo EP study. Per cardiology, no EP study indicated at this time. - Will try to replete electrolytes to keep K+ around 4 and Mg > 2.0. Elevated troponin history of complex CAD with a lesion of the LINDO into the LAD which has been treated medically -Trended troponins 0.30, 0.15, 0.20 - likely due to supply demand mismatch. -Continue aspirin, Plavix, Lipitor, Imdur. Also continue Ranexa. Full code. SCD and early ambulation. Subcu heparin - Time Spent with Patient Total time spent providing and/or coordinating discharge services: Greater than 30 minutes - Quality: VTE Deep Vein Thrombosis/Pulmonary Embolism Present on Admission: No Exam Vital signs: Vital Signs 01/02/18 20:00 01/03/18 00:00 01/03/18 04:00 Temperature 98.5 F 98.6 F 98.7 F Pulse Rate 105 H 98 H 104 H Respiratory Rate 20 22 22 Blood Pressure 139/77 145/69 H 134/82 Pulse Oximetry 93 L 94 L 96 01/03/18 12:00 Temperature 98.1 F Pulse Rate 100 H Respiratory Rate 20 Blood Pressure 126/71 Pulse Oximetry 95 Intake & Output 01/02/18 01/03/18 01/03/18 18:59 06:59 18:59 Intake Total 100 / 100 480 / 480 Output Total 750 / 750 1200 / 1200 Balance -650 / -650 -720 / -720 Intake: IV 100 / 100 KCl 20 mEq Premix Inj 20 meq In 100 / 100 100 ml @ 50 mls/hr IV.SIG Q2H HOPE Rx#:[id number] Oral 480 / 480 Output: Urine 750 / 750 1200 / 1200 Other: Date of Last Bowel Movement 01/01/19 01/01/19 01/02/18 Narrative: GENERAL: Well-nourished, well-developed pleasant elderly male patient in [facility]. SKIN: Warm and dry. No rash. CARDIOVASCULAR: Regular rate and rhythm. 1/6 systolic murmur noted. RESPIRATORY: No accessory muscle use. Significant Bibasilar crackles Left more than right. GASTROINTESTINAL: Abdomen soft, non-tender, nondistended. Normoactive bowel sounds x4. MUSCULOSKELETAL: No obvious deformities. Extremities without clubbing, cyanosis , or edema. NEUROLOGICAL: Awake and alert. No obvious cranial nerve deficits. Moving all extremities spontaneously. Normal speech. Results Procedures completed during hospitalization: Echo 01/01/2018 Normal left ventricular size. Wall thickness is normal. The left ventricular systolic function is low normal with an estimated ejection fraction in the range of 50- 55%. Mitral annular calcification is present. mild to moderate mitral valve regurgitation. calcification of tip of posterior papillary muscle noted aortic valve mean gradient = 14 mm hg Labs on day of discharge: Labs from last 24 hours 01/03/18 11:38 Sodium 132 L Potassium 3.5 Chloride 99 Carbon Dioxide 24.2 Anion Gap 9 BUN 5 L Creatinine 0.59 L Estimated GFR Greater than 89 Random Glucose 106 Calcium 8.2 L Magnesium 2.0 Preliminary micro results at discharge 12/31/17 17:12 Aerobic Blood Culture - Preliminary Blood - Peripheral No growth in 3 days Anaerobic Blood Culture - Preliminary No growth in 3 days 12/31/17 17:05 Aerobic Blood Culture - Preliminary Blood - Peripheral No growth in 3 days Anaerobic Blood Culture - Preliminary No growth in 3 days 12/31/17 10:05 Aerobic Blood Culture - Preliminary Blood - Peripheral No growth in 3 days Anaerobic Blood Culture - Preliminary No growth in 3 days 12/31/17 10:00 Aerobic Blood Culture - Preliminary Blood - Peripheral No growth in 3 days Anaerobic Blood Culture - Preliminary No growth in 3 days - Impressions ITS Impressions Chest X-Ray 01/03/18 00:00 CONCLUSION: 1. Stable fibrotic changes predominantly in the bases. 2. Stable postsurgical changes with intact median sternotomy wires. Prior TAVR. Discharge Plan - Discharge Disposition Patient Disposition: /Home Health Service - Discharge Condition Condition: Stable - Discharge Order Discharge Orders: Discharge Order (Routine); Ordered 01/03/18 Ordered By: Ming Paulino - Discharge Details Anticipated Discharge Date: 12/30/17 - Physicians Team Primary Care Provider: UNKNOWN, Attending Provider: Ming Paulino Other Providers: Khushboo Crow MD ; Mary Ramirez MD ; Chavez,Hanscy, MD - Rxs /Orders / Referrals /Forms Prescriptions: New levofloxacin 750 mg Tablet 750 mg PO DAILY Qty: 7 RF: 0 Continue aspirin 81 mg Tablet,Chewable 81 mg PO DAILY atorvastatin 80 mg Tablet 80 mg PO DAILY clopidogrel [Plavix] 75 mg Tablet 75 mg PO DAILY isosorbide mononitrate 120 mg Tablet Extended Release 24 Hr 120 mg PO DAILY losartan 50 mg Tablet 50 mg PO DAILY nitroglycerin 0.4 mg Tablet, Sublingual 0.4 mg SUBLINGUAL Q5-15M PRN (Reason: Chest Pain) ranolazine [Ranexa] 500 mg Tablet Extended Release 12 Hr 500 mg PO Q12H Discontinued amlodipine 10 mg Tablet 10 mg PO DAILY finasteride [Proscar] 5 mg Tablet 5 mg PO DAILY furosemide 20 mg Tablet 20 mg PO DAILY Ambulatory Orders / Order Sets / DME: Walker With Front Wheels (1 each) (Routine) Location: Determined by Patient Ordered By: Ming Paulino Referrals: Khushboo Crow MD [Physician] - See Instructions (1wk) Giovanni García MD, PhD [Family Provider] - See Instructions (3d) UNKNOWN, [Primary Care Provider] - See Instructions - Discharge Instructions Patient Printed Instructions: Using Oxygen at Home (DC), Bradycardia (DC), Pulse Oximetry (DC) Additional Instructions: Front Wheeled Walker ordered from [facility], with expected delivery to the home address. [facility] [phone] KEEP ALL DOCTORS APPOINTMENTS DIRECTED. TAKE ALL MEDICATIONS DIRECTED. CONTACT PHYSICIAN OR GO TO AN EMERGENCY ROOM FOR DIFFICULTY BREATHING, DIZZINESS , INCREASED AGITATION OR ANY OTHER CARDIAC/BREATHING CONCERNS. - Post Discharge Care Plan Care Plan Goals: Your Health Problems: Goals to Promote Your Health: * To prevent worsening of your condition * To maintain your health at the optimal level Directions to Meet Your Goals: * Take your medications as prescribed * Follow your dietary instruction * Follow activity as directed * Keep your appointments as scheduled * Take your immunizations and boosters as scheduled * If your symptoms worsen call your PCP * If no PCP go to Urgent Care or Emergency Room Smoking is dangerous to your health. Avoid second hand smoke. You may reach the 24-hour crisis hotline for domestic abuse at .
--- NOTE | 2018-01-03 19:22 | MB ---
cc: Steve Byrne MD DATE: 01/02/2018 DATE OF CONSULTATION: 01/02/2018 REASON FOR CONSULTATION: Possible 2:1 AV block. HISTORY OF PRESENT ILLNESS: Mr. Shepard is an 87-year-old gentleman who was admitted with a history of coronary artery disease, hyperlipidemia, CVA, coronary artery bypass grafting, previous PTCA. He also had a TAVR in 05/2016, hyperlipidemia. He was admitted due to dizziness and tiredness. He was found to have pneumonia. During hospitalization he was seen by Dr. Farias. There is a possibility of Mobitz type 2 or 2:1 AV block. I was consulted for evaluation and management. The chart was reviewed and the patient was evaluated. ALLERGIES: IODINE AND CRAB. SOCIAL HISTORY: Negative for smoking and drinking. FAMILY HISTORY: Noncontributory to his current medical condition. MEDICATIONS: 1. Aspirin 825 mg a day. 2. Albuterol 80 mg a day. 3. Plavix 75 mg a day. 4. Mucinex 600 mg twice a day. 5. Imdur 120 mg daily. 6. Levaquin. 7. Losartan 50 mg once a day. 8. Potassium. 9. Ranexa 500 mg every 12 hours. REVIEW OF SYSTEMS: He is feeling better. No chest pain, no coughing, no dizziness, some tiredness. PHYSICAL EXAMINATION: GENERAL: Alert, fully oriented. VITAL SIGNS: His blood pressure on evaluation was 129/77, pulse was 109, respiratory rate 18-20. LUNGS: Ventilated. CARDIOVASCULAR: S1, S2, tachycardic. ABDOMEN: Soft, no mass. No bruits. EXTREMITIES: No edema. LABORATORY DATA: Electrocardiogram indicates sinus bradycardia. Analyzing the tracing it looked like this patient has some new wave that can be misinterpreted for P-wave. Is to analyze very well in lead II. The morphology at the end of the ST looked flattened. . This is not a clear P-wave. Further down in V1, V2, we can clearly see a flat deflection versus dome deflection of the P-wave in the lead. Also, this gentleman currently is on what appeared to be a sinus tachycardia with a long MD interval. This is not apparently a junctional rhythm. There is no change in the same axis. I think what we were seeing on the first echocardiogram that was done on 01/01/2018, this is sinus bradycardia and some U wave at the end of the ST segment. There is no need for further electrophysiology evaluation. My recommendation is to continue with current management. This gentleman can be discharged home. If there is any symptom, then I will consider electrophysiology study. Case will be discussed with Dr. Farias. The case was already discussed with the gentleman and his . I understand his son is a spinal surgeon. I told the he can call me anytime to discuss the case. MD VIKAS Ybarra/ch/ll , 04:36 PM , 04:47 PM
== END 2018-01-03 21:35 | disposition home health service (06) ==
LOC: N06 11:18 → NEPC 11:18 → INTOOBSV 14:30 → NEPGCP 14:30 → N06 01-02 00:27
PROVIDERS: ADMIT Hospitalist; ATTEND Hospitalist